=== PATIENT | male | born 1945 | race Caucasian/White ===

== ENCOUNTER 2021-11-02 10:23 | Day surgery (SDC) | payer MEDICARE, MEDICAID, SELFPAY ==
[2021-11-02] VITALS (8 sets, daily range): BP systolic 140–206; BP diastolic 79–119; PULSE 77–97; RESP 12–18; TEMP 36.1–36.9; O2SAT 93–100; BMI 28.7
--- NOTE | 2021-11-02 10:36 | ED_ITS ---
HPI - General Adult General: Chief complaint: Airway/Esophagus Foreign Body Stated complaint: Can't eat or drink Time Seen by Provider: 11/02/21 10:36 History of Present Illness: Mr. Telles is a 76-year-old gentleman with history of known hiatal hernia presents to the emergency department due to concern over recurrent nausea and vomiting. He was at his baseline health yesterday and ate dinner normally. Shortly thereafter he describes recurrent episodes of vomiting of any p.o. intake. He denies associated choking episode. He describes sensation as below the stomach a fullness or food getting stuck. He denies other significant abdominal pain. When he pushes on this area it feels bloated and he subsequently vomits. He has not been able to take his medication. Course of symptoms is intermittent. Intensity when present is moderate. No other specific changes in health, exacerbating, or alleviating factors identified. Onset (ago): hour(s) Location: abdomen Pain Consistency: intermittent Exacerbating factors: eating Review of Systems General: Reports: 10 or more systems reviewed and unremarkable except in HPI and below PFS ED PFSH: Medical History (Updated 11/15/21 @ 15:10 by Jairon De Souza MD) History of stroke Hyperlipidemia Hypertension Surgical History (Updated 11/02/21 @ 13:02 by Jairon De Souza MD) No significant past surgical history Social History (Updated 11/02/21 @ 13:02 by Jairon De Souza MD) Smoking and tobacco status: current every day smoker Physical Exam Const: COMMON NORMALS: alert GENERAL APPEARANCE: cooperative and well developed HENMT: COMMON NORMALS: normocephalic and atraumatic HEAD & SCALP: normocephalic and atraumatic Eye: COMMON NORMALS: conjunctivae normal CONJUNCTIVA: Yes conjunctivae normal SCLERA: sclerae normal Neck/C-Spine: COMMON NORMALS: supple GENERAL: Yes trachea midline Resp: COMMON NORMALS: normal respiratory effort EFFORT & INSPECTION: Yes able to speak in complete sentences Cardio: COMMON NORMALS: regular rate and regular rhythm RATE: regular rate RHYTHM: regular rhythm GI: COMMON NORMALS: Soft to palpation PALPATION: Yes Soft to palpation, Yes Tenderness to palpation present (GI) (Mild generalized), No Guarding due to palpation present (GI) and No Rigid due to palpation PERCUSSION: normal to percussion Extremity: GENERAL: Yes normal exam except as noted and No edema Neuro: COMMON NORMALS: moves all extremities SENSORIUM/ORIENTATION: Yes alert and No Orientation impaired Psych: COMMON NORMALS: mental status grossly normal and Normal thought process present THOUGHT PROCESS: Normal thought process present Course ED course: - Patient was seen and evaluated by me at bedside - Patient placed on cardiac monitors, IV access obtained - Initial evaluation notable for exam as above, no acute airway compromise - Labs and xrays personally interpreted by me. EKG showing sinus rhythm with right bundle branch block. First-degree AV block. No STEMI. - Labs notable for leukocytosis, normal hemoglobin. No significant metabolic abnormality. Delta troponin negative. - Imaging notable for no lobar consolidation or pneumothorax on the chest x-ray. Given somewhat atypical story of symptoms beginning after completion of eating dinner I feel that additional imaging is required. Likely distal esophageal foreign body with hiatal hernia. - Attempted glucagon with soda without resolution. Patient still unable to tolerate p.o. intake. - Upon serial reexamination after treatment the patient was similar - Based on patient history, evaluation, and testing as interpreted the most likely cause of the patient's condition is suspected food bolus - The results of ED evaluation were discussed with the patient including plan for endoscopy for direct visualization and cure if possible - Case was discussed with Dr. Mcghee who is on-call for GI. He came to evaluate the patient and plans to take for endoscopy. - Patient was taken to GI lab without further deterioration or significant events. Note: Click bubbles or prepopulated shore in note writing are used for assistance with data collection and billing and are inherently more limited than narrative and other text portions of this note. Please use narrative for additional clinical history and defer to narrative/free test for any case of contradictory information. If information appears in only free text or click bubble it should be considered present or absent as reported. Please contact note television script writer for clarifications of clinical information or contradictory information. MDM is a brief summary, contradictory or erroneous seeming information should be clarified and full note should be reviewed. Vital Signs: Vital signs: Vital Signs Temperature 98.2 F 11/02/21 14:29 Pulse Rate 90 11/02/21 14:34 Respiratory Rate 18 11/02/21 14:34 Blood Pressure 173/94 11/02/21 14:34 Pulse Oximetry 95 11/02/21 14:34 MDM - General Adult Medical Decision Making 76-year-old gentleman presenting with inability to tolerate oral intake. Story is somewhat atypical as he noticed symptoms after completion of the eating dinner with right emesis. No specific choking or gagging event preceding sudden change. Attempted treatment in the ED without improvement. Labs and imaging performed. Suspect food bolus. GI consulted and took patient for endoscopy. Medical Records I reviewed the patient's medical records. Lab Data I reviewed the patient's lab results. : 11/02/21 11:05 11/02/21 11:05 Radiology Impressions Chest X-Ray 11/02/21 10:53 IMPRESSION: 1. No acute cardiopulmonary finding. Chest/Abdomen/Pelvis CT 11/02/21 11:11 IMPRESSION: 1. Small esophageal hiatal hernia with suggestion of intraluminal lesion involving the distal thoracic esophagus with wall thickening and luminal narrowing. Considerations include intraluminal polypoid lesion versus obstructed hiatal hernia or associated stricture. Recommend further evaluation with endoscopy and/or upper GI. Neoplasm not excluded. 2. Intra-abdominal stomach appears unremarkable. 3. Enlarged prostate measuring 5.7 cm. Recommend correlation PSA. 4. No other acute findings. Notified Jairon De Souza MD at 11/02/2021 12:27 PM. Laboratory Results WBC 15.8 10^3/uL (4.0-10.0) H 11/02/21 11:05 RBC 5.10 10^6/uL (4.1-5.3) 11/02/21 11:05 Hgb 15.3 g/dL (11.7-16.6) 11/02/21 11:05 Hct 46.1 % (42.0-52.0) 11/02/21 11:05 MCV 90.4 fl (80-94) 11/02/21 11:05 MCH 30.0 pg (28.0-34.0) 11/02/21 11:05 MCHC 33.2 g/dL (30.0-36.0) 11/02/21 11:05 RDW 13.2 % (12.1-15.1) 11/02/21 11:05 Plt Count 319 10^3/cmm (130-400) 11/02/21 11:05 MPV 11.4 fL (7.4-10.4) H 11/02/21 11:05 Neut % (Auto) 73.3 % 11/02/21 11:05 Lymph % (Auto) 17.0 % 11/02/21 11:05 [place] % (Auto) 6.6 % 11/02/21 11:05 Eos % (Auto) 2.4 % 11/02/21 11:05 Baso % (Auto) 0.3 % 11/02/21 11:05 Neut # (Auto) 11.56 10^3/uL (1.8-7.7) H 11/02/21 11:05 Lymph # (Auto) 2.7 10^3/uL (0.8-4.8) 11/02/21 11:05 [place] # (Auto) 1.0 10^3/uL (0.2-0.9) H 11/02/21 11:05 Eos # (Auto) 0.4 10^3/uL (0.0-0.8) 11/02/21 11:05 Baso # (Auto) 0.1 10^3/uL (0.0-0.1) 11/02/21 11:05 Nucleated RBC % (auto) 0 % 11/02/21 11:05 Nucleated RBCs # 0.0 /100WBC 11/02/21 11:05 Sodium 138 mmol/L (136-145) 11/02/21 11:05 Potassium 4.0 mmol/L (3.5-5.1) 11/02/21 11:05 Chloride 101 mmol/L (98-107) 11/02/21 11:05 Carbon Dioxide 25 mmol/L (22-29) 11/02/21 11:05 Anion Gap 16.0 (5-19) 11/02/21 11:05 BUN 19 mg/dL (8-23) 11/02/21 11:05 Creatinine 0.9 mg/dL (0.7-1.2) 11/02/21 11:05 GFR Calculation Not Reportable 11/02/21 11:05 Glucose 116 mg/dL (65-115) H 11/02/21 11:05 Calculated Osmolality 289 mOsm/kg (285-295) 11/02/21 11:05 Calcium 9.2 mg/dL (8.5-10.5) 11/02/21 11:05 Total Bilirubin 0.6 mg/dL (0.15-1.2) 11/02/21 11:05 AST 18 U/L (0-40) 11/02/21 11:05 ALT 23 U/L (0-41) 11/02/21 11:05 Alkaline Phosphatase 89 IU/L (40-130) 11/02/21 11:05 Troponin T Baseline 22 ng/L (0-15) H 11/02/21 11:05 Troponin T 120 Minute 20.58 ng/L (0-15) H 11/02/21 13:26 Delta Troponin T -1.42 ABS# (0-10) L 11/02/21 13:26 Total Protein 7.9 g/dL (6.6-8.7) 11/02/21 11:05 Albumin 4.5 g/dL (3.5-5.2) 11/02/21 11:05 Globulin 3.4 g/dL (1.3-4.6) 11/02/21 11:05 Lipase 30 U/L (13-60) 11/02/21 11:05 Urine Color Yellow (Yellow) 11/02/21 13:25 Urine Appearance Clear (CLEAR) 11/02/21 13:25 Urine pH 7 (5-7) 11/02/21 13:25 Ur Specific [place] 1.010 (1.005-1.030) 11/02/21 13:25 Urine Protein 3+ (Negative) H 11/02/21 13:25 Urine Glucose (UA) Norm (Normal) 11/02/21 13:25 Urine Ketones Negative (Negative) 11/02/21 13:25 Urine Blood Neg (Negative) 11/02/21 13:25 Urine Nitrate Negative (Negative) 11/02/21 13:25 Urine Bilirubin Neg (Negative) 11/02/21 13:25 Urine Urobilinogen Norm mg/dL (Negative) 11/02/21 13:25 Ur Leukocyte Esterase Negative (Negative) 11/02/21 13:25 Urine RBC 0-4 /hpf (0-2) H 11/02/21 13:25 Urine WBC None /hpf (0-5) 11/02/21 13:25 Ur Squamous Epith Cells 0-4 /hpf (0-5) H 11/02/21 13:25 Amorphous Sediment Not Reportable 11/02/21 13:25 Urine Bacteria None /hpf (NONE) 11/02/21 13:25 Hyaline Casts 0-4 /lpf H 11/02/21 13:25 H. pylori IgG Antibody Negative 11/02/21 14:13 Discharge Plan Discharge Patient Disposition: Placed in Observation Clinical Impression: Acute esophageal obstruction Condition: Stable Discharge Orders: Discharge Order (Routine); Ordered 11/02/21 Ordered By: Fady Mcghee Coding Level of Care Code ED Plodding Machine Operator for Chg Fwd Exam Comprehensive
--- NOTE | 2021-11-02 10:53 | XR_ITS ---
WS: [id number] Exam: XR chest 1V portable [id number] Date/Time of Exam: 11/02/2021 10:56 AM Reason For Exam: tachycardia, hypertension Comparison 01/06/2011. The lungs are clear and fully expanded. Normal cardiomediastinal silhouette. No pleural effusions. [place] structures are intact. XR/XR chest 1V portable [id number] IMPRESSION: 1. No acute cardiopulmonary finding.
--- NOTE | 2021-11-02 10:54 | ECG_ITS ---
[facility] Test Date: 2021-11-02 Pat Name: Pati Telles Department: Room: Gender: Male Legal Process Specialist: : 1945 Requested By: Jairon De Souza Order Number: [id number] Shanthi MD: Ethan Dozier M.D. Measurements Intervals [place] Rate: 84 P: 99 TN: 240 QRS: 184 QRSD: 142 T: 50 QT: 385 QTc: 457 Interpretive Statements SINUS RHYTHM WITH SINUS ARRHYTHMIA WITH FIRST DEGREE AV BLOCK INDETERMINATE AXIS RIGHT BUNDLE BRANCH BLOCK [120+ ms QRS DURATION, UPRIGHT V1, 40+ ms S IN I/aVL/V4/V5/V6] No previous ECG available for comparison Electronically Signed On 11-02-2021 22:30:15 CDT by Ethan Dozier M.D. [email or web address] [email or web address] [id number]
--- NOTE | 2021-11-02 11:11 | CT_ITS ---
WS: [id number] CT CHEST, ABDOMEN, AND PELVIS TECHNIQUE: Noncontrast CT of the chest, abdomen, and pelvis with coronal and sagittal reformatted elijah ges. CLINICAL INFORMATION: n/v, hx hiatal hernia, ?obstruction/food bolus COMPARISON: None. DLP: 2051.[address] scans at [facility] use at least one of these dose optimization techniques: automated e xposure control; mA and/or kV adjustment per patient size (includes targeted exams where dose is matc hed to clinical indication); or iterative reconstruction. CT CHEST: Mild chronic emphysematous changes. No acute pulmonary infiltrates. No focal pneumonia or pleural flu id. Normal caliber thoracic aorta. Aortic calcification. Coronary calcification. No mediastinal or hi lar lymphadenopathy. No axillary lymphadenopathy. Small nodules in the thyroid. Mild thoracic kyphosis. Mild thoracic curve. Small esophageal hiatal hernia with thickening at the di stal esophagus and GE junction. Suggestion of intraluminal lesion measuring 1.5 cm with luminal narro wing may represent intraluminal polypoid lesion or obstructed hernia. This can be further evaluated w ith endoscopy. Stomach otherwise appears normal. CT ABDOMEN AND PELVIS: Noncontrast liver is normal. Normal gallbladder. Normal spleen. Fatty atrophy of the pancreas. Adrena l glands are normal. Mild bilateral renal cortical atrophy. No hydronephrosis. Normal caliber abdomin al aorta. Mild aortic calcification. Enlarged prostate measuring 5.7 CM. Recommend correlation PSA. N ormal sigmoid colon. No evidence of high-grade small or large bowel obstruction. Normal appendix in t he RIGHT lower quadrant. No periaortic pelvic or inguinal lymphadenopathy. Fat-containing umbilical hernia. CT/[place] [id number] IMPRESSION: 1. Small esophageal hiatal hernia with suggestion of intraluminal lesion invol ving the distal thoracic esophagus with wall thickening and luminal narrowing. Considerations include intraluminal polypoid lesion versus obstructed hiatal he rnia or associated stricture. Recommend further evaluation with endoscopy and/o r upper GI. Neoplasm not excluded. 2. Intra-abdominal stomach appears unremarkable. 3. Enlarged prostate measuring 5.7 cm. Recommend correlation PSA. 4. No other acute findings. Notified Jairon De Souza MD at 11/02/2021 12:27 PM.
[2021-11-02 11:14] LABS: Basophils # 0.1 10^3/uL (0.0-0.1); Basophils % 0.3 %; Eosinophils # 0.4 10^3/uL (0.0-0.8); Eosinophils % 2.4 %; Hematocrit 46.1 % (42.0-52.0); Hemoglobin 15.3 g/dL (11.7-16.6); Lymphocytes # 2.7 10^3/uL (0.8-4.8); Mean Corpuscular HGB Conc 33.2 g/dL (30.0-36.0); Mean Corpuscular Volume 90.4 fl (80-94); Mean Platelet Volume 11.4 fL (7.4-10.4); Monocytes % 6.6 %; Neutrophils # 11.56 10^3/uL (1.8-7.7); Neutrophils % 73.3 %; Nucleated Red Blood Cells % 0 %; Platelet Count 319 10^3/cmm (130-400); Red Cell Distribution Width 13.2 % (12.1-15.1); White Blood Count 15.8 10^3/uL (4.0-10.0)
[2021-11-02] MEDS: ondansetron 2 mg/ML SDV 2 mL 4 MG IVP (11:26)
[2021-11-02 11:37] LABS: Alanine Aminotransferase 23 U/L (0-41); Albumin Level 4.5 g/dL (3.5-5.2); Alkaline Phosphatase 89 IU/L (40-130); Aspartate Amino Transferase 18 U/L (0-40); Blood Urea Nitrogen 19 mg/dL (8-23); Calcium 9.2 mg/dL (8.5-10.5); Carbon Dioxide 25 mmol/L (22-29); Chloride 101 mmol/L (98-107); Globulin 3.4 g/dL (1.3-4.6); Glucose 116 mg/dL (65-115); Lipase 30 U/L (13-60); Osmolality Calculated 289 mOsm/kg (285-295); Sodium 138 mmol/L (136-145); Total Bilirubin 0.6 mg/dL (0.15-1.2); Total Protein 7.9 g/dL (6.6-8.7)
[2021-11-02 11:38] LABS: Troponin(5th) Baseline 22 ng/L (0-15)
--- NOTE | 2021-11-02 12:54 | ECG_ITS ---
[facility] Test Date: 2021-11-02 Pat Name: Pati Telles Department: Room: Gender: Male Correspondence Renew Clerk: : 1945 Requested By: Jairon De Souza Order Number: [id number] Shanthi MD: Ethan Dozier M.D. Measurements Intervals [place] Rate: 85 P: 69 MA: 231 QRS: 153 QRSD: 140 T: 52 QT: 385 QTc: 460 Interpretive Statements SINUS RHYTHM WITH SINUS ARRHYTHMIA WITH FIRST DEGREE AV BLOCK INDETERMINATE AXIS RIGHT BUNDLE BRANCH BLOCK [120+ ms QRS DURATION, UPRIGHT V1, 40+ ms S IN I/aVL/V4/V5/V6] Compared to ECG 11/02/2021 11:01:43 No significant changes Electronically Signed On 11-02-2021 22:32:07 CDT by Ethan Dozier M.D. [id number]
--- NOTE | 2021-11-02 13:32 | P.HP_ITS ---
Same Day Surgery H&P Indication for Procedure/HPI DATE OF PROCEDURE: November 02, 2021 CHIEF COMPLAINT/INDICATIONFOR SURGICAL PROCEDURE: Meat impaction PREOP DIAGNOSIS: Meat impaction PLANNED PROCEDURE: Operation Date: 11/02/21 13:30 Proposed Procedures p EGD WITH FOREIGN BODY REMOVAL(Not Applicable) - Fady Mcghee MD Pertinent History/Comorbid Conditions* Medical History (Updated 11/02/21 @ 13:02 by Jarion De Souza MD) History of stroke Hyperlipidemia Hypertension Surgical History (Updated 11/02/21 @ 13:02 by Jairon De Souza MD) No significant past surgical history Social History Smoking and tobacco status: current every day smoker Pertinent Exam Findings alert, oriented x 3, clear to auscultation bilaterally, regular rate & rhythm, operative site marked and procedure specific exam findings Recommendations Surgery/Procedure today Coding Level of Care Code Acute Milk Route Deliverer for Shemar Candelaria
[2021-11-02] MEDS: sodium chloride 0.9% 1,000 ML 30 ML IV (13:40)
[2021-11-02 13:58] LABS: Add Urine Culture? No; Add Urine Microscopic? YES; Bilirubin Urine Neg (Negative); Blood Urine Neg (Negative); Glucose Urine UA Norm (Normal); Ketones Urine Negative (Negative); Leukocyte Esterase Urine Negative (Negative); Nitrate Urine Negative (Negative); Protein Urine 3+ (Negative); RBC Urine 0-4 /hpf (0-2); Squamous Epithelial Cell Urine 0-4 /hpf (0-5); Urine Appearance Clear (CLEAR); Urine Color Yellow (Yellow); Urobilinogen Urine Norm (Negative); pH Urine 7 (5-7)
[2021-11-02 13:59] LABS: Hyaline Casts Urine 0-4 /lpf
[2021-11-02 14:07] LABS: Troponin 5 2HR 20.58 ng/L (0-15)
[2021-11-02 14:13] LABS: Troponin 5 2HR Delta -1.42 ABS# (0-10)
--- NOTE | 2021-11-02 14:26 | ANES.PREANE2 ---
Pre-Anesthetic Assessment Height/Weight: Height 1.83 m Weight 96.162 kg Temp Pulse Resp BP Pulse Ox 97.0 F L 77 16 172/79 94 11/02/21 14:15 11/02/21 14:23 11/02/21 14:23 11/02/21 14:23 11/02/21 14:23 Preop Diagnosis: Meat impaction Operation Date: 11/02/21 13:30 Proposed Procedures p EGD WITH FOREIGN BODY REMOVAL(Not Applicable) - Fady Mcghee MD Familial anesthetic complications: None Was Beta Ken taken within 24 hours: N/A Was Clonidine taken within 24 hours: N/A Social No alcohol and No tobacco Exam alert, oriented x 3 and regular rate & rhythm Airway Submandibular: within normal limits Cervical ROM: within normal limits Mallampati: Class II Dentition: false Pulmonary Chronic Obstructive Pulmonary Disease CV/HEM Hypertension GI Gastroesophageal Reflux Disease Food bolus Metabolic Hyperlipidemia Neuropsych Cerebrovascular Accident Anesthetic Plan ASA status: 3E Anesthesia: General (RSI) Medications/Allergies Home Medications Medication Instructions Recorded Confirmed Last Taken Type budesonide-formoterol HFA 160 2 puff INHALATION BID 11/02/21 11/02/21 Unknown History mcg-4.5 mcg/actuation aerosol inhaler (Symbicort) clonidine HCl 0.1 mg tablet 0.1 mg PO TID PRN 11/02/21 11/02/21 Unknown History diclofenac potassium 50 mg tablet 50 mg PO BID 11/02/21 11/02/21 Unknown History finasteride 5 mg tablet 5 mg PO DAILY 11/02/21 11/02/21 Unknown History gabapentin 300 mg capsule 300 mg PO TID 11/02/21 11/02/21 Unknown History losartan 50 mg tablet 50 mg PO DAILY 11/02/21 11/02/21 Unknown History metoprolol tartrate 100 mg tablet 100 mg PO BID 11/02/21 11/02/21 Unknown History simvastatin 40 mg tablet 40 mg PO DAILY 11/02/21 11/02/21 Unknown History tamsulosin 0.4 mg capsule 0.4 mg PO DAILY 11/02/21 11/02/21 Unknown History tramadol 50 mg tablet 50 mg PO QID PRN 11/02/21 11/02/21 Unknown History Allergies Allergy/AdvReac Type Severity Reaction Status Date / Time No Known Allergies Allergy Verified 11/02/21 14:07 [facility] Anesthesia Medical History (Updated 11/02/21 @ 13:02 by Jairon De Souza MD) History of stroke Hyperlipidemia Hypertension Surgical History (Updated 11/02/21 @ 13:02 by Jairon De Souza MD) No significant past surgical history Social History (Updated 11/02/21 @ 13:02 by Jairon De Souza MD) Smoking and tobacco status: current every day smoker Data Anesthesia : 11/02/21 11:05 11/02/21 11:05 Short CBC 11/02/21 Range/Units 11:05 WBC 15.8 H (4.0-10.0) 10^3/uL Hgb 15.3 (11.7-16.6) g/dL Hct 46.1 (42.0-52.0) % MCV 90.4 (80-94) fl Plt Count 319 (130-400) 10^3/cmm Neut % (Auto) 73.3 % Neut # (Auto) 11.56 H (1.8-7.7) 10^3/uL BMP 11/02/21 11:05 Sodium 138 Potassium 4.0 Chloride 101 Carbon Dioxide 25 BUN 19 Creatinine 0.9 Glucose 116 H Calcium 9.2 Cardiac Enzymes 11/02/21 11/02/21 Range/Units 11:05 13:26 Troponin T Baseline 22 H (0-15) ng/L Troponin T 120 Minute 20.58 H (0-15) ng/L Delta Troponin T -1.42 L (0-10) ABS# Liver Function 11/02/21 Range/Units 11:05 Total Bilirubin 0.6 (0.15-1.2) mg/dL AST 18 (0-40) U/L ALT 23 (0-41) U/L Alkaline Phosphatase 89 (40-130) IU/L Albumin 4.5 (3.5-5.2) g/dL Urine 11/02/21 Range/Units 13:25 Urine Color Yellow (Yellow) Urine Appearance Clear (CLEAR) Urine pH 7 (5-7) Ur Specific [place] 1.010 (1.005-1.030) Urine Protein 3+ H (Negative) Urine Glucose (UA) Norm (Normal) Urine Ketones Negative (Negative) Urine Nitrate Negative (Negative) Urine Bilirubin Neg (Negative) Ur Leukocyte Esterase Negative (Negative) Urine RBC 0-4 H (0-2) /hpf Urine WBC None (0-5) /hpf Cardiac Studies: No Data to Display
--- NOTE | 2021-11-02 14:28 | ANE.PACU2 ---
Inpatient post-anesthesia follow up: Airway intact: Yes Vital signs: Temperature 97.0 F Pulse Rate 77 Respiratory Rate 16 Blood Pressure 172/79 Pulse Oximetry 94 Oxygen Delivery Me thod Room Air Oxygen Flow Rate 10 Fraction of Inspir ed Oxygen Hydration adequate: Yes Nausea and vomiting: No Pain level: 2 Mental status: Baseline
--- NOTE | 2021-11-02 14:38 | PC.NURSE ---
1429 received patient from Sruthi SEGURA. Patient alert, no distress noted, respirations even and nonlabored. 1432 patients at bedside. patient talkative, denies pain.
--- NOTE | 2021-11-02 14:43 | PC.NURSE ---
Dr Mcghee at bedside visiting with patient and answering questions.
[2021-11-03 14:17] LABS: H. Pylori / CLO Test Negative
== END 2021-11-02 15:09 | disposition home or self-care (01) ==
LOC: ER 13:02 → GILAB 13:26
PROVIDERS: Emergency Provider Emergency Medicine; PCP Family Medicine; Visit Provider Internal Medicine
PROC: 0DJ08ZZ Inspection of Upper Intestinal Tract, Via Natural or Artificial Opening Endoscopic (ICD-10-PCS; CPT 43235; principal; 2021-11-02 13:30)
DX: T18.128A Food in esophagus causing other injury, initial encounter (principal); E78.5 Hyperlipidemia, unspecified; I10 Essential (primary) hypertension; Z86.73 Personal history of transient ischemic attack (TIA), and cerebral infarction without residual deficits; K29.71 Gastritis, unspecified, with bleeding; K25.7 Chronic gastric ulcer without hemorrhage or perforation; J44.9 Chronic obstructive pulmonary disease, unspecified; F17.210 Nicotine dependence, cigarettes, uncomplicated
CPT/HCPCS: 36415; 43239; 43247; 71045; 71250; 74176; 80053; 81001; 83690; 84484; 85025; 87077; 93005; J0330; J1610; J2405; J2704; J7030

== ENCOUNTER → 2022-08-21 14:00 | Outpatient (BNVA) | payer MEDICARE, MEDICAID, SELFPAY | PROVIDERS: PCP Family Medicine; Visit Provider Thoracic Surgery (Cardiothoracic Vascular Surgery) | DX: I73.9 Peripheral vascular disease, unspecified (principal) | CPT/HCPCS: 99203 ==

== ENCOUNTER → 2022-09-04 11:01 | Outpatient (BNVA) | payer MEDICARE, MEDICAID, SELFPAY | PROVIDERS: PCP Family Medicine; Referring Provider Nurse Practitioner Family; Visit Provider Orthopaedic Surgery | DX: M43.16 Spondylolisthesis, lumbar region (principal) | CPT/HCPCS: 72110; 99204 ==

== ENCOUNTER 2022-09-28 13:28 | Outpatient (CLI) | payer MEDICARE, MEDICAID, SELFPAY ==
--- NOTE | 2022-09-28 | USR_ITS ---
PROCEDURE INFORMATION: Exam: US Duplex Lower Extremity Arteries Exam date and time: 09/28/2022 1:57 PM Age: 76 years old Clinical indication: Other: Pulselessness; Additional info: Bilat leg pain TECHNIQUE: Imaging protocol: Real-time ultrasound scan of the arteries of the bilateral lower extremities with 2-D adan scale, color Doppler flow and spectral waveform analysis. Images documented and saved. COMPARISON: [place] [id number] 11/02/2021 11:33 AM FINDINGS: Peak systolic velocities on the RIGHT are as follows: Iliac artery 76 cm/s biphasic Common femoral artery 115 cm/s there monophasic Proximal superficial femoral artery 101 cm/s biphasic Mid superficial femoral artery 134 cm/s biphasic Distal superficial femoral artery 234 cm/s biphasic Popliteal artery 62 cm/s biphasic Posterior tibial artery 50 cm/s biphasic Dorsalis pedis artery 28 cm/s biphasic Peak systolic velocities on the LEFT are as follows: Iliac artery 47 cm/s monophasic Common femoral artery 53 cm/s monophasic Proximal superficial femoral artery 38 cm/s monophasic Distal superficial femoral artery 115 cm/s monophasic Popliteal artery 22 cm/s monophasic Posterior tibial artery 19 cm/s monophasic Dorsalis pedis artery 15 cm/s monophasic No arterial occlusion. US/[place] [id number] IMPRESSION: No arterial occlusion. There is peripheral arterial disease.
== END 2022-09-28 13:29 | disposition home or self-care (01) ==
PROVIDERS: PCP Family Medicine; Visit Provider Thoracic Surgery (Cardiothoracic Vascular Surgery)
DX: M79.604 Pain in right leg (principal); I73.9 Peripheral vascular disease, unspecified
CPT/HCPCS: 93925

== ENCOUNTER → 2023-06-04 10:59 | Outpatient (BNVA) | payer MEDICARE, MEDICAID, SELFPAY | PROVIDERS: PCP Family Medicine; Referring Provider Family Medicine; Visit Provider Surgery | DX: Z12.11 Encounter for screening for malignant neoplasm of colon (principal) | CPT/HCPCS: 99024; 99203; 99204 ==

== ENCOUNTER 2023-06-16 12:53 | Inpatient (IN) | payer MEDICARE, MEDICAID, SELFPAY ==
[2023-06-16] VITALS (12 sets, daily range): BP systolic 118–191; BP diastolic 90–129; PULSE 105–142; RESP 15–28; TEMP 36.9–37.4; O2SAT 90–96; BMI 28.5
--- NOTE | 2023-06-16 13:21 | XRR_ITS ---
PROCEDURE INFORMATION: Exam: XR Chest Exam date and time: 06/16/2023 1:37 PM Age: 77 years old Clinical indication: Shortness of breath; Patient HX: SOB; Cough; Tremors; HX copd TECHNIQUE: Imaging protocol: Radiologic exam of the chest. Views: 1 view. COMPARISON: CT chest [place] [id number] 11/02/2021 11:33 AM FINDINGS: Lungs: Subtle opacity seen at the right lower lung base. Mild bilateral curvilinear opacities which can be seen with emphysematous lung changes. Pleural spaces: Unremarkable. No pleural effusion. No pneumothorax. Heart/Mediastinum: Unremarkable. No cardiomegaly. Bones/joints: Unremarkable. XR/XR chest 1V portable [id number] IMPRESSION: Subtle left lower lung base opacity. Differential diagnosis includes infectious versus neoplastic processes. Further evaluation with cross-sectional imaging may be obtained.
--- NOTE | 2023-06-16 13:21 | ECG_ITS ---
[facility] Test Date: 2023-06-16 Pat Name: Pati Telles Department: Room: Gender: Male Hog Tender: : 1945 Requested By: Gildardo Ariza Order Number: [id number] Shanthi MD: Ethan Dozier M.D. Measurements Intervals [place] Rate: 141 P: 0 MD: 0 QRS: 144 QRSD: 137 T: 43 QT: 302 QTc: 463 Interpretive Statements ATRIAL FIBRILLATION WITH RAPID VENTRICULAR RESPONSE RIGHT AXIS DEVIATION [QRS AXIS > 100] RIGHT BUNDLE BRANCH BLOCK [120+ ms QRS DURATION, UPRIGHT V1, 40+ ms S IN I/aVL/V4/V5/V6] Compared to ECG 11/02/2021 12:31:30 Right-axis deviation now present Sinus rhythm no longer present Sinus arrhythmia no longer present First degree AV block no longer present Indeterminate axis no longer present Electronically Signed On 06-17-2023 8:37:20 JEWEL STRIPPER by Ethan Dozier M.D. [id number]
--- NOTE | 2023-06-16 13:38 | W.ED.SOB ---
HPI - SOB/Dyspnea General: Chief Complaint: Shortness of Breath/Dyspnea Stated Complaint: sob, shakes, cough Time Seen by Provider: 06/16/23 13:30 History of Present Illness: HPI Narrative: 77-year-old male patient comes in today with shortness of breath and cough for the last 2 weeks. Patient has a history of COPD. Patient has not yet been treated for his cough and congestion. Patient denies any chest pain. Patient appears unwell but not toxic. Skin is warm and dry. Vital signs are normal except for some elevated blood pressure in irregular rapid pulse. Patient has a history of coronary artery disease, stroke syndrome, prostate disease and chronic pain syndrome. Patient was found in atrial fibrillation but denies any history of atrial fibs. Review of Systems General: Reports: 10 or more systems reviewed and unremarkable except in HPI and below Resp: Reports: productive cough PFSH ED PFSH: Medical History (Updated 06/16/23 @ 14:30 by DIDI Chaudhry) History of stroke Hyperlipidemia Hypertension Surgical History (Updated 06/04/23 @ 11:47 by DIANE Gann) No significant past surgical history Family History Father CAD (coronary artery disease) Diabetes Mother CAD (coronary artery disease) Sister Cancer Denies family history of Hypertension Social History Smoking and tobacco/nicotine status: former use of tobacco/nicotine Quit status (tobacco/nicotine): has quit using Year quit tobacco: 2022 Former quit date comment: smoked up to 2 pack per day x 61 years Alcohol intake: former Year of sobriety/quit date alcohol: 2013 Substance/Drug Use: never Household members: spouse Housing: House Marital status: Number of children: 4 Pets and animals: No Physical Exam Const: COMMON NORMALS: alert HENMT: COMMON NORMALS: normocephalic HEAD & SCALP: normocephalic Chest: COMMONS NORMALS: normal inspection of the chest Resp: COMMON NORMALS: normal respiratory effort AUSCULTATION: rhonchi and diminished lung sounds Cardio: RATE: tachycardic RHYTHM: abnormal rhythm GI: COMMON NORMALS: Soft to palpation PALPATION: Yes Soft to palpation Back/Pelvis: COMMON NORMALS: thoracic and lumbar spine normal to inspection Extremity: COMMON NORMALS: no pedal edema Neuro: SENSORIUM/ORIENTATION: Yes alert Skin: NARRATIVE SKIN EXAM: Senile purpura, fair skin turgor. Course ED course: 1340, EKG showed a A-fib with RVR in the 130s to 150s. Reviewed this with Dr. Ariza who recommended a bolus of Cardizem and fluids. Patient does take metoprolol 200 mg daily although when questioned patient has no history of atrial fibs. Dr. Ariza recommended 10 of Cardizem followed by IV Cardizem drip. Vital Signs: Vital signs: Vital Signs Temperature 98.4 F 06/16/23 13:04 Pulse Rate 116 H 06/16/23 13:04 Respiratory Rate 16 06/16/23 13:04 Blood Pressure 175/109 06/16/23 13:04 Pulse Oximetry 94 06/16/23 13:04 Oxygen Delivery Me thod Room Air 06/16/23 13:04 MDM - SOB/Dyspnea Medical Decision Making Patient comes in today with persistent cough x 2 weeks. On exam is found patient was in atrial fibs with RVR in the 150s. Patient has decreased breath sounds with rhonchorous. Abdomen is soft with normal bowel sounds. No edema is noted in the extremities. Differential diagnosis includes but not limited to pneumonia, sepsis, atrial fibs new onset, chest x-ray noted patchy infiltrates in the right lower lung. CBC notes a white count of 14,000. Lactic was 2.8. CMP noted creatinine 1.0. BNP was elevated at 4300 baseline is unknown. Flu and COVID were negative. Patient was treated with Cardizem bolus and Cardizem drip for his atrial fibs. Patient be treated for SIRS versus sepsis with IV fluids and antibiotics. Reviewed this with Dr. Ariza who agreed to plan. Dr. Arellano was consulted for hospitalist admission. Lab Data 06/16/23 13:46 06/16/23 13:46 Labs/Radiology: Radiology Impressions Chest X-Ray 06/16/23 13:21 IMPRESSION: Subtle left lower lung base opacity. Differential diagnosis includes infectious versus neoplastic processes. Further evaluation with cross-sectional imaging may be obtained. Laboratory Results WBC 14.34 10^3/uL (3.29-11.43) H 06/16/23 13:46 RBC 4.80 10^6/uL (3.85-5.65) 06/16/23 13:46 Hgb 14.60 g/dL (11.27-16.99) 06/16/23 13:46 Hct 45.0 % (37-53) 06/16/23 13:46 MCV 93.8 fl (82-101) 06/16/23 13:46 MCH 30.4 pg (27-33) 06/16/23 13:46 MCHC 32.4 g/dL (30-55) 06/16/23 13:46 RDW 13.4 % (12.1-15.1) 06/16/23 13:46 Plt Count 426 10^3/cmm (157-399) H 06/16/23 13:46 MPV 10.3 fL (7.4-10.4) 06/16/23 13:46 Neut % (Auto) 78.9 % 06/16/23 13:46 Lymph % (Auto) 12.7 % 06/16/23 13:46 [place] % (Auto) 7.2 % 06/16/23 13:46 Eos % (Auto) 0.3 % 06/16/23 13:46 Baso % (Auto) 0.3 % 06/16/23 13:46 Neut # (Auto) 11.31 10^3/uL (1.8-7.7) H 06/16/23 13:46 Lymph # (Auto) 1.8 10^3/uL (0.8-4.8) 06/16/23 13:46 [place] # (Auto) 1.0 10^3/uL (0.2-0.9) H 06/16/23 13:46 Eos # (Auto) 0.1 10^3/uL (0.0-0.8) 06/16/23 13:46 Baso # (Auto) 0.0 10^3/uL (0.0-0.1) 06/16/23 13:46 Nucleated RBC % (auto) 0 % 06/16/23 13:46 Nucleated RBCs # 0.0 /100WBC 06/16/23 13:46 Sodium 142 mmol/L (136-145) 06/16/23 13:46 Potassium 4.3 mmol/L (3.5-5.1) 06/16/23 13:46 Chloride 103 mmol/L (98-107) 06/16/23 13:46 Carbon Dioxide 26 mmol/L (22-29) 06/16/23 13:46 Anion Gap 17.3 (5-19) 06/16/23 13:46 BUN 14 mg/dL (8-23) 06/16/23 13:46 Creatinine 1.0 mg/dL (0.7-1.2) 06/16/23 13:46 GFR Calculation Not Reportable 06/16/23 13:46 Glucose 126 mg/dL (65-115) H 06/16/23 13:46 Calculated Osmolality 296 mOsm/kg (285-295) H 06/16/23 13:46 Lactic Acid 2.8 mmol/L (0.5-2.2) H 06/16/23 13:46 Calcium 9.3 mg/dL (8.5-10.5) 06/16/23 13:46 Total Bilirubin 0.5 mg/dL (0.15-1.2) 06/16/23 13:46 AST 15 U/L (0-40) 06/16/23 13:46 ALT 18 U/L (0-41) 06/16/23 13:46 Alkaline Phosphatase 98 U/L (40-130) 06/16/23 13:46 NT-Pro-B Natriuret Pep 4303 pg/mL (0-450) H 06/16/23 13:46 Total Protein 7.9 g/dL (6.6-8.7) 06/16/23 13:46 Albumin 4.0 g/dL (3.5-5.2) 06/16/23 13:46 Globulin 3.9 g/dL (1.3-4.6) 06/16/23 13:46 Influenza Type A Ag negative (Negative) 06/16/23 13:47 Influenza Type B Ag negative (Negative) 06/16/23 13:47 SARS-CoV-2 Ag (Rapid) negative (Negative) 06/16/23 13:47 All radiology interpretation(s) finalized by discharge Discharge Plan Discharge Patient Disposition: Admitted As Inpatient Clinical Impression: Sepsis Qualifiers: Sepsis type: sepsis due to unspecified organism Sepsis acute organ dysfunction status: with acute organ dysfunction Severe sepsis acute organ dysfunction type: acute respiratory failure Acute respiratory failure type: unspecified Severe sepsis shock status: without septic shock Qualified Code(s): A41.9 - Sepsis, unspecified organism Pneumonia Qualifiers: Pneumonia type: due to unspecified organism Laterality: bilateral Lung location: lower lobe of lung Qualified Code(s): J18.9 - Pneumonia, unspecified organism Atrial fibrillation Qualifiers: Atrial fibrillation type: unspecified Qualified Code(s): I48.91 - Unspecified atrial fibrillation Condition: Stable Coding Level of Care Code ED Lap Winding Machine Operator for Shemar Candelaria
[2023-06-16] MEDS: sodium chloride 0.9% 1,000 ML 999 ML IV (13:44)
[2023-06-16] MEDS: dilTIAZem 5 mg/mL SDV 5 mL 10 MG IVP (13:50)
[2023-06-16 13:55] LABS: Basophils % 0.3 %; Eosinophils # 0.1 10^3/uL (0.0-0.8); Eosinophils % 0.3 %; Lymphocytes # 1.8 10^3/uL (0.8-4.8); Lymphocytes % 12.7 %; Mean Corpuscular HGB Conc 32.4 g/dL (30-55); Mean Corpuscular Hemoglobin 30.4 pg (27-33); Mean Corpuscular Volume 93.8 fl (82-101); Mean Platelet Volume 10.3 fL (7.4-10.4); Monocytes % 7.2 %; Neutrophils # 11.31 10^3/uL (1.8-7.7); Neutrophils % 78.9 %; Nucleated Red Blood Cells % 0 %; Platelet Count 426 10^3/cmm (157-399); Red Cell Distribution Width 13.4 % (12.1-15.1); White Blood Count 14.34 10^3/uL (3.29-11.43)
[2023-06-16] MEDS: dilTIAZem 100 MG in sodium chloride 0.9% (add-van) 100 ML IV (14:10)
[2023-06-16] MEDS: piperacillin-tazobactam 4.5 GM in sodium chloride 0.9% (plus) 50 ML IV (14:12)
[2023-06-16 14:14] LABS: Lactic Sepsis W/Reflex 2.8 mmol/L (0.5-2.2)
[2023-06-16 14:24] LABS: Alanine Aminotransferase 18 U/L (0-41); Alkaline Phosphatase 98 U/L (40-130); Anion Gap 17.3 (5-19); Aspartate Amino Transferase 15 U/L (0-40); Blood Urea Nitrogen 14 mg/dL (8-23); Calcium 9.3 mg/dL (8.5-10.5); Carbon Dioxide 26 mmol/L (22-29); Chloride 103 mmol/L (98-107); Globulin 3.9 g/dL (1.3-4.6); Glucose 126 mg/dL (65-115); NT Pro B Type Natriuretic Pept 4303 pg/mL (0-450); Osmolality Calculated 296 mOsm/kg (285-295); Potassium 4.3 mmol/L (3.5-5.1); Sodium 142 mmol/L (136-145); Total Bilirubin 0.5 mg/dL (0.15-1.2); Total Protein 7.9 g/dL (6.6-8.7)
--- NOTE | 2023-06-16 14:24 | P.HP_ITS ---
Providers/Chief Complaint 2 Primary Care Provider: Caterina Barrett DO Chief Complaint: sob, shakes, cough History of Present Illness Pati Telles is a 77 year old male does not use oxygen at home, active smoker, presented to hospital with chief complaint of shortness of breath, nonproductive cough and palpitations. Patient has not with any chest pain at all, does not drink alcohol, he has been feeling sick for last couple of days today his symptom got worse breath prompted his visit to the ER. In the ER he has been diagnosed new onset A-fib, sepsis related pneumonia, I have tested CTA chest rule out thromboembolic phenomenon considering high D-dimer. Chest x-ray showing lingular pneumonia. Heart rate still in 150s despite Cardizem drip at 12, will add amiodarone after a bolus, he has been given therapeutic dose of Lovenox in the ER He has high BNP no previous history of congestive heart failure. Review of Systems 2 Const: Reports: chills, fatigue and malaise Eyes: Denies: change in vision ENMT: Denies: throat pain or hoarseness Card: Reports: palpitations, irregular heart rhythm and swelling of feet/ankles Resp: Reports: dyspnea GI: Denies: abdominal pain : Denies: flank pain Musc: Denies: neck pain Medications/Allergies Home Medications Medication Instructions Recorded Confirmed Last Taken Type budesonide-formoterol HFA 160 2 puff inhalation BID 11/02/21 06/16/23 06/15/23 History mcg-4.5 mcg/actuation aerosol inhaler (Symbicort) clonidine HCl 0.1 mg tablet 0.1 mg PO TID PRN Blood Pressure 11/02/21 06/16/23 Unknown History finasteride 5 mg tablet 5 mg PO DAILY 11/02/21 06/16/23 06/15/23 History gabapentin 300 mg capsule 300 mg PO TID 11/02/21 06/16/23 06/15/23 History metoprolol tartrate 100 mg tablet 100 mg PO BID 11/02/21 06/16/23 06/16/23 History simvastatin 40 mg tablet 40 mg PO DAILY 11/02/21 06/16/23 06/15/23 History tamsulosin 0.4 mg capsule 0.4 mg PO DAILY 11/02/21 06/16/23 06/15/23 History tramadol 50 mg tablet 50 mg PO QID PRN Pain 11/02/21 06/16/23 06/16/23 History albuterol sulfate 2.5 mg/3 mL 2.5 mg inhalation Q6H PRN 06/16/23 06/16/23 06/16/23 History (0.083 %) solution for nebulization Shortness Of Breath Or Wheezing Allergies Allergy/AdvReac Type Severity Reaction Status Date / Time lisinopril Allergy ADR-Faintin Verified 06/16/23 13:04 g PFSH Acute 2 PFSH: Medical History History of stroke Hyperlipidemia Hypertension Surgical History (Updated 06/16/23 @ 15:50 by David Arellano MD) H/O right knee surgery History of ankle surgery History of esophagogastroduodenoscopy (EGD) No significant past surgical history Family History Father CAD (coronary artery disease) Diabetes Mother CAD (coronary artery disease) Sister Cancer Denies family history of Hypertension Social History Smoking and tobacco/nicotine status: former use of tobacco/nicotine Quit status (tobacco/nicotine): has quit using Year quit tobacco: 2022 Former quit date comment: smoked up to 2 pack per day x 61 years Alcohol intake: former Year of sobriety/quit date alcohol: 2013 Substance/Drug Use: never Household members: spouse Housing: House Marital status: Number of children: 4 Pets and animals: No Vitals/I&O/Wt Last Vital Signs Temp 98.4 F 06/16/23 13:04 Pulse 116 H 06/16/23 13:04 Resp 16 06/16/23 13:04 BP 175/109 06/16/23 13:04 Pulse Ox 94 06/16/23 13:04 O2 Del Method Room Air 06/16/23 13:04 Weight last 48 hrs Weight 95.254 kg Physical Exam 2 Narrative: Patient is awake and alert A-fib RVR heart rate fluctuating between 130s to 150s Currently on Cardizem Awake and alert Currently on room air Abdomen soft Lower extremity no edema at the bedside Data 06/16/23 13:46 02//24 13:46 A&P Assessment and plan (1) Hypertension: (2) Atrial fibrillation: Qualifiers: Atrial fibrillation type: unspecified Qualified Code(s): I48.91 - Unspecified atrial fibrillation (3) Peripheral vascular disease of lower extremity: (4) Esophagitis: (5) Gastritis: (6) Sepsis: Qualifiers: Acute respiratory failure type: unspecified Sepsis acute organ dysfunction status: with acute organ dysfunction Sepsis type: sepsis due to unspecified organism Severe sepsis acute organ dysfunction type: acute respiratory failure Severe sepsis shock status: without septic shock Qualified Code(s): A41.9 - Sepsis, unspecified organism; R65.20 - Severe sepsis without septic shock; J96.00 - Acute respiratory failure, unspecified whether with hypoxia or hypercapnia (7) Pneumonia: Qualifiers: Laterality: bilateral Lung location: lower lobe of lung Pneumonia type: due to unspecified organism Qualified Code(s): J18.9 - Pneumonia, unspecified organism Plan New onset A-fib Rule out thromboembolic phenomenon Start therapeutic Lovenox Start amiodarone drip along with Cardizem [id number] score5 Will request echo Clinically patient does not look fluid overloaded Rule out PE, will also request venous Doppler Sepsis related to pneumonia patient has received septic bolus, start ceftriaxone and doxycycline Full code Will do cardiac diet Hold clonidine Active smoker Patient never had low-dose CT for cancer screening Attestations 2 Medical Necessity Statement*: More than 2 midnights anticipated Diagnoses Hypertension I10 Atrial fibrillation I48.91 Atrial fibrillation type: unspecified Peripheral vascular disease of lower extremity I73.9 Esophagitis K20.90 Gastritis K29.70 Sepsis A41.9; R65.20; J96.00 Acute respiratory failure type: unspecified Sepsis acute organ dysfunction status: with acute organ dysfunction Sepsis type: sepsis due to unspecified organism Severe sepsis acute organ dysfunction type: acute respiratory failure Severe sepsis shock status: without septic shock Pneumonia J18.9 Laterality: bilateral Lung location: lower lobe of lung Pneumonia type: due to unspecified organism
[2023-06-16 14:25] LABS: Influenza A by IFA negative (Negative); Influenza B by IFA negative (Negative); SARS Covid-2 Antigen negative (Negative)
[2023-06-16] MEDS: enoxaparin 100 mg/mL Syringe SUBCUT ×2 (14:32→22:11)
[2023-06-16 14:52] LABS: D Dimer 1.45 ug/mLFEU (0-0.59)
[2023-06-16 14:57] LABS: Troponin(5th) Baseline 35 ng/L (0-15)
--- NOTE | 2023-06-16 15:09 | CTR_ITS ---
PROCEDURE INFORMATION: Exam: CTA Chest With Contrast Exam date and time: 06/16/2023 3:39 PM Age: 77 years old Clinical indication: Shortness of breath; Additional info: Afib TECHNIQUE: Imaging protocol: Computed tomographic angiography of the chest with contrast. Exam focused on the arteries. 3D rendering (Not supervised by radiologist): MIP and/or 3D reconstructed images were created by the technologist. Radiation optimization: All CT scans at this facility use at least one of these dose optimization techniques: automated exposure control; mA and/or kV adjustment per patient size (includes targeted exams where dose is matched to clinical indication); or iterative reconstruction. Contrast material: OMNI 350; Contrast volume: 72 ml; Contrast route: INTRAVENOUS (IV); COMPARISON: [place] [id number] 11/02/2021 11:33 AM RADIATION DOSE METRICS: Total DLP (mGy-cm): 557.6 FINDINGS: Pulmonary arteries: Adequate visualization of the pulmonary arteries to the subsegmental level. No pulmonary embolism. Aorta: Ascending aorta is normal in caliber. Moderate calcified and noncalcified aortic plaques. Thyroid: 1.2 centimeters right thyroid nodule. Lungs: Bilateral lung lobes are clear. No consolidations, or suspicious nodules. Pleural spaces: Small right-sided pleural effusion. Heart: Calcifications of the mitral annulus and aortic valve. Coronary arteries: Marked coronary marked Lymph nodes: Left perihilar, and subcarinal calcified lymph nodes, likely sequela of prior granulomatous exposure. Subcarinal enlarged lymph node measuring up to 1 centimeter. Prominent right paratracheal lymph node measuring up to 0.9 centimeters Bones/joints: Mild compression deformity of T12. Multilevel Schmorl's nodes. No acute fracture. Soft tissues: Unremarkable. CT/CT angio chest PE protcl [id number] IMPRESSION: No pulmonary embolism. Mediastinal lymphadenopathy. COMMENTS: Consistent with the [employer]'s Incidental Findings Committee white paper (J Am Wild Radiol 2015): In patients aged 35 years and older with an incidental thyroid nodule equal to or greater than 1.[address], MRI or extrathyroidal US, further evaluation with dedicated thyroid US is recommended for patients with normal life expectancy and without comorbidities. For smaller nodules without suspicious features, no further evaluation or follow up is recommended.
[2023-06-16 15:39] LABS: Reflex Lactate Order REFLEX LACTIC ORDERD
[2023-06-16] MEDS: iohexol 350 mg/mL 500 mL Btl (per mL) IV (15:40)
[2023-06-16] MEDS: amiodarone 150 MG/100 ML PREMIX 400 MG IV (15:52)
--- NOTE | 2023-06-16 15:59 | ECG_ITS ---
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 Measurements Intervals [place] Rate: 126 P: 0 SC: 0 QRS: 133 QRSD: 139 T: 39 QT: 324 QTc: 471 Interpretive Statements ATRIAL FIBRILLATION WITH RAPID VENTRICULAR RESPONSE INDETERMINATE AXIS RIGHT BUNDLE BRANCH BLOCK [120+ ms QRS DURATION, UPRIGHT V1, 40+ ms S IN I/aVL/V4/V5/V6] Compared to ECG 06/16/2023 13:35:45 Indeterminate axis now present Right-axis deviation no longer present Electronically Signed On 06-17-2023 8:39:26 BARREL PLATER by Ethan Dozier M.D. [email or web address] [id number]
[2023-06-16 16:46] LABS: Lactic Acid level (Lactate) 1.5 mmol/L (0.5-2.2)
[2023-06-16 16:48] LABS: Estmated Average Glucose 120; Hemoglobin A1C 5.8 % (4.0-6.0)
[2023-06-16 16:49] LABS: Thyroid Stimulating Hormone 0.87 uIU/mL (0.27-4.20)
--- NOTE | 2023-06-16 16:58 | CTR_ITS ---
PROCEDURE INFORMATION: Exam: CT Abdomen And Pelvis Without Contrast Exam date and time: 06/17/2023 3:39 AM Age: 77 years old Clinical indication: Bloating; Abdominal pain; Generalized; Patient HX: Pain with abd distention. Patient very SOB and lethargic. Unable to follow breathing instructions. Repeated with both scans submitted. ; Additional info: Ascites TECHNIQUE: Imaging protocol: Computed tomography of the abdomen and pelvis without contrast. Radiation optimization: All CT scans at this facility use at least one of these dose optimization techniques: automated exposure control; mA and/or kV adjustment per patient size (includes targeted exams where dose is matched to clinical indication); or iterative reconstruction. COMPARISON: [place] [id number] 11/02/2021 11:33 AM RADIATION DOSE METRICS: Total DLP (mGy-cm): 1342.02 FINDINGS: Pleural spaces: Small right pleural effusion with adjacent atelectasis noted. No pneumothorax. Heart: Normal heart size. Coronary atherosclerotic calcifications seen. No pericardial effusion. Liver: Normal. No mass. Gallbladder and bile ducts: Normal. No calcified stones. No ductal dilation. Pancreas: Normal. No ductal dilation. Spleen: Normal. No splenomegaly. Adrenal glands: Normal. No mass. Kidneys and ureters: 0.6 cm nonobstructing stone noted in the left kidney. Bilateral renal vascular calcifications seen. No hydronephrosis. There is nonspecific mild stranding of the perirenal fat bilaterally. Stomach and bowel: There are few diverticuli in the ascending colon, in association with wall thickening and mild stranding of the adjacent fat, suggestive of acute diverticulitis. No evidence of free air or fluid collection to suggest perforation. Appendix: No evidence of appendicitis. Intraperitoneal space: See Stomach and bowel finding. Vasculature: No aortic aneurysm. No aortic dissection. Mild diffuse atherosclerotic disease is present. Lymph nodes: Unremarkable. No enlarged lymph nodes. Urinary bladder: The urinary bladder is decompressed with a Waller catheter in place. Reproductive: The prostate is enlarged. Bones/joints: Degenerative changes of the spine seen. Chronic mild loss of height of T12 noted. Small bone island noted in the right iliac bone. Soft tissues: Unremarkable. CT/CT abdomen pelvis wo con [id number] IMPRESSION: 1. Imaging findings suggestive of ascending colon diverticulitis. 2. Small right pleural effusion with adjacent atelectasis.
[2023-06-16] MEDS: metoprolol tartrate 50 mg Tablet 100 MG PO (17:28)
[2023-06-16] MEDS: FUROsemide 10 mg/mL SDV 4mL 40 MG IVP (17:28)
[2023-06-16] MEDS: doxycycline 100 mg Tablet PO (17:28)
--- NOTE | 2023-06-16 17:43 | PC.NURSE ---
IVF from ER has not been given per order from Dr Arellano to discontinue it.
[2023-06-16 18:29] LABS: Amphetamines Screen Urine Negative (Negative); Barbiturates Screen Urine Negative (Negative); Benzodiazepines Screen Urine Negative (Negative); Cocaine Screen Urine Negative (Negative); Opiate Screen Urine Negative (Negative); PCP Screen Urine Negative (Negative); THC Screen Urine Negative (Negative)
[2023-06-16 20:51] LABS: Troponin 5 6HR 49.01 ng/L (0-15)
[2023-06-16 20:53] LABS: Troponin 5 6HR Delta 14.01 ng/L (0-12)
--- NOTE | 2023-06-16 21:21 | ECG_ITS ---
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 Measurements Intervals [place] Rate: 114 P: 0 NC: 0 QRS: 166 QRSD: 146 T: 51 QT: 353 QTc: 487 Interpretive Statements ATRIAL FIBRILLATION WITH RAPID VENTRICULAR RESPONSE RIGHT AXIS DEVIATION [QRS AXIS > 100] RIGHT BUNDLE BRANCH BLOCK [120+ ms QRS DURATION, UPRIGHT V1, 40+ ms S IN I/aVL/V4/V5/V6] POSSIBLE SEPTAL MYOCARDIAL INFARCTION , OF INDETERMINATE AGE [30 ms Q WAVE IN V1/V2] Compared to ECG 06/16/2023 15:59:12 Right-axis deviation now present Myocardial infarct finding now present Indeterminate axis no longer present Electronically Signed On 06-17-2023 8:36:22 TILT WALL SUPERVISOR by Ethan Dozier M.D. [id number]
[2023-06-16] MEDS: metoprolol tartrate 1 mg/1 mL SDV 5 mL 5 MG IVP (22:08)
[2023-06-16] MEDS: LORazepam 2 mg/mL INJ 1 mL 1 MG IVP (23:39)
[2023-06-17] VITALS (122 sets, daily range): BP systolic 101–203; BP diastolic 66–135; PULSE 72–136; RESP 20–40; TEMP 36.9–37.4; O2SAT 92–100
[2023-06-17] MEDS: dilTIAZem 100 MG in sodium chloride 0.9% (add-van) 100 ML IV (00:35)
--- NOTE | 2023-06-17 01:24 | XRR_ITS ---
PROCEDURE INFORMATION: Exam: XR Chest Exam date and time: 06/17/2023 1:29 AM Age: 77 years old Clinical indication: Shortness of breath; Patient HX: Worsening SOB. TECHNIQUE: Imaging protocol: Radiologic exam of the chest. Views: 1 view. COMPARISON: CT angio chest PE protcl [id number] 06/16/2023 3:39 PM FINDINGS: Lungs: There is a new patchy airspace opacity in the right lower lobe, consistent with pneumonia. Pleural spaces: Unremarkable. No pleural effusion. No pneumothorax. Heart/Mediastinum: Stable cardiomediastinal silhouette. Bones/joints: Unremarkable. XR/XR chest 1V portable [id number] IMPRESSION: Imaging findings of right lower lobe pneumonia.
[2023-06-17] MEDS: FUROsemide 10 mg/mL SDV 4mL 40 MG IVP (01:57)
[2023-06-17] MEDS: levalbuterol 1.25 mg/3 mL Neb INHALATION (02:10)
[2023-06-17] MEDS: LORazepam 2 mg/mL INJ 1 mL 1 MG IV (02:46)
[2023-06-17 03:50] LABS: Basophils % 0.2 %; Eosinophils % 0.1 %; Hematocrit 43.1 % (37-53); Lymphocytes # 2.1 10^3/uL (0.8-4.8); Lymphocytes % 10.6 %; Mean Corpuscular HGB Conc 32.3 g/dL (30-55); Mean Corpuscular Volume 93.1 fl (82-101); Mean Platelet Volume 10.9 fL (7.4-10.4); Monocytes # 1.7 10^3/uL (0.2-0.9); Monocytes % 8.2 %; Neutrophils # 16.07 10^3/uL (1.8-7.7); Neutrophils % 80.3 %; Nucleated Red Blood Cells % 0 %; Platelet Count 399 10^3/cmm (157-399); Red Blood Count 4.63 10^6/uL (3.85-5.65); Red Cell Distribution Width 13.5 % (12.1-15.1); White Blood Count 20.02 10^3/uL (3.29-11.43)
[2023-06-17 04:09] LABS: Anion Gap 16.8 (5-19); Blood Urea Nitrogen 12 mg/dL (8-23); C Reactive Protein 13.6 mg/L (0.0-4.9); Calcium 9.1 mg/dL (8.5-10.5); Carbon Dioxide 25 mmol/L (22-29); Chloride 102 mmol/L (98-107); Glucose 138 mg/dL (65-115); Magnesium 1.9 mg/dL (1.7-2.3); Osmolality Calculated 292 mOsm/kg (285-295); Potassium 3.8 mmol/L (3.5-5.1); Sodium 140 mmol/L (136-145)
[2023-06-17 05:04] LABS: ABG PCO2 38.9 mmHg (35-45); ABG PH Result 7.42 (7.35-7.45); Alveolar-Arterial Oxygen Gradi 9.4 mmHg (5-10); Arterial Blood Gas Hematocrit 43.9 % (42-52); Blood Gas Allen Test Pos; Blood Gas Sample Site Radial, right; Blood Gas Sample Type Arterial; Carboxyhemoglobin 0.7 %THgb (0.4-20.1); HCO3 ABG 25.4 mmol/L (22-26); HGB O2 Sat 95.1 % (95-100); Ionized Calcium Level - ABG 1.2 mmol/L (1.1-1.4); Methemoglobin 0.4 % (0.4-1.5); Oxygen Device NC; Oxygen Saturation ABG 96.2; PO2 ABG 78.1 mmHg (80.0-100.0); PO2 FiO2 Ratio Arterial Blood 0; Potassium Level - ABG 3.8 mmol/L (3.5-5.0); Total Hemoglobin 14.3 g/dL (14-18)
[2023-06-17] MEDS: piperacillin-tazobactam 3.375 GM in sodium chloride 0.9% (plus) 50 ML IV ×3 (05:47→21:23)
--- NOTE | 2023-06-17 06:00 | USCV_ITS ---
Pati Telles Age: 77 Gender: M : 1945 Exam Date: 06/17/2023 20:38 Ordering Phys: David Arellano MD Technologist: GLENNY Exam Location: [facility] [place] Indication: afib. history of COPD. No history of cardiac intervention per patient. BP: 175 / 88 HR: 91 Rhythm: Mostly AFIB with some strings of sinus rhythm Technical Quality: Adequate MEASUREMENTS (Male / Female) Normal Values 2D ECHO LV Diastolic Diameter PLAX 5.2 cm 4.2 - 5.9 / 3.9 - 5.3 cm LV Systolic Diameter PLAX 3.3 cm IVS Diastolic Thickness 1.4 cm 0.6 - 1.0 / 0.6 - 0.9 cm IVS Systolic Thickness 2.1 cm LVPW Diastolic Thickness 1.3 cm 0.6 - 1.0 / 0.6 - 0.9 cm LVPW Systolic Thickness 1.5 cm LVOT Diameter 2.1 cm LV Ejection Fraction 2D Teich 66.2 % LV Ejection Fraction MOD 2C 69.5 % LV Ejection Fraction 2C AL 69.0 % LA Diameter 5.9 cm LA Width 3.8 cm LA Height 6.5 cm RA Width 3.2 cm RA Height 4.6 cm Aorta at Sinotubular Diameter 3.3 cm M-MODE Aortic Annulus Diameter 3.3 cm LA Ao Ratio MM 1.8 MV E Point Septal Separation 0.7 cm DOPPLER AV Peak Velocity 119.0 cm/s LVOT Peak Velocity 106.0 cm/s AV Area Cont Eq vti 3.1 cm squared AV Area Cont Eq pk 3.2 cm squared MV Peak Velocity 121.0 cm/s MV Area PHT 2.1 cm squared Mitral E to A Ratio 1.1 MV E' Velocity 54.0 cm/s Mitral E to MV E' Ratio 9.5 Mitral E to LV E' Lateral Ratio 7.4 Mitral E to LV E' Septal Ratio 13.4 TR Peak Velocity 234.0 cm/s TR Peak Gradient 21.9 mmHg Right Atrial Pressure 10.0 mmHg Pulmonary Artery Systolic Pressu 31.9 mmHg PV Peak Velocity 217.0 cm/s RV Acceleration Time 0.1 s RV Ejection Time 0.4 s RV AcT/ET 0.3 FINDINGS Left Ventricle Left ventricle is normal in size. LV systolic function is normal with EF of 60 to 65%. No regional wall motion abnormalities are seen. Right Ventricle Normal in size and function Right Atrium Normal in size Left Atrium Dilated Mitral Valve Severe mitral annular calcification. Trace mitral regurgitation. Aortic Valve Aortic valve is thickened. No significant stenosis or regurgitation. Tricuspid Valve Mild tricuspid regurgitation. Pulmonary artery systolic pressure is normal. Pulmonic Valve Not well-visualized Pericardium Normal Aorta Normal in size IVC Not well visualized CONCLUSIONS LV systolic function is normal with EF of 60 to 65%. Left atrial dilation. Trace mitral regurgitation. Mild tricuspid regurgitation. No comparison studies are available. Ethan Dozier MD (Electronically Signed) Final Date: 18 June 2023 09:26 S
--- NOTE | 2023-06-17 06:00 | USCV_ITS ---
Pati Telles Age: 77 Gender: M : 1945 Exam Date: 06/17/2023 08:00 Ordering Phys: David Arellano MD Technologist: Amrit Salomon Exam Location: [facility] [place] Indication: leg pain PROCEDURES: The venous duplex Doppler examination of both lower extremities was performed in the standard fashion. The following venous structures were evaluated: common femoral vein, profunda vein, proximal portion of the greater saphenous vein, superficial femoral vein, and the popliteal vein. In addition, the posterior tibial and peroneal trunk were evaluated. FINDINGS: Normal 2-D Doppler and augmentation and compressibility throughout the lower extremity venous structures. Additional imaging through the proximal calf veins also reveals no thrombus. Limited evaluation of the greater saphenous vein is patent with no thrombus. CONCLUSIONS No DVT bilateral lower extremities. Dr. Tamar Preciado DO (Electronically Signed) Final Date: 17 June 2023 14:34 S
--- NOTE | 2023-06-17 07:28 | PC.NURSE ---
late entry, patient has been very sob, restless, shaky, and tachycardic, Dr Damon updated multiple times throughout the night of patient's condition, cardizem gtt ordered in addition to amidarone gtt, xopenex treatment given for increasing wheezing, 40 mg IV lasix given, colorado catheter placed, 1000 ml output overnight, cxr and abd ct obtained, abg ordered, patient moved to [facility] to be closer to nurses station, continue to monitor
[2023-06-17] MEDS: tamsulosin 0.4 mg Capsule PO (07:54)
[2023-06-17] MEDS: sennosides-docusate Tablet 1 TAB PO (07:55)
[2023-06-17] MEDS: losartan 50 mg Tablet PO (07:55)
[2023-06-17] MEDS: doxycycline 100 mg Tablet PO (07:55)
[2023-06-17] MEDS: finasteride 5 mg Tablet PO (07:55)
[2023-06-17] MEDS: metoprolol tartrate 50 mg Tablet 100 MG PO (07:55)
--- NOTE | 2023-06-17 08:43 | CTR_ITS ---
PROCEDURE INFORMATION: Exam: CT Head Without Contrast Exam date and time: 06/17/2023 8:58 AM Age: 77 years old Clinical indication: Altered mental status/memory loss; Additional info: AMS TECHNIQUE: Imaging protocol: Computed tomography of the head without contrast. Radiation optimization: All CT scans at this facility use at least one of these dose optimization techniques: automated exposure control; mA and/or kV adjustment per patient size (includes targeted exams where dose is matched to clinical indication); or iterative reconstruction. COMPARISON: No relevant prior studies available. RADIATION DOSE METRICS: Total DLP (mGy-cm): 1080.64 FINDINGS: Brain: Chronic lacunar infarction left mid paraventricular ann radiata white matter/upper putamen. Moderate hypoattenuating foci are noted in the posterior superior periatrial and anterior lateral ventricular periventricular white matter bilaterally. No intracranial hemorrhage. No mass or acute cortical infarction identified. Ventricles: Prominence of the ventricular system and subarachnoid spaces is consistent with the patient's age of 77 years. Paranasal sinuses: Intraluminal cysts/polyps are present in the upper right maxillary sinus. Mastoid air cells: Visualized mastoid air cells are well aerated. Orbital cavities: Bilateral prior cataract surgery with lens replacements. Bones/joints: No acute abnormality. No acute fracture. Soft tissues: Unremarkable. Vasculature: Atherosclerotic calcifications are present involving the carotid artery siphons bilaterally. CT/CT head wo con* [id number] IMPRESSION: 1. 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 2. Age appropriate supratentorial and infratentorial atrophy. 3. Moderate chronic white matter microvascular ischemic disease. 4. No acute intracranial abnormality identified.
--- NOTE | 2023-06-17 08:44 | P.CONIM_ITS ---
Providers/Reason For Consult 2 Consulting Physician/Specialty*: Ethan Dozier MD/ Cardiology Reason for Consult*: Atrial fibrillation with RVR Requesting Physician: Dr Arellano Attending Physician: David Arellano MD Primary Care Provider: Caterina Barrett DO History of Present Illness History of Present Illness Pati Telles is a 77 year old male with no significant prior cardiac history has presented to hospital with shortness of breath, cough and palpitations. He was found to have an A-fib with RVR. Has underlying pneumonia, diverticulosis and possible sepsis. Patient is confused. Currently on Cardizem and amiodarone. Review of Systems 2 Const: Reports: chills, fatigue and malaise Eyes: Denies: change in vision ENMT: Denies: throat pain or hoarseness Card: Reports: palpitations, irregular heart rhythm and swelling of feet/ankles Resp: Reports: dyspnea GI: Denies: abdominal pain : Denies: flank pain Musc: Denies: neck pain Medications/Allergies Home Medications Medication Instructions Recorded Confirmed Last Taken Type budesonide-formoterol HFA 160 2 puff inhalation BID 11/02/21 06/16/23 06/15/23 History mcg-4.5 mcg/actuation aerosol inhaler (Symbicort) clonidine HCl 0.1 mg tablet 0.1 mg PO TID PRN Blood Pressure 11/02/21 06/16/23 Unknown History finasteride 5 mg tablet 5 mg PO DAILY 11/02/21 06/16/23 06/15/23 History gabapentin 300 mg capsule 300 mg PO TID 11/02/21 06/16/23 06/15/23 History metoprolol tartrate 100 mg tablet 100 mg PO BID 11/02/21 06/16/23 06/16/23 History simvastatin 40 mg tablet 40 mg PO DAILY 11/02/21 06/16/23 06/15/23 History tamsulosin 0.4 mg capsule 0.4 mg PO DAILY 11/02/21 06/16/23 06/15/23 History tramadol 50 mg tablet 50 mg PO QID PRN Pain 11/02/21 06/16/23 06/16/23 History albuterol sulfate 2.5 mg/3 mL 2.5 mg inhalation Q6H PRN 06/16/23 06/16/23 06/16/23 History (0.083 %) solution for nebulization Shortness Of Breath Or Wheezing Allergies Allergy/AdvReac Type Severity Reaction Status Date / Time Alpha-Gal Allergy Severe ALGY-Rash Verified 06/16/23 18:08 (Xssustfde-Ujiov-2,3-Gala lisinopril Allergy ADR-Faintin Verified 06/16/23 13:04 g Current Medications Generic Name Dose Route Start Last Admin Trade Name Freq PRN Reason Stop Dose Admin Doxycycline Monohydrate 100 mg 06/16/23 18:00 06/17/23 07:55 Doxycycline 100 Mg Tablet PO 100 mg BID GAURAV Administration Protocol Enoxaparin Sodium 100 mg 06/16/23 23:00 06/16/23 22:11 Enoxaparin 100 Mg/Ml Syringe 1 mg/kg (100 mg) 100 mg SUBCUT Administration Q12H [facility] Finasteride 5 mg 06/17/23 09:00 06/17/23 07:55 Finasteride 5 Mg Tablet PO 5 mg DAILY GAURAV Administration Amiodarone HCl/Dextrose 360 mg in 200 mls @ 0 mls/hr 06/16/23 15:22 06/16/23 22:10 Nexterone IV 0.5 mg/min .Q0M GAURAV 16.67 mls/hr Titration Protocol Per Protocol Diltiazem HCl 100 mg/ Sodium 100 mls @ 0 mls/hr 06/17/23 00:30 06/17/23 02:11 Chloride IV 12.5 mg/hr .Q0M GAURAV 12.5 mls/hr Titration Protocol Per Protocol Piperacillin Sod/Tazobactam 50 mls @ 12.5 mls/hr 06/17/23 05:15 06/17/23 05:47 Sod 3.375 gm/ Sodium Chloride IV 12.5 mls/hr Q8H GAURAV Administration Losartan Potassium 50 mg 06/17/23 09:00 06/17/23 07:55 Losartan 50 Mg Tablet PO 50 mg DAILY GAURAV Administration Metoprolol Tartrate 100 mg 06/16/23 18:00 06/17/23 07:55 Metoprolol Tartrate 50 Mg Tablet PO 100 mg BID GAURAV Administration Senna/Docusate Sodium 1 tab 06/17/23 09:00 06/17/23 07:55 Sennosides-Docusate Tablet PO 1 tab DAILY GAURAV Administration Tamsulosin HCl 0.4 mg 06/17/23 09:00 06/17/23 07:54 Tamsulosin 0.4 Mg Capsule PO 0.4 mg DAILY GAURAV Administration PFSH Acute 2 PFSH: Medical History History of stroke Hyperlipidemia Hypertension Surgical History H/O right knee surgery History of ankle surgery History of esophagogastroduodenoscopy (EGD) No significant past surgical history Family History Father CAD (coronary artery disease) Diabetes Mother CAD (coronary artery disease) Sister Cancer Denies family history of Hypertension Social History Smoking and tobacco/nicotine status: former use of tobacco/nicotine Quit status (tobacco/nicotine): has quit using Year quit tobacco: 2022 Former quit date comment: smoked up to 2 pack per day x 61 years Alcohol intake: former Year of sobriety/quit date alcohol: 2013 Substance/Drug Use: never Household members: spouse Housing: House Marital status: Number of children: 4 Pets and animals: No Vitals/I&O/Wt Last Vital Signs Temp 99.4 F 06/17/23 08:00 Pulse 126 H 06/17/23 08:27 Resp 30 H 06/17/23 08:27 BP 140/93 06/17/23 08:00 Pulse Ox 95 06/17/23 08:27 O2 Del Method Nasal Cannula 06/17/23 08:27 O2 Flow Rate 2 06/17/23 08:27 06/16/23 06/17/23 06/17/23 22:59 06:59 14:59 Intake Total 1441.162 / 1445.537 13.208 / 1458.745 Output Total 880 / 880 1000 / 1880 0 / 0 Balance 561.162 / 565.537 -986.792 / -421.255 0 / 0 Weight last 48 hrs Weight 201 lb Weight 210 lb Weight 210 lb Physical Exam 2 Narrative: GENERAL: Patient is alert, awake and oriented x3. [] NECK: No jugular vein distension. [] HEENT: No cyanosis. No icterus. No pallor. [] HEART: Regular S1 and S2. No murmur, rub or gallop. [] LUNGS: Clear to auscultate bilaterally. [] CENTRAL NERVOUS SYSTEM: Grossly nonfocal. [] EXTREMITIES: Lower extremities with 1+ edema bilaterally. Urinary Catheter Management: Waller: Cath Placed During This Visit: yes Urinary Catheter Date of Insertion: 06/17/23 Urinary Catheter Time of Insertion: 03:00 Data 06/18/23 05:08 06/18/23 05:08 Micro: Microbiology 06/16/23 14:19 Blood Culture - Preliminary Blood SPECIMEN COLLECTED 06/16/23 14:10 Blood Culture - Preliminary Blood SPECIMEN COLLECTED A&P Assessment and plan (1) Atrial fibrillation: Qualifiers: Atrial fibrillation type: unspecified Qualified Code(s): I48.91 - Unspecified atrial fibrillation (2) Hyperlipidemia: (3) Hypertension: (4) Peripheral vascular disease of lower extremity: (5) Sepsis: Qualifiers: Acute respiratory failure type: unspecified Sepsis acute organ dysfunction status: with acute organ dysfunction Sepsis type: sepsis due to unspecified organism Severe sepsis acute organ dysfunction type: acute respiratory failure Severe sepsis shock status: without septic shock Qualified Code(s): A41.9 - Sepsis, unspecified organism; R65.20 - Severe sepsis without septic shock; J96.00 - Acute respiratory failure, unspecified whether with hypoxia or hypercapnia (6) Pneumonia: Qualifiers: Laterality: bilateral Lung location: lower lobe of lung Pneumonia type: due to unspecified organism Qualified Code(s): J18.9 - Pneumonia, unspecified organism (7) Diverticulitis: Plan Patient has atrial fibrillation with RVR. Triggered by underlying sepsis, pneumonia and diverticulitis. Continue amiodarone. Continue Cardizem. Will hold off on cardioversion at this time as he is hemodynamically stable. Also has noted possible hematuria. If cardioverted, cannot stop anticoagulation for 1 month. Ordered echocardiogram. Telemonitoring. Thank you for involving us with care of this patient. Will continue to follow. Please call with questions. Consult Attestations 2 Medical Necessity Statement: Care expected to cross 2 midnights. Coding Level of Care Code Acute Code for [facility] Diagnoses Atrial fibrillation I48.91 Atrial fibrillation type: unspecified Hyperlipidemia E78.5 Hypertension I10 Peripheral vascular disease of lower extremity I73.9 Sepsis A41.9; R65.20; J96.00 Acute respiratory failure type: unspecified Sepsis acute organ dysfunction status: with acute organ dysfunction Sepsis type: sepsis due to unspecified organism Severe sepsis acute organ dysfunction type: acute respiratory failure Severe sepsis shock status: without septic shock Pneumonia J18.9 Laterality: bilateral Lung location: lower lobe of lung Pneumonia type: due to unspecified organism Diverticulitis K57.92
--- NOTE | 2023-06-17 08:57 | PC.NURSE ---
Patient is being transferred to ICU. Report called to COLTON Austin. Patient will go to CT and then be transported to ICU 10.
--- NOTE | 2023-06-17 11:45 | P.PN_ITS ---
Subjective 2 Subjective: Leukocytosis worsened Patient has ascending colon diverticulitis Asked Dr. Dozier to see if we can cardiovert for his symptomatic A-fib Moved to ICU patient was more lethargic and fatigued this morning ABG did did not show hypercapnia D-dimer is 1.4 No PE Venous Doppler studies pending Echo is pending Currently on amiodarone and Cardizem He does have hematuria most likely he has tried to pull his Waller catheter causing traumatic hematuria Vitals/I&O/Wt Last Vital Signs Temp 99.4 F 06/17/23 08:00 Pulse 74 06/17/23 10:09 Resp 30 H 06/17/23 08:27 BP 140/93 06/17/23 08:00 Pulse Ox 96 06/17/23 10:09 O2 Del Method Nasal Cannula 06/17/23 08:27 O2 Flow Rate 2 06/17/23 08:27 FiO2 30 06/17/23 10:17 06/16/23 06/17/23 06/17/23 22:59 06:59 14:59 Intake Total 1441.162 / 1445.537 13.208 / 1458.745 50 / 50 Output Total 880 / 880 1000 / 1880 0 / 0 Balance 561.162 / 565.537 -986.792 / -421.255 50 / 50 Weight last 48 hrs Weight 91.172 kg Weight 95.254 kg Weight 95.254 kg Physical Exam 2 Narrative: Patient is fatigued and lethargic Will be redirectable Hemodynamically stable Currently on 2 L A-fib RVR heart rate in the 120s On Cardizem and amiodarone Nonfocal neuroexam Abdomen distended nontender Urinary Catheter Management: Waller: Cath Placed During This Visit: yes Urinary Catheter Date of Insertion: 06/17/23 Urinary Catheter Time of Insertion: 03:00 Data 06/17/23 03:22 06/17/23 03:22 Micro: Microbiology 06/16/23 14:19 Blood Culture - Preliminary Blood SPECIMEN COLLECTED 06/16/23 14:10 Blood Culture - Preliminary Blood SPECIMEN COLLECTED A&P Assessment and plan (1) Hypertension: (2) Atrial fibrillation: Qualifiers: Atrial fibrillation type: unspecified Qualified Code(s): I48.91 - Unspecified atrial fibrillation (3) Sepsis: Qualifiers: Acute respiratory failure type: unspecified Sepsis acute organ dysfunction status: with acute organ dysfunction Sepsis type: sepsis due to unspecified organism Severe sepsis acute organ dysfunction type: acute respiratory failure Severe sepsis shock status: without septic shock Qualified Code(s): A41.9 - Sepsis, unspecified organism; R65.20 - Severe sepsis without septic shock; J96.00 - Acute respiratory failure, unspecified whether with hypoxia or hypercapnia (4) Diverticulitis: (5) Pneumonia: Qualifiers: Laterality: bilateral Lung location: lower lobe of lung Pneumonia type: due to unspecified organism Qualified Code(s): J18.9 - Pneumonia, unspecified organism Plan Sepsis related to diverticulitis Pneumonia and ascending colon Diverticulitis Currently on antibiotics No signs of PE Venous Doppler and echo pending Transfer to ICU Patient is on 2 L Abdominal distention without active tenderness COVID antigen negative Afebrile this morning Continue current amiodarone and Cardizem regimen Patient has received Lovenox I have not seen any signs of skin rash, hypertension, anaphylaxis Full code Clear liquid diet Monitor in ICU Spoke with Dr. Dozier He may need transesophageal echo and cardioversion Attestations 2 Medical Necessity Statement*: Continue medical management Diagnoses Hypertension I10 Atrial fibrillation I48.91 Atrial fibrillation type: unspecified Sepsis A41.9; R65.20; J96.00 Acute respiratory failure type: unspecified Sepsis acute organ dysfunction status: with acute organ dysfunction Sepsis type: sepsis due to unspecified organism Severe sepsis acute organ dysfunction type: acute respiratory failure Severe sepsis shock status: without septic shock Diverticulitis K57.92 Pneumonia J18.9 Laterality: bilateral Lung location: lower lobe of lung Pneumonia type: due to unspecified organism
[2023-06-17] MEDS: vancomycin 1,500 MG/300 ML PIGGYBACK 200 MG IV (12:56)
[2023-06-17] MEDS: enoxaparin 100 mg/mL Syringe SUBCUT (12:56)
--- NOTE | 2023-06-17 13:09 | PC.NURSE ---
manual irrigation of colorado with 60 ml saline.
--- NOTE | 2023-06-17 14:11 | ECG_ITS ---
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 Measurements Intervals [place] Rate: 84 P: -85 FL: 195 QRS: 104 QRSD: 150 T: 31 QT: 443 QTc: 526 Interpretive Statements ECTOPIC ATRIAL RHYTHM INDETERMINATE AXIS RIGHT BUNDLE BRANCH BLOCK [120+ ms QRS DURATION, UPRIGHT V1, 40+ ms S IN I/aVL/V4/V5/V6] Compared to ECG 06/16/2023 21:25:34 Ectopic atrial rhythm now present Indeterminate axis now present Atrial fibrillation no longer present Right-axis deviation no longer present Myocardial infarct finding no longer present Electronically Signed On 06-17-2023 14:53:13 [employer] by Ethan Dozier M.D. [email or web address]
[2023-06-17] MEDS: TRAMadol 50 mg Tablet PO ×2 (14:43→20:43)
[2023-06-17] MEDS: amiodarone 200 mg Tablet 400 MG PO (17:09)
[2023-06-17] MEDS: dilTIAZem 60 mg Tablet PO ×2 (17:09→23:28)
[2023-06-17] MEDS: hyDRALAzine 20 mg/mL INJ 1 mL 5 MG IVP (18:27)
--- NOTE | 2023-06-17 23:20 | PC.NURSE ---
Physician Communication Patient's urine remaining dark red while 100 mg lovenox SUBQ due at 2300. Additionally, patient using accessory muscles to breathe with coarse crackles auscultated in patient's lungs. Furthermore, patient's blood pressure remaining elevated ranging from 171-203 systolic, 72-[address] Damon notified of findings and the following orders were received: to hold the 2300 dose of lovenox, perform a chest xray, and administer 0.1 mg clonidine PO once one. See MAR for details.
--- NOTE | 2023-06-17 23:23 | XRR_ITS ---
PROCEDURE INFORMATION: Exam: XR Chest Exam date and time: 06/17/2023 11:45 PM Age: 77 years old Clinical indication: Dyspnea; Additional info: SOB TECHNIQUE: Imaging protocol: Radiologic exam of the chest. Views: Portable semi upright AP chest x-ray, 1 view. COMPARISON: CR (CHEST, ) 06/17/2023 1:29 AM FINDINGS: Tubes, catheters and devices: Monitor leads project over the chest. Lungs: Improved lower lung zone and right basilar pulmonary edema versus pneumonia. Pleural spaces: No significant costophrenic angle blunting. No pneumothorax. Heart/Mediastinum: Heart size within normal limits given the portable AP technique. Bones/joints: No acute osseous abnormality. XR/XR chest 1V portable [id number] IMPRESSION: Improved lower lung zone and right basilar pulmonary edema versus pneumonia.
[2023-06-17] MEDS: cloNIDine 0.1 mg Tablet PO (23:28)
[2023-06-18] VITALS (106 sets, daily range): BP systolic 111–209; BP diastolic 69–144; PULSE 80–125; RESP 16–37; TEMP 36.4–37.4; O2SAT 93–99; BMI 27.1
[2023-06-18] MEDS: lanolin oint 7 gm 1 APPLIC TOPICAL (02:21)
--- NOTE | 2023-06-18 04:20 | PC.NURSE ---
Blood Pressure Patient's blood pressure remaining elevated, currently 179/105. Dr. Damon contacted and order received for 0.1 mg clonidine PO once one. See MAR for details.
[2023-06-18] MEDS: piperacillin-tazobactam 3.375 GM in sodium chloride 0.9% (plus) 50 ML IV ×3 (04:50→20:07)
[2023-06-18] MEDS: cloNIDine 0.1 mg Tablet PO (04:51)
[2023-06-18 05:18] LABS: Basophils # 0.1 10^3/uL (0.0-0.1); Basophils % 0.2 %; Eosinophils % 0.1 %; Hematocrit 39.4 % (37-53); Lymphocytes # 2.1 10^3/uL (0.8-4.8); Lymphocytes % 9.7 %; Mean Corpuscular HGB Conc 31.7 g/dL (30-55); Mean Corpuscular Hemoglobin 29.6 pg (27-33); Mean Corpuscular Volume 93.1 fl (82-101); Mean Platelet Volume 10.2 fL (7.4-10.4); Monocytes % 9.1 %; Neutrophils # 17.21 10^3/uL (1.8-7.7); Neutrophils % 80.3 %; Nucleated Red Blood Cells % 0 %; Platelet Count 379 10^3/cmm (157-399); Red Blood Count 4.23 10^6/uL (3.85-5.65); Red Cell Distribution Width 13.9 % (12.1-15.1); White Blood Count 21.45 10^3/uL (3.29-11.43)
[2023-06-18 05:47] LABS: Anion Gap 18.4 (5-19); Blood Urea Nitrogen 18 mg/dL (8-23); Calcium 9.1 mg/dL (8.5-10.5); Carbon Dioxide 25 mmol/L (22-29); Chloride 102 mmol/L (98-107); Glucose 152 mg/dL (65-115); Osmolality Calculated 299 mOsm/kg (285-295); Potassium 3.4 mmol/L (3.5-5.1); Sodium 142 mmol/L (136-145)
[2023-06-18] MEDS: dilTIAZem 60 mg Tablet PO ×3 (06:18→17:57)
[2023-06-18] MEDS: vancomycin 1,500 MG/300 ML PIGGYBACK 200 MG IV (06:18)
[2023-06-18] MEDS: amiodarone 200 mg Tablet 400 MG PO ×2 (08:52→17:57)
[2023-06-18] MEDS: losartan 50 mg Tablet PO (08:53)
[2023-06-18] MEDS: finasteride 5 mg Tablet PO (08:53)
[2023-06-18] MEDS: sennosides-docusate Tablet 1 TAB PO (08:54)
[2023-06-18] MEDS: tamsulosin 0.4 mg Capsule PO (08:55)
[2023-06-18] MEDS: ipratropium-albuterol 3 mL Neb INHALATION ×2 (09:02→13:16)
--- NOTE | 2023-06-18 10:52 | P.PN_ITS ---
Subjective 2 Subjective: Patient's heart rate is controlled. No chest pain. Vitals/I&O/Wt Last Vital Signs Temp 98.0 F 06/18/23 07:44 Pulse 93 06/18/23 09:17 Resp 20 H 06/18/23 09:15 BP 184/103 06/18/23 08:53 Pulse Ox 97 06/18/23 09:15 O2 Del Method BiPAP 06/18/23 09:15 O2 Flow Rate 2 06/17/23 08:27 FiO2 30 06/18/23 09:15 06/17/23 06/18/23 06/18/23 22:59 06:59 14:59 Intake Total 184.194 / 820.430 50 / 870.430 300 / 300 Output Total 415 / 815 325 / 1140 0 / 0 Balance -230.806 / 5.430 -275 / -269.570 300 / 300 Weight last 48 hrs Weight 200 lb 1.6 oz Weight 201 lb Weight 210 lb Weight 210 lb Physical Exam 2 Narrative: GENERAL: Patient is alert NECK: No jugular vein distension. [] HEENT: No cyanosis. No icterus. No pallor. [] HEART: Irregularly irregular LUNGS: Clear to auscultate bilaterally. [] CENTRAL NERVOUS SYSTEM: Grossly nonfocal. [] EXTREMITIES: Lower extremities with 1+ edema bilaterally. Urinary Catheter Management: Waller: Cath Placed During This Visit: yes Reason for Continuing Indwelling Catheter: Accurate Measurement of Urinary Output in Critically Ill Patients Urinary Catheter Date of Insertion: 06/17/23 Urinary Catheter Time of Insertion: 03:00 Data 06/19/23 03:42 06/19/23 03:42 Micro: Microbiology 06/16/23 14:19 Blood Culture - Preliminary Blood NEGATIVE TO DATE 06/16/23 14:10 Blood Culture - Preliminary Blood NEGATIVE TO DATE A&P Assessment and plan (1) Atrial fibrillation: Qualifiers: Atrial fibrillation type: unspecified Qualified Code(s): I48.91 - Unspecified atrial fibrillation (2) Hyperlipidemia: (3) Hypertension: (4) Peripheral vascular disease of lower extremity: (5) Sepsis: Qualifiers: Acute respiratory failure type: unspecified Sepsis acute organ dysfunction status: with acute organ dysfunction Sepsis type: sepsis due to unspecified organism Severe sepsis acute organ dysfunction type: acute respiratory failure Severe sepsis shock status: without septic shock Qualified Code(s): A41.9 - Sepsis, unspecified organism; R65.20 - Severe sepsis without septic shock; J96.00 - Acute respiratory failure, unspecified whether with hypoxia or hypercapnia (6) Pneumonia: Qualifiers: Laterality: bilateral Lung location: lower lobe of lung Pneumonia type: due to unspecified organism Qualified Code(s): J18.9 - Pneumonia, unspecified organism (7) Diverticulitis: Plan Heart rate controlled. Continue p.o. amiodarone and Cardizem. Can switch to extended release Cardizem tomorrow. Continue anticoagulation Echo shows normal LV systolic function Telemonitoring. Thank you for involving us with care of this patient. Will continue to follow. Please call with questions. Attestations 2 Medical Necessity Statement*: Care expected to cross 2 midnights. Coding Level of Care Code Acute Code for [facility] Diagnoses Atrial fibrillation I48.91 Atrial fibrillation type: unspecified Hyperlipidemia E78.5 Hypertension I10 Peripheral vascular disease of lower extremity I73.9 Sepsis A41.9; R65.20; J96.00 Acute respiratory failure type: unspecified Sepsis acute organ dysfunction status: with acute organ dysfunction Sepsis type: sepsis due to unspecified organism Severe sepsis acute organ dysfunction type: acute respiratory failure Severe sepsis shock status: without septic shock Pneumonia J18.9 Laterality: bilateral Lung location: lower lobe of lung Pneumonia type: due to unspecified organism Diverticulitis K57.92
--- NOTE | 2023-06-18 12:11 | P.PN_ITS ---
Subjective 2 Subjective: This morning white count has worsened Patient is sitting at the bedside eating breakfast Not complain active Garry pain Patient was asking what is wrong with him I did tell him that he has active diverticulitis with COPD exacerbation along heart failure His A-fib has improved currently heart rate is in 80s Currently on p.o. amiodarone along Cardizem Cardizem drip and amiodarone drip discontinued No plan for cardioversion patient's confusion has improved however very hard of hearing does have poor insight to his health Currently on broad-spectrum antibiotics No fever Patient was given his home dose of clonidine because of rebound hypertension Vitals/I&O/Wt Last Vital Signs Temp 98.0 F 06/18/23 07:44 Pulse 93 06/18/23 09:17 Resp 20 H 06/18/23 09:15 BP 184/103 06/18/23 08:53 Pulse Ox 97 06/18/23 09:15 O2 Del Method BiPAP 06/18/23 09:15 O2 Flow Rate 2 06/17/23 08:27 FiO2 30 06/18/23 09:15 06/17/23 06/18/23 06/18/23 22:59 06:59 14:59 Intake Total 184.194 / 820.430 50 / 870.430 300 / 300 Output Total 415 / 815 325 / 1140 0 / 0 Balance -230.806 / 5.430 -275 / -269.570 300 / 300 Weight last 48 hrs Weight 90.764 kg Weight 91.172 kg Weight 95.254 kg Weight 95.254 kg Physical Exam 2 Narrative: Sitting at the bedside Edema of extremities improving Signs of fluid load improving Eating breakfast Bilateral breath sounds with mild rhonchi Currently on 3 L nasal cannula Hypertensive Urinary Catheter Management: Waller: Cath Placed During This Visit: yes Reason for Continuing Indwelling Catheter: Accurate Measurement of Urinary Output in Critically Ill Patients Urinary Catheter Date of Insertion: 06/17/23 Urinary Catheter Time of Insertion: 03:00 Data 06/18/23 05:08 06/18/23 05:08 Micro: Microbiology 06/16/23 14:19 Blood Culture - Preliminary Blood NEGATIVE TO DATE 06/16/23 14:10 Blood Culture - Preliminary Blood NEGATIVE TO DATE A&P Assessment and plan (1) Hypertension: (2) Atrial fibrillation: Qualifiers: Atrial fibrillation type: unspecified Qualified Code(s): I48.91 - Unspecified atrial fibrillation (3) Peripheral vascular disease of lower extremity: (4) Diverticulitis: (5) Sepsis: Qualifiers: Acute respiratory failure type: unspecified Sepsis acute organ dysfunction status: with acute organ dysfunction Sepsis type: sepsis due to unspecified organism Severe sepsis acute organ dysfunction type: acute respiratory failure Severe sepsis shock status: without septic shock Qualified Code(s): A41.9 - Sepsis, unspecified organism; R65.20 - Severe sepsis without septic shock; J96.00 - Acute respiratory failure, unspecified whether with hypoxia or hypercapnia (6) Pneumonia: Qualifiers: Laterality: bilateral Lung location: lower lobe of lung Pneumonia type: due to unspecified organism Qualified Code(s): J18.9 - Pneumonia, unspecified organism Plan 77-year male who came in for shortness of breath, he was diagnosed with new onset A-fib he was transitioned to ICU because we noticed some confusion with worsening of leukocytosis with A-fib RVR He was put on amiodarone and Cardizem drip which we have turned off and currently he is on p.o. medications at this point in ICU His mentation is improved however leukocytosis still above 20,000 he is on broad-spectrum antibiotics New onset A-fib RVR Currently on p.o. regimen Amiodarone and Cardizem No plan for cardioversion Sepsis related to diverticulitis and pneumonia Currently on broad-spectrum antibiotics Metabolic encephalopathy related to sepsis: Improving Tachyarrhythmia related heart failure exacerbation: Continue diuresis Resistant hypertension I will request renal Doppler to rule out renal artery stenosis Patient takes clonidine at home he is experiencing rebound hypertension Clear liquid diet I will not advance diet until his white count improves he has ascending colon diverticulitis no sign of perforation I will repeat lactic acid by tomorrow He is not complain abdominal pain my suspicion on visit to ischemia is low at this point [id number] 5: Currently on therapeutic Lovenox Full code We may be able to transfer him by tomorrow if he is stable If ICU bed is needed he can be transferred to [facility] Attestations 2 Medical Necessity Statement*: Continue ICU management Diagnoses Hypertension I10 Atrial fibrillation I48.91 Atrial fibrillation type: unspecified Peripheral vascular disease of lower extremity I73.9 Diverticulitis K57.92 Sepsis A41.9; R65.20; J96.00 Acute respiratory failure type: unspecified Sepsis acute organ dysfunction status: with acute organ dysfunction Sepsis type: sepsis due to unspecified organism Severe sepsis acute organ dysfunction type: acute respiratory failure Severe sepsis shock status: without septic shock Pneumonia J18.9 Laterality: bilateral Lung location: lower lobe of lung Pneumonia type: due to unspecified organism
--- NOTE | 2023-06-18 12:15 | USCV_ITS ---
Pati Telles Age: 77 Gender: M : 1945 Exam Date: 06/18/2023 21:20 Ordering Phys: David Arellano MD Technologist: GLENNY [place]am [place] [facility] [place]: order says Rule out renal artery stenosis. Patient is a long-term smoker, continues smoking. No DM. History of PAD. Aortic Velocity @ SMA (cm/s) 46.2 RIGHT KIDNEY LEFT KIDNEY Velocity (cm/s) Velocity (cm/s) Sys/Perez Sys/Perez Resistive Index Resistive Index 162.2 / 44.0 0.73 Proximal Renal Artery 76.9 / 16.7 0.78 134.3 / 25.8 0.81 Mid Renal Artery 153.8 / 15.9 0.90 101.0 / 14.0 0.86 Distal Renal Artery 97.5 / 27.3 0.72 34.7 / 6.6 0.81 Upper Pole 121.5 / 20.7 0.83 50.8 / 9.5 0.81 Mid Pole 115.7 / 20.7 0.82 74.0 / 13.6 0.82 Lower Pole 79.3 / 17.4 0.78 3.50 Renal Aortic Ratio 3.33 Accleration Index (cm/sec2) 1079.0 Upper Pole 5409.0 0 0 673.00 Mid Pole 3954.0 0 1252.0 Lower Pole 953.00 0 108.7 Kidney Length (mm) 128.6 FINDINGS tech difficult study CONCLUSIONS Slightly elevated Right Renal/Aortic peak systolic velocity ratio 3.5 at the lower end of the range but within normal limits for age. No significant Right renal artery stenosis. Left Renal/Aortic peak sv ratio 3.3 with systolic velocities within normal limits. No left renal artery stenosis. No hydronephrosis in either kidney Julio Cesar José MD (Electronically Signed) Final Date: 19 June 2023 15:55 S
[2023-06-18] MEDS: TRAMadol 50 mg Tablet PO ×2 (12:22→19:45)
[2023-06-18] MEDS: FUROsemide 10 mg/mL SDV 4mL 40 MG IVP (14:23)
[2023-06-18] MEDS: potassium chloride ER 20 mEq Tablet 40 MEQ PO (14:23)
--- NOTE | 2023-06-18 15:14 | PC.NURSE ---
1450 Called report to Angelo in [facility]. Transfered patient with all belongings including glasses and one dunture plate. no c/o's. at bedside and walked over to room 112 as I transfered him. Sat him in bedside chair and [facility] nurse at bedside.
[2023-06-18 20:19] LABS: Glucose Point of Care 135 mg/dL (70-110)
[2023-06-19] VITALS (33 sets, daily range): BP systolic 119–159; BP diastolic 75–92; PULSE 93–142; RESP 17–27; TEMP 36.6–37.2; O2SAT 88–97; BMI 27.1
[2023-06-19] MEDS: ipratropium-albuterol 3 mL Neb INHALATION (00:14)
[2023-06-19] MEDS: vancomycin 1,500 MG/300 ML PIGGYBACK 200 MG IV ×2 (00:49→18:13)
[2023-06-19] MEDS: dilTIAZem 60 mg Tablet PO ×3 (00:49→12:54)
[2023-06-19 04:01] LABS: Basophils # 0.1 10^3/uL (0.0-0.1); Basophils % 0.3 %; Eosinophils % 0.2 %; Hematocrit 39.8 % (37-53); Lymphocytes # 2.1 10^3/uL (0.8-4.8); Lymphocytes % 10.1 %; Mean Corpuscular HGB Conc 31.9 g/dL (30-55); Mean Corpuscular Volume 93.9 fl (82-101); Mean Platelet Volume 10.6 fL (7.4-10.4); Monocytes # 2.2 10^3/uL (0.2-0.9); Monocytes % 10.5 %; Neutrophils # 16.29 10^3/uL (1.8-7.7); Neutrophils % 78.3 %; Nucleated Red Blood Cells % 0 %; Platelet Count 358 10^3/cmm (157-399); Red Blood Count 4.24 10^6/uL (3.85-5.65); Red Cell Distribution Width 13.8 % (12.1-15.1); White Blood Count 20.81 10^3/uL (3.29-11.43)
[2023-06-19 04:15] LABS: Blood Urea Nitrogen 24 mg/dL (8-23); Calcium 8.8 mg/dL (8.5-10.5); Carbon Dioxide 24 mmol/L (22-29); Chloride 103 mmol/L (98-107); Glucose 127 mg/dL (65-115); Osmolality Calculated 300 mOsm/kg (285-295); Sodium 142 mmol/L (136-145)
[2023-06-19] MEDS: piperacillin-tazobactam 3.375 GM in sodium chloride 0.9% (plus) 50 ML IV ×3 (05:05→20:23)
[2023-06-19 05:48] LABS: Glucose Point of Care 130 mg/dL (70-110)
[2023-06-19] MEDS: finasteride 5 mg Tablet PO (08:16)
[2023-06-19] MEDS: losartan 50 mg Tablet PO (08:16)
[2023-06-19] MEDS: tamsulosin 0.4 mg Capsule PO (08:16)
[2023-06-19] MEDS: amiodarone 200 mg Tablet 400 MG PO ×2 (08:17→18:12)
[2023-06-19] MEDS: sennosides-docusate Tablet 1 TAB PO (08:17)
[2023-06-19] MEDS: TRAMadol 50 mg Tablet PO ×3 (08:22→21:03)
--- NOTE | 2023-06-19 09:00 | PM.PN ---
Subjective Subjective: Patient denies chest pain. Heart rate is uncontrolled. Vitals/I&O/Wt Last Vital Signs Temp 99.0 F 06/19/23 05:45 Pulse 126 H 06/19/23 08:35 Resp 20 H 06/19/23 08:35 BP 148/90 06/19/23 08:16 Pulse Ox 93 06/19/23 08:35 O2 Del Method Nasal Cannula 06/19/23 08:35 O2 Flow Rate 2.5 06/19/23 08:35 FiO2 30 06/19/23 00:14 06/18/23 06/19/23 06/19/23 22:59 06:59 14:59 Intake Total 50 / 640 350 / 990 Output Total 100 / 100 200 / 300 Balance -50 / 540 150 / 690 Weight last 48 hrs Weight 200 lb 1.6 oz Weight 200 lb 1.6 oz Physical Exam Narrative: GENERAL: Patient is alert NECK: No jugular vein distension. [] HEENT: No cyanosis. No icterus. No pallor. [] HEART: Irregularly irregular, tachycardia LUNGS: Clear to auscultate bilaterally. [] CENTRAL NERVOUS SYSTEM: Grossly nonfocal. [] EXTREMITIES: Lower extremities with 1+ edema bilaterally. Urinary Catheter Management: Waller: Cath Placed During This Visit: yes Reason for Continuing Indwelling Catheter: Accurate Measurement of Urinary Output in Critically Ill Patients Urinary Catheter Date of Insertion: 06/17/23 Urinary Catheter Time of Insertion: 03:00 Data 06/20/23 03:55 06/20/23 03:55 A&P Assessment and plan (1) Atrial fibrillation: Qualifiers: Atrial fibrillation type: unspecified Qualified Code(s): I48.91 - Unspecified atrial fibrillation (2) Hyperlipidemia: (3) Hypertension: (4) Peripheral vascular disease of lower extremity: (5) Sepsis: Qualifiers: Acute respiratory failure type: unspecified Sepsis acute organ dysfunction status: with acute organ dysfunction Sepsis type: sepsis due to unspecified organism Severe sepsis acute organ dysfunction type: acute respiratory failure Severe sepsis shock status: without septic shock Qualified Code(s): A41.9 - Sepsis, unspecified organism; R65.20 - Severe sepsis without septic shock; J96.00 - Acute respiratory failure, unspecified whether with hypoxia or hypercapnia (6) Pneumonia: Qualifiers: Laterality: bilateral Lung location: lower lobe of lung Pneumonia type: due to unspecified organism Qualified Code(s): J18.9 - Pneumonia, unspecified organism (7) Diverticulitis: Plan Patient's heart rate is uncontrolled. We will uptitrate P.o. Cardizem to 90 mg every 6 hours. Will also start metoprolol 25 mg twice daily. Continue amiodarone. Continue tele monitoring Thank you for involving us with care of this patient. Will continue to follow. Please call with questions. Attestations Medical Necessity Statement*: Care expected to cross 2 midnights. Coding Level of Care Code Acute Code for [facility] Diagnoses Atrial fibrillation I48.91 Atrial fibrillation type: unspecified Hyperlipidemia E78.5 Hypertension I10 Peripheral vascular disease of lower extremity I73.9 Sepsis A41.9; R65.20; J96.00 Acute respiratory failure type: unspecified Sepsis acute organ dysfunction status: with acute organ dysfunction Sepsis type: sepsis due to unspecified organism Severe sepsis acute organ dysfunction type: acute respiratory failure Severe sepsis shock status: without septic shock Pneumonia J18.9 Laterality: bilateral Lung location: lower lobe of lung Pneumonia type: due to unspecified organism Diverticulitis K57.92
[2023-06-19] MEDS: FUROsemide 10 mg/mL SDV 4mL 40 MG IVP (12:53)
[2023-06-19] MEDS: enoxaparin 100 mg/mL Syringe SUBCUT (12:53)
--- NOTE | 2023-06-19 14:06 | P.PN_ITS ---
Subjective 2 Subjective: Seen at bedside this AM. states he is feeling improved this AM. pt continues to be unsure of why he is in hospital. again discussed his Dx of diverticulitis, COPD exac, HF, and afib. WBC cound has slightly improved. toleratinv IV Abx well sitting in bed watching TV. This morning white count has worsened Hr has regressed since transitioning from Cardizem & Amiodarone GGT to PO. HR today has been in 110's and sometimes in 120's. Asymptomatic No plan for cardioversion patient's confusion has improved however very hard of hearing does have poor insight to his health Currently on broad-spectrum antibiotics No fever Vitals/I&O/Wt Last Vital Signs Temp 99.0 F 06/19/23 05:45 Pulse 126 H 06/19/23 08:35 Resp 20 H 06/19/23 08:35 BP 148/90 06/19/23 08:16 Pulse Ox 93 06/19/23 08:35 O2 Del Method Nasal Cannula 06/19/23 08:35 O2 Flow Rate 2.5 06/19/23 08:35 FiO2 30 06/19/23 00:14 06/18/23 06/19/23 06/19/23 22:59 06:59 14:59 Intake Total 50 / 640 350 / 990 50 / 50 Output Total 100 / 100 200 / 300 550 / 550 Balance -50 / 540 150 / 690 -500 / -500 Weight last 48 hrs Weight 200 lb 1.6 oz Weight 200 lb 1.6 oz Physical Exam 2 Narrative: Sitting upright in bed, AOx3 Irr Irr, 2/6 DAVE at LSB, no rubs/gallops. 2+ edema up to knee lungs clear to auscultation except for persistent mild rhonchi. seen on 2.5L NC in room HR bouncing from low 100's to high 120's. slightly hypertensive Urinary Catheter Management: Waller: Cath Placed During This Visit: yes Reason for Continuing Indwelling Catheter: Accurate Measurement of Urinary Output in Critically Ill Patients Urinary Catheter Date of Insertion: 06/17/23 Urinary Catheter Time of Insertion: 03:00 Data 06/19/23 03:42 06/19/23 03:42 A&P Assessment and plan (1) Hypertension: (2) Atrial fibrillation: Qualifiers: Atrial fibrillation type: unspecified Qualified Code(s): I48.91 - Unspecified atrial fibrillation (3) Peripheral vascular disease of lower extremity: (4) Diverticulitis: (5) Sepsis: Qualifiers: Acute respiratory failure type: unspecified Sepsis acute organ dysfunction status: with acute organ dysfunction Sepsis type: sepsis due to unspecified organism Severe sepsis acute organ dysfunction type: acute respiratory failure Severe sepsis shock status: without septic shock Qualified Code(s): A41.9 - Sepsis, unspecified organism; R65.20 - Severe sepsis without septic shock; J96.00 - Acute respiratory failure, unspecified whether with hypoxia or hypercapnia (6) Pneumonia: Qualifiers: Laterality: bilateral Lung location: lower lobe of lung Pneumonia type: due to unspecified organism Qualified Code(s): J18.9 - Pneumonia, unspecified organism Plan 77-year male who came in for shortness of breath, he was diagnosed with new onset A-fib he was transitioned to ICU because we noticed some confusion with worsening of leukocytosis with A-fib RVR He was put on amiodarone and Cardizem drip which we have turned off and currently he is on p.o. medications. tolerating PO well; however, pt became tachycardic again Mentation and overaly symptomology has improved; however, continues to have persistent leukocytosis >20,000 x 3 days. continue borad spectrum Abx New onset A-fib RVR Currently on p.o. regimen of Amiodarone and Cardizem. will increase cardizem dosage to 90 and add lopressor No plan for cardioversion followed by Dr. Dozier Sepsis related to diverticulitis and pneumonia Currently on broad-spectrum antibiotics Metabolic encephalopathy related to sepsis: Improving Tachyarrhythmia related heart failure exacerbation: Continue diuresis Resistant hypertension -pending renal dopplar to r/o renal artery stenosis. Patient takes clonidine at home he is experiencing rebound hypertension hypokalemia -Give KCL 40mg x 2 dosages MAICOL -Cr 1.5, slight worsening. likely 2/2 Afib and decreased renal perfusion. -will monitor closely. once HR improved this should as well Diet: clear. hold advancing 2/2 leukocytosis or until diverticulitis improves. Clear liquid diet I will not advance diet until his white count improves he has ascending colon diverticulitis no sign of perforation I will repeat lactic acid by tomorrow He is not complain abdominal pain [id number] 5: Currently on therapeutic Lovenox Full code [facility] Attestations 2 Medical Necessity Statement*: requires 2 overnight stays due to sepsis and Afib RVR Coding Level of Care Code 06693 Diagnoses Hypertension I10 Atrial fibrillation I48.91 Atrial fibrillation type: unspecified Peripheral vascular disease of lower extremity I73.9 Diverticulitis K57.92 Sepsis A41.9; R65.20; J96.00 Acute respiratory failure type: unspecified Sepsis acute organ dysfunction status: with acute organ dysfunction Sepsis type: sepsis due to unspecified organism Severe sepsis acute organ dysfunction type: acute respiratory failure Severe sepsis shock status: without septic shock Pneumonia J18.9 Laterality: bilateral Lung location: lower lobe of lung Pneumonia type: due to unspecified organism
[2023-06-19] MEDS: potassium chloride ER 20 mEq Tablet 40 MEQ PO ×2 (15:37→20:24)
[2023-06-19] MEDS: dilTIAZem 60 mg Tablet 90 MG PO ×2 (15:37→20:24)
[2023-06-19 18:22] LABS: Vancomycin Trough 18.5 ug/mL (10-15)
[2023-06-19] MEDS: metoprolol tartrate 25 mg Tablet PO (20:24)
[2023-06-19 20:42] LABS: Glucose Point of Care 231 mg/dL (70-110)
[2023-06-20] VITALS (15 sets, daily range): BP systolic 120–157; BP diastolic 78–94; PULSE 83–124; RESP 17–35; TEMP 36.6–36.7; O2SAT 93–97
[2023-06-20] MEDS: dilTIAZem 60 mg Tablet 90 MG PO ×4 (02:39→20:46)
[2023-06-20] MEDS: ipratropium-albuterol 3 mL Neb INHALATION ×4 (03:33→20:14)
[2023-06-20 04:07] LABS: Basophils # 0.1 10^3/uL (0.0-0.1); Basophils % 0.3 %; Eosinophils # 0.1 10^3/uL (0.0-0.8); Eosinophils % 0.7 %; Hematocrit 41.3 % (37-53); Lymphocytes # 2.3 10^3/uL (0.8-4.8); Lymphocytes % 13.5 %; Mean Corpuscular HGB Conc 31.7 g/dL (30-55); Mean Corpuscular Hemoglobin 29.4 pg (27-33); Mean Corpuscular Volume 92.8 fl (82-101); Mean Platelet Volume 10.6 fL (7.4-10.4); Monocytes # 1.6 10^3/uL (0.2-0.9); Monocytes % 9.2 %; Neutrophils # 13.02 10^3/uL (1.8-7.7); Neutrophils % 75.9 %; Nucleated Red Blood Cells % 0 %; Platelet Count 392 10^3/cmm (157-399); Red Blood Count 4.45 10^6/uL (3.85-5.65); Red Cell Distribution Width 13.8 % (12.1-15.1); White Blood Count 17.14 10^3/uL (3.29-11.43)
[2023-06-20 04:32] LABS: Alanine Aminotransferase 18 U/L (0-41); Albumin Level 3.3 g/dL (3.5-5.2); Alkaline Phosphatase 71 U/L (40-130); Anion Gap 16.9 (5-19); Aspartate Amino Transferase 18 U/L (0-40); Blood Urea Nitrogen 21 mg/dL (8-23); Carbon Dioxide 24 mmol/L (22-29); Chloride 109 mmol/L (98-107); Globulin 3.7 g/dL (1.3-4.6); Glucose 134 mg/dL (65-115); Osmolality Calculated 307 mOsm/kg (285-295); Potassium 3.9 mmol/L (3.5-5.1); Sodium 146 mmol/L (136-145); Total Bilirubin 0.5 mg/dL (0.15-1.2)
[2023-06-20] MEDS: piperacillin-tazobactam 3.375 GM in sodium chloride 0.9% (plus) 50 ML IV ×3 (06:03→20:46)
[2023-06-20 06:28] LABS: Glucose Point of Care 128 mg/dL (70-110)
--- NOTE | 2023-06-20 07:45 | P.PN_ITS ---
Subjective 2 Subjective: Patient is stable. No chest pain Vitals/I&O/Wt Last Vital Signs Temp 97.8 F 06/20/23 04:00 Pulse 117 H 06/20/23 07:41 Resp 22 H 06/20/23 07:39 BP 152/94 06/20/23 04:00 Pulse Ox 93 06/20/23 07:39 O2 Del Method Nasal Cannula 06/20/23 07:39 O2 Flow Rate 2 06/20/23 07:39 FiO2 30 06/20/23 03:33 06/19/23 06/20/23 06/20/23 22:59 06:59 14:59 Intake Total 790 / 1080 50 / 1130 Output Total 700 / 1250 Balance 790 / 530 -650 / -120 Weight last 48 hrs Weight 207 lb 1.6 oz Weight 200 lb 1.6 oz Physical Exam 2 Narrative: GENERAL: Patient is alert NECK: No jugular vein distension. [] HEENT: No cyanosis. No icterus. No pallor. [] HEART: Irregularly irregular, tachycardia LUNGS: Clear to auscultate bilaterally. [] CENTRAL NERVOUS SYSTEM: Grossly nonfocal. [] EXTREMITIES: Lower extremities with 1+ edema bilaterally. Urinary Catheter Management: Waller: Cath Placed During This Visit: yes Reason for Continuing Indwelling Catheter: Accurate Measurement of Urinary Output in Critically Ill Patients Urinary Catheter Date of Insertion: 06/17/23 Urinary Catheter Time of Insertion: 03:00 Data 06/21/23 03:23 06/21/23 03:23 A&P Assessment and plan (1) Atrial fibrillation: Qualifiers: Atrial fibrillation type: unspecified Qualified Code(s): I48.91 - Unspecified atrial fibrillation (2) Hyperlipidemia: (3) Hypertension: (4) Peripheral vascular disease of lower extremity: (5) Sepsis: Qualifiers: Acute respiratory failure type: unspecified Sepsis acute organ dysfunction status: with acute organ dysfunction Sepsis type: sepsis due to unspecified organism Severe sepsis acute organ dysfunction type: acute respiratory failure Severe sepsis shock status: without septic shock Qualified Code(s): A41.9 - Sepsis, unspecified organism; R65.20 - Severe sepsis without septic shock; J96.00 - Acute respiratory failure, unspecified whether with hypoxia or hypercapnia (6) Pneumonia: Qualifiers: Laterality: bilateral Lung location: lower lobe of lung Pneumonia type: due to unspecified organism Qualified Code(s): J18.9 - Pneumonia, unspecified organism (7) Diverticulitis: Plan Patient's Cardizem uptitrated to 90 mg every 6 hours. Will also uptitrate metoprolol today. Thank you for involving us with care of this patient. Will continue to follow. Please call with questions. Attestations 2 Medical Necessity Statement*: Care expected to cross 2 midnights. Coding Level of Care Code Acute Code for [facility] Diagnoses Atrial fibrillation I48.91 Atrial fibrillation type: unspecified Hyperlipidemia E78.5 Hypertension I10 Peripheral vascular disease of lower extremity I73.9 Sepsis A41.9; R65.20; J96.00 Acute respiratory failure type: unspecified Sepsis acute organ dysfunction status: with acute organ dysfunction Sepsis type: sepsis due to unspecified organism Severe sepsis acute organ dysfunction type: acute respiratory failure Severe sepsis shock status: without septic shock Pneumonia J18.9 Laterality: bilateral Lung location: lower lobe of lung Pneumonia type: due to unspecified organism Diverticulitis K57.92
[2023-06-20] MEDS: amiodarone 200 mg Tablet 400 MG PO ×2 (08:21→18:14)
[2023-06-20] MEDS: losartan 50 mg Tablet PO (08:23)
[2023-06-20] MEDS: metoprolol tartrate 25 mg Tablet 50 MG PO (08:23)
[2023-06-20] MEDS: sennosides-docusate Tablet 1 TAB PO (08:23)
[2023-06-20] MEDS: finasteride 5 mg Tablet PO (08:24)
[2023-06-20] MEDS: tamsulosin 0.4 mg Capsule PO (08:24)
[2023-06-20] MEDS: TRAMadol 50 mg Tablet PO ×2 (08:29→21:00)
--- NOTE | 2023-06-20 11:10 | P.PN_ITS ---
Subjective 2 Subjective: Patient is doing much better No abdominal pain no chest pain Currently eating breakfast at the time of my evaluation Not confused today Vitals/I&O/Wt Last Vital Signs Temp 97.8 F 06/20/23 08:00 Pulse 124 H 06/20/23 08:00 Resp 22 H 06/20/23 08:00 BP 120/92 06/20/23 08:00 Pulse Ox 96 06/20/23 08:00 O2 Del Method Nasal Cannula 06/20/23 08:00 O2 Flow Rate 2 06/20/23 07:39 FiO2 30 06/20/23 03:33 06/19/23 06/20/23 06/20/23 22:59 06:59 14:59 Intake Total 790 / 1080 50 / 1130 730 / 730 Output Total 700 / 1250 Balance 790 / 530 -650 / -120 730 / 730 Weight last 48 hrs Weight 93.939 kg Weight 90.764 kg Physical Exam 2 Narrative: Awake and alert Abdomen soft GCS 15 Nonfocal neuroexam Currently on room air Eating breakfast Urinary Catheter Management: Waller: Cath Placed During This Visit: yes Reason for Continuing Indwelling Catheter: Accurate Measurement of Urinary Output in Critically Ill Patients Urinary Catheter Date of Insertion: 06/17/23 Urinary Catheter Time of Insertion: 03:00 Data 06/20/23 03:55 06/20/23 03:55 A&P Assessment and plan (1) Hypertension: (2) Atrial fibrillation: Qualifiers: Atrial fibrillation type: unspecified Qualified Code(s): I48.91 - Unspecified atrial fibrillation (3) Esophagitis: (4) Gastritis: (5) Diverticulitis: (6) Sepsis: Qualifiers: Acute respiratory failure type: unspecified Sepsis acute organ dysfunction status: with acute organ dysfunction Sepsis type: sepsis due to unspecified organism Severe sepsis acute organ dysfunction type: acute respiratory failure Severe sepsis shock status: without septic shock Qualified Code(s): A41.9 - Sepsis, unspecified organism; R65.20 - Severe sepsis without septic shock; J96.00 - Acute respiratory failure, unspecified whether with hypoxia or hypercapnia (7) Pneumonia: Qualifiers: Laterality: bilateral Lung location: lower lobe of lung Pneumonia type: due to unspecified organism Qualified Code(s): J18.9 - Pneumonia, unspecified organism Plan Improvement of leukocytosis I will discharge him by tomorrow if heart rate and leukocytosis trending down Continue amiodarone and Cardizem Might have to add digoxin if his heart rate stays on the higher side above 120 Diverticulitis and sepsis: Resolved Leukocytosis improving Will need 5-day treatment of antibiotics at the time of discharge Patient will also need outpatient general surgery follow-up for colonoscopy Full code Will discharge him on Eliquis BPH: Added tamsulosin Remove Waller catheter today Hematuria improved Attestations 2 Medical Necessity Statement*: Possible discharge tomorrow if improved leukocytosis and heart rate under control Diagnoses Hypertension I10 Atrial fibrillation I48.91 Atrial fibrillation type: unspecified Esophagitis K20.90 Gastritis K29.70 Diverticulitis K57.92 Sepsis A41.9; R65.20; J96.00 Acute respiratory failure type: unspecified Sepsis acute organ dysfunction status: with acute organ dysfunction Sepsis type: sepsis due to unspecified organism Severe sepsis acute organ dysfunction type: acute respiratory failure Severe sepsis shock status: without septic shock Pneumonia J18.9 Laterality: bilateral Lung location: lower lobe of lung Pneumonia type: due to unspecified organism
[2023-06-20] MEDS: enoxaparin 100 mg/mL Syringe SUBCUT ×2 (11:26→22:22)
[2023-06-20] MEDS: FUROsemide 10 mg/mL SDV 4mL 40 MG IVP (12:28)
[2023-06-20] MEDS: vancomycin 1,500 MG/300 ML PIGGYBACK 200 MG IV (18:15)
[2023-06-20] MEDS: metoprolol tartrate 50 mg Tablet 100 MG PO (20:45)
--- NOTE | 2023-06-20 21:07 | PC.NURSE ---
Patient requesting his tramadol. Informed Dr Damon that his medication had . Received order to resume as previously ordered.
[2023-06-21] VITALS (11 sets, daily range): BP systolic 109–173; BP diastolic 58–98; PULSE 79–96; RESP 18–22; TEMP 36.6–37.2; O2SAT 88–96
[2023-06-21] MEDS: dilTIAZem 60 mg Tablet 90 MG PO ×2 (02:48→09:35)
[2023-06-21] MEDS: ipratropium-albuterol 3 mL Neb INHALATION ×2 (03:14→08:51)
[2023-06-21 03:31] LABS: Basophils # 0.1 10^3/uL (0.0-0.1); Basophils % 0.4 %; Eosinophils # 0.3 10^3/uL (0.0-0.8); Eosinophils % 1.9 %; Lymphocytes % 12.8 %; Mean Corpuscular HGB Conc 32.3 g/dL (30-55); Mean Corpuscular Hemoglobin 29.9 pg (27-33); Mean Corpuscular Volume 92.6 fl (82-101); Mean Platelet Volume 10.3 fL (7.4-10.4); Monocytes # 1.3 10^3/uL (0.2-0.9); Monocytes % 8.3 %; Neutrophils # 11.81 10^3/uL (1.8-7.7); Neutrophils % 75.8 %; Nucleated Red Blood Cells % 0 %; Platelet Count 394 10^3/cmm (157-399); Red Blood Count 4.21 10^6/uL (3.85-5.65); Red Cell Distribution Width 13.7 % (12.1-15.1); White Blood Count 15.56 10^3/uL (3.29-11.43)
[2023-06-21 03:54] LABS: Alanine Aminotransferase 18 U/L (0-41); Albumin Level 3.2 g/dL (3.5-5.2); Alkaline Phosphatase 68 U/L (40-130); Anion Gap 15.8 (5-19); Aspartate Amino Transferase 17 U/L (0-40); Blood Urea Nitrogen 22 mg/dL (8-23); Calcium 8.7 mg/dL (8.5-10.5); Carbon Dioxide 25 mmol/L (22-29); Chloride 106 mmol/L (98-107); Globulin 3.4 g/dL (1.3-4.6); Glucose 116 mg/dL (65-115); Osmolality Calculated 300 mOsm/kg (285-295); Potassium 3.8 mmol/L (3.5-5.1); Sodium 143 mmol/L (136-145); Total Bilirubin 0.6 mg/dL (0.15-1.2); Total Protein 6.6 g/dL (6.6-8.7)
[2023-06-21] MEDS: piperacillin-tazobactam 3.375 GM in sodium chloride 0.9% (plus) 50 ML IV (04:38)
--- NOTE | 2023-06-21 08:09 | P.DS_ITS ---
Discharge Providers Date of Admission: 06/16/23 14:25 Date of Discharge: June 21, 2023 Attending Provider at Admission: David Arellano MD Attending Provider at Discharge: David Arellano MD Primary Care Provider: Caterina Barrett DO Diagnoses at Discharge Discharge Diagnosis (1) Hypertension: Status: Acute (2) Atrial fibrillation: Status: Acute Qualifiers: Atrial fibrillation type: unspecified Qualified Code(s): I48.91 - Unspecified atrial fibrillation (3) Esophagitis: Status: Acute (4) Gastritis: Status: Acute (5) Diverticulitis: Status: Acute (6) Sepsis: Status: Acute Qualifiers: Acute respiratory failure type: unspecified Sepsis acute organ dysfunction status: with acute organ dysfunction Sepsis type: sepsis due to unspecified organism Severe sepsis acute organ dysfunction type: acute respiratory failure Severe sepsis shock status: without septic shock Qualified Code(s): A41.9 - Sepsis, unspecified organism; R65.20 - Severe sepsis without septic shock; J96.00 - Acute respiratory failure, unspecified whether with hypoxia or hypercapnia (7) Pneumonia: Status: Acute Qualifiers: Laterality: bilateral Lung location: lower lobe of lung Pneumonia type: due to unspecified organism Qualified Code(s): J18.9 - Pneumonia, unspecified organism Reason for Visit Reason for Visit: sob, shakes, cough Hospital Course Hospital Course 77-year male who was admitted for management evaluation of shortness of breath he was diagnosed with new onset A-fib required Cardizem drip which failed to control his heart rate amnio drip was added cardiology was consulted for possible cardioversion and transesophageal echo however he was successfully transition to p.o. regimen with help of metoprolol, Cardizem and amiodarone. 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 Patient will be given Eliquis at the time of discharge for his Ray Vascor 5. His white count worsened up to 21,000 at the time of discharge it is 15,000 and trending down. Creatinine 1.3 peaked at 1.5, he has preserved ejection fraction however creatinine improved wi th use of diuretics CHF component of heart failure clinically. Physical Exam Narrative: Awake and alert Eating breakfast Hard of hearing GCS 15 Pleasant cooperative S1, S2 variable without RVR Currently on room air Urinary Catheter Management: Waller: Cath Placed During This Visit: yes, but has since been removed by the nurse Reason for Continuing Indwelling Catheter: Not indwelling catheter Urinary Catheter Date of Insertion: 06/17/23 Urinary Catheter Time of Insertion: 03:00 Date Urinary Catheter Removed: 06/20/23 Time Urinary Catheter Discontinued: 13:00 Discharge Data Studies Completed and Pending Completed Studies During Hospitalization Category Date Time Status CT abdomen pelvis wo con [id number] Routine Cat Scan 06/16/23 16:[address] head wo con* [id number] Stat Cat Scan 06/17/23 08:43 Completed CTA PE [CT angio chest PE protcl [id number]] Stat Cat Scan 06/16/23 15:09 Completed CXRP [XR chest 1V portable [id number]] Stat Exams 06/16/23 13:21 Completed CXRP [XR chest 1V portable [id number]] Stat Exams 06/17/23 01:24 Completed XR chest 1V portable [id number] Urgent Exams 06/17/23 23:23 Completed CV renal doppler 35362 Routine Ultrasound 06/18/23 12:15 [place] [id number] Routine Ultrasound 06/17/23 06:00 Completed CV. echo complete* [id number] Routine Ultrasound 06/17/23 06:00 Completed Pending at discharge Category Date Time Status Blood Culture Stat Lab 06/16/23 14:19 Results Radiology Impressions Chest CTA 06/16/23 15:09 IMPRESSION: No pulmonary embolism. Mediastinal lymphadenopathy. COMMENTS: Consistent with the [employer]'s Incidental Findings Committee white paper (J [employer] Wild [employer]iol 2015): In patients aged 35 years and older with an incidental thyroid nodule equal to or greater than 1.[address], MRI or extrathyroidal US, further evaluation with dedicated thyroid US is recommended for patients with normal life expectancy and without comorbidities. For smaller nodules without suspicious features, no further evaluation or follow up is recommended. Abdomen/Pelvis CT 06/16/23 16:58 IMPRESSION: 1. Imaging findings suggestive of ascending colon diverticulitis. 2. Small right pleural effusion with adjacent atelectasis. Head CT 06/17/23 08:43 IMPRESSION: 1. 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 2. Age appropriate supratentorial and infratentorial atrophy. 3. Moderate chronic white matter microvascular ischemic disease. 4. No acute intracranial abnormality identified. Chest X-Ray 06/17/23 23:23 IMPRESSION: Improved lower lung zone and right basilar pulmonary edema versus pneumonia. Laboratory Results WBC 15.56 10^3/uL (3.29-11.43) H 06/21/23 03:23 RBC 4.21 10^6/uL (3.85-5.65) 06/21/23 03:23 Hgb 12.60 g/dL (11.27-16.99) 06/21/23 03:23 Hct 39.0 % (37-53) 06/21/23 03:23 MCV 92.6 fl (82-101) 06/21/23 03:23 MCH 29.9 pg (27-33) 06/21/23 03:23 MCHC 32.3 g/dL (30-55) 06/21/23 03:23 RDW 13.7 % (12.1-15.1) 06/21/23 03:23 Plt Count 394 10^3/cmm (157-399) 06/21/23 03:23 MPV 10.3 fL (7.4-10.4) 06/21/23 03:23 Neut % (Auto) 75.8 % 06/21/23 03:23 Lymph % (Auto) 12.8 % 06/21/23 03:23 [place] % (Auto) 8.3 % 06/21/23 03:23 Eos % (Auto) 1.9 % 06/21/23 03:23 Baso % (Auto) 0.4 % 06/21/23 03:23 Neut # (Auto) 11.81 10^3/uL (1.8-7.7) H 06/21/23 03:23 Lymph # (Auto) 2.0 10^3/uL (0.8-4.8) 06/21/23 03:23 [place] # (Auto) 1.3 10^3/uL (0.2-0.9) H 06/21/23 03:23 Eos # (Auto) 0.3 10^3/uL (0.0-0.8) 06/21/23 03:23 Baso # (Auto) 0.1 10^3/uL (0.0-0.1) 06/21/23 03:23 Nucleated RBC % (auto) 0 % 06/21/23 03:23 Nucleated RBCs # 0.0 /100WBC 06/21/23 03:23 D-Dimer 1.45 ug/mLFEU (0-0.59) H 06/16/23 13:46 Specimen Type Arterial 06/17/23 05:00 Sample Site Radial, right 06/17/23 05:00 ABG pH 7.42 (7.35-7.45) 06/17/23 05:00 ABG pCO2 38.9 mmHg (35-45) 06/17/23 05:00 ABG pO2 78.1 mmHg (80.0-100.0) L 06/17/23 05:00 ABG PO2/FiO2 Ratio 0 06/17/23 05:00 ABG HCO3 25.4 mmol/L (22-26) 06/17/23 05:00 ABG O2 Saturation 96.2 06/17/23 05:00 ABG Base Excess 1.0 mmol/L (-2.0-2.0) 06/17/23 05:00 Sam Test Pos 06/17/23 05:00 A-a O2 Gradient 9.4 mmHg (5-10) 06/17/23 05:00 Hematocrit 43.9 % (42-52) 06/17/23 05:00 Hgb O2 Saturation 95.1 % (95-100) 06/17/23 05:00 Carboxyhemoglobin 0.7 %THgb (0.4-20.1) 06/17/23 05:00 Methemoglobin 0.4 % (0.4-1.5) 06/17/23 05:00 Total Hemoglobin 14.3 g/dL (14-18) 06/17/23 05:00 Sodium 144.0 mmol/L (131-143) H 06/17/23 05:00 Potassium 3.8 mmol/L (3.5-5.0) 06/17/23 05:00 Glucose 136.0 mg/dL (70-115) H 06/17/23 05:00 Ionized Calcium 1.2 mmol/L (1.1-1.4) 06/17/23 05:00 O2 Delivery Device Nc 06/17/23 05:00 O2 Liters/Min 2.0 % 02/05/24 05:00 FiO2 28.0 % 06/17/23 05:00 Event Services Manager ID [email or web address] 06/17/23 05:00 Sodium 143 mmol/L (136-145) 06/21/23 03:23 Potassium 3.8 mmol/L (3.5-5.1) 06/21/23 03:23 Chloride 106 mmol/L (98-107) 06/21/23 03:23 Carbon Dioxide 25 mmol/L (22-29) 06/21/23 03:23 Anion Gap 15.8 (5-19) 06/21/23 03:23 BUN 22 mg/dL (8-23) 06/21/23 03:23 Creatinine 1.3 mg/dL (0.7-1.2) H 06/21/23 03:23 GFR Calculation Not Reportable 06/21/23 03:23 Glucose 116 mg/dL (65-115) H 06/21/23 03:23 POC Glucose 128 mg/dL (70-110) H 06/20/23 06:24 Estimat Average Glucose 120 06/16/23 13:46 Hemoglobin A1c 5.8 % (4.0-6.0) 06/16/23 13:46 Calculated Osmolality 300 mOsm/kg (285-295) H 06/21/23 03:23 Lactic Acid 2.8 mmol/L (0.5-2.2) H 06/16/23 13:46 Lactic Acid (Sepsis) 1.5 mmol/L (0.5-2.2) 06/16/23 16:22 Lactate 1.0 mmol/L (0.5-2.2) 06/20/23 03:55 Calcium 8.7 mg/dL (8.5-10.5) 06/21/23 03:23 Magnesium 1.9 mg/dL (1.7-2.3) 06/17/23 03:22 Total Bilirubin 0.6 mg/dL (0.15-1.2) 06/21/23 03:23 AST 17 U/L (0-40) 06/21/23 03:23 ALT 18 U/L (0-41) 06/21/23 03:23 Alkaline Phosphatase 68 U/L (40-130) 06/21/23 03:23 Troponin T Baseline 35 ng/L (0-15) H 06/16/23 14:25 Troponin T 120 Minute 33.90 ng/L (0-15) H 06/16/23 15:53 Delta Troponin T -1.10 ABS# (0-10) L 06/16/23 15:53 Troponin T Hi Sens 6Hr 49.01 ng/L (0-15) H 06/16/23 20:20 Troponin T Hi Sens 6Hr Delta 14.01 ng/L (0-12) H* 06/16/23 20:20 C-Reactive Protein 13.6 mg/L (0.0-4.9) H 06/17/23 03:22 NT-Pro-B Natriuret Pep 4303 pg/mL (0-450) H 06/16/23 13:46 Total Protein 6.6 g/dL (6.6-8.7) 06/21/23 03:23 Albumin 3.2 g/dL (3.5-5.2) L 06/21/23 03:23 Globulin 3.4 g/dL (1.3-4.6) 06/21/23 03:23 TSH 0.87 uIU/mL (0.27-4.20) 06/16/23 15:53 Vancomycin Trough 18.5 ug/mL (10-15) H 06/19/23 17:45 Urine Opiates Screen Negative ng/mL (Negative) 06/16/23 17:55 Ur Barbiturates Screen Negative ng/mL (Negative) 06/16/23 17:55 Ur Phencyclidine Scrn Negative ng/mL (Negative) 06/16/23 17:55 Ur Amphetamines Screen Negative ng/mL (Negative) 06/16/23 17:55 U Benzodiazepines Scrn Negative ng/mL (Negative) 06/16/23 17:55 Urine Cocaine Screen Negative ng/mL (Negative) 06/16/23 17:55 U Marijuana (THC) Screen Negative ng/mL (Negative) 06/16/23 17:55 Influenza Type A Ag negative (Negative) 06/16/23 13:47 Influenza Type B Ag negative (Negative) 06/16/23 13:47 SARS-CoV-2 Ag (Rapid) negative (Negative) 06/16/23 13:47 Vitals Last Vital Signs Temp 98.1 F 06/21/23 07:37 Pulse 96 06/21/23 07:37 Resp 22 H 06/21/23 07:37 BP 169/83 06/21/23 07:37 Pulse Ox 92 06/21/23 07:37 O2 Del Method Nasal Cannula 06/21/23 07:37 O2 Flow Rate 2 06/21/23 03:14 FiO2 30 06/20/23 03:33 Discharge Plan Discharge Patient Disposition: Home Condition: Stable Prescriptions: New metoprolol tartrate 50 mg Tablet 100 mg PO BID@0900,2100 Qty: 90 3RF Eliquis 5 mg tablet 5 mg PO BID Qty: 60 6RF Rx Instructions: for afib diltiazem HCl [Cardizem LA] 360 mg tablet extended release 24 hr 360 mg PO DAILY Qty: 90 4RF metronidazole 500 mg tablet 500 mg PO Q8H 7 Days Qty: 21 0RF amiodarone [Pacerone] 200 mg Tablet 400 mg PO DAILY Qty: 120 3RF Rx Instructions: 400 mg daily for 7 days then 200 mg daily to be continued` amoxicillin-pot clavulanate 875-125 mg tablet 1 tab PO BID Qty: 14 0RF furosemide [Lasix] 20 mg tablet 20 mg PO DAILY PRN (Reason: Weight gain more than 3 pounds in 24 hours) Qty: 90 2RF potassium chloride 10 mEq tablet extended release 10 meq PO DAILY PRN (Reason: Only take when you take Lasix) Qty: 60 0RF Rx Instructions: Only take with Lasix Continued clonidine HCl 0.1 mg tablet 0.1 mg PO TID PRN (Reason: Blood Pressure) metoprolol tartrate 100 mg tablet 100 mg PO BID tramadol 50 mg tablet 50 mg PO QID PRN (Reason: Pain) simvastatin 40 mg tablet 40 mg PO DAILY tamsulosin 0.4 mg capsule 0.4 mg PO DAILY gabapentin 300 mg capsule 300 mg PO TID finasteride 5 mg tablet 5 mg PO DAILY budesonide-formoterol [Symbicort] 160-4.5 mcg/actuation HFA aerosol inhaler 2 puff INHALATION BID albuterol sulfate 2.5 mg /3 mL (0.083 %) solution for nebulization 2.5 mg inhalation Q6H PRN (Reason: Shortness Of Breath Or Wheezing) Discharge Orders: Discharge Order (Routine); Ordered 06/21/23 Ordered By: David Arellano Referrals: Ifeoma Lopez MD [Referring] - 2 weeks ([facility] from Dr. Lopez[facility] Office will be calling you to schedule your appointment. They have your information already. You can call the number listed if you have any questions or concerns. Thank you.) Caterina Barrett DO [Primary Care Provider] - 06/28/23 10:00 am Patient Instructions: Metoprolol (By mouth) (Lopressor, Toprol XL), Diltiazem (By mouth) (Cardizem, Cardizem CD, Cardizem LA, Cardizem SR), Metronidazole (By mouth) (Flagyl, Flagyl 375, Flagyl ER), Amoxicillin/Clavulanate Potassium (By mouth) (Augmentin, Augmentin..., Amiodarone (By mouth) (Cordarone, Pacerone), Apixaban (By mouth) (Eliquis), Opioid Safety Activity Restrictions/Additional Instructions: Please take Lasix and potassium tablet on as-needed basis if you notice heart failure features such as weight gain shortness of breath. Finish your antibiotic regimen For your atrial fibrillation you will get metoprolol, Cardizem and amiodarone to keep your heart rate below 110 You will also need a blood thinner Eliquis 5 mg twice a day to prevent stroke Discharge Attestations Time Spent in Discharge Care*: greater than 30 min Quality Metrics Clinical Quality Measures [ No reported AMI, CVA or VTE this stay] Coding Level of Care Code Acute Code for [facility] Diagnoses Hypertension I10 Atrial fibrillation I48.91 Atrial fibrillation type: unspecified Esophagitis K20.90 Gastritis K29.70 Diverticulitis K57.92 Sepsis A41.9; R65.20; J96.00 Acute respiratory failure type: unspecified Sepsis acute organ dysfunction status: with acute organ dysfunction Sepsis type: sepsis due to unspecified organism Severe sepsis acute organ dysfunction type: acute respiratory failure Severe sepsis shock status: without septic shock Pneumonia J18.9 Laterality: bilateral Lung location: lower lobe of lung Pneumonia type: due to unspecified organism
--- NOTE | 2023-06-21 08:28 | PM.PN ---
Subjective Subjective: Patient is stable.Heart rate controlled. Vitals/I&O/Wt Last Vital Signs Temp 98.1 F 06/21/23 07:37 Pulse 96 06/21/23 07:37 Resp 22 H 06/21/23 07:37 BP 169/83 06/21/23 07:37 Pulse Ox 92 06/21/23 07:37 O2 Del Method Nasal Cannula 06/21/23 07:37 O2 Flow Rate 2 06/21/23 03:14 FiO2 30 06/20/23 03:33 06/20/23 06/21/23 06/21/23 22:59 06:59 14:59 Intake Total 590 / 1940 530 / 2470 Output Total 200 / 200 200 / 400 Balance 390 / 1740 330 / 2070 Weight last 48 hrs Weight 202 lb 14.4 oz Weight 207 lb 1.6 oz Physical Exam Narrative: GENERAL: Patient is alert NECK: No jugular vein distension. [] HEENT: No cyanosis. No icterus. No pallor. [] HEART: Irregularly irregular, tachycardia LUNGS: Clear to auscultate bilaterally. [] CENTRAL NERVOUS SYSTEM: Grossly nonfocal. [] EXTREMITIES: Lower extremities with 1+ edema bilaterally. Urinary Catheter Management: Waller: Cath Placed During This Visit: yes, but has since been removed by the nurse Reason for Continuing Indwelling Catheter: Not indwelling catheter Urinary Catheter Date of Insertion: 06/17/23 Urinary Catheter Time of Insertion: 03:00 Date Urinary Catheter Removed: 06/20/23 Time Urinary Catheter Discontinued: 13:00 Data 06/21/23 03:23 06/21/23 03:23 A&P Assessment and plan (1) Atrial fibrillation: Qualifiers: Atrial fibrillation type: unspecified Qualified Code(s): I48.91 - Unspecified atrial fibrillation (2) Hyperlipidemia: (3) Hypertension: (4) Peripheral vascular disease of lower extremity: (5) Sepsis: Qualifiers: Acute respiratory failure type: unspecified Sepsis acute organ dysfunction status: with acute organ dysfunction Sepsis type: sepsis due to unspecified organism Severe sepsis acute organ dysfunction type: acute respiratory failure Severe sepsis shock status: without septic shock Qualified Code(s): A41.9 - Sepsis, unspecified organism; R65.20 - Severe sepsis without septic shock; J96.00 - Acute respiratory failure, unspecified whether with hypoxia or hypercapnia (6) Pneumonia: Qualifiers: Laterality: bilateral Lung location: lower lobe of lung Pneumonia type: due to unspecified organism Qualified Code(s): J18.9 - Pneumonia, unspecified organism (7) Diverticulitis: Plan Heart rates are controlled. Can be discharged on cardizem, metoprolol and amiodarone along with Eliquis. Thank you for involving us with care of this patient. Please call with questions. Attestations Medical Necessity Statement*: Care expected to cross 2 midnights. Coding Level of Care Code Acute Code for [facility] Fwd Diagnoses Atrial fibrillation I48.91 Atrial fibrillation type: unspecified Hyperlipidemia E78.5 Hypertension I10 Peripheral vascular disease of lower extremity I73.9 Sepsis A41.9; R65.20; J96.00 Acute respiratory failure type: unspecified Sepsis acute organ dysfunction status: with acute organ dysfunction Sepsis type: sepsis due to unspecified organism Severe sepsis acute organ dysfunction type: acute respiratory failure Severe sepsis shock status: without septic shock Pneumonia J18.9 Laterality: bilateral Lung location: lower lobe of lung Pneumonia type: due to unspecified organism Diverticulitis K57.92
[2023-06-21] MEDS: amiodarone 200 mg Tablet 400 MG PO (09:35)
[2023-06-21] MEDS: metoprolol tartrate 50 mg Tablet 100 MG PO (09:35)
[2023-06-21] MEDS: finasteride 5 mg Tablet PO (09:35)
[2023-06-21] MEDS: losartan 50 mg Tablet PO (09:36)
[2023-06-21] MEDS: tamsulosin 0.4 mg Capsule PO (09:36)
[2023-06-21] MEDS: sennosides-docusate Tablet 1 TAB PO (09:36)
[2023-06-21] MEDS: enoxaparin 100 mg/mL Syringe SUBCUT (10:55)
--- NOTE | 2023-06-21 13:32 | PC.NURSE ---
discharge instructions given and explained to pt and spouse.both verb understanding of instructions.discharged via w/c to exit at [facility] time
== END 2023-06-21 13:32 | disposition home or self-care (01) | DRG 871 ==
LOC: ER 14:06 → CSU 15:16 → ICU 06-17 08:56 → CSU 06-18 15:01
PROVIDERS: Emergency Medicine; Family Medicine; Internal Medicine; Admitting Provider Internal Medicine; Emergency Provider Nurse Practitioner Family; PCP Family Medicine; Visit Provider Internal Medicine
DX: A41.9 Sepsis, unspecified organism (principal); G93.41 Metabolic encephalopathy; J96.00 Acute respiratory failure, unspecified whether with hypoxia or hypercapnia; J18.9 Pneumonia, unspecified organism; N17.9 Acute kidney failure, unspecified; I48.20 Chronic atrial fibrillation, unspecified; K57.32 Diverticulitis of large intestine without perforation or abscess without bleeding; J44.0 Chronic obstructive pulmonary disease with (acute) lower respiratory infection; J44.1 Chronic obstructive pulmonary disease with (acute) exacerbation; R65.20 Severe sepsis without septic shock; R31.9 Hematuria, unspecified; N40.0 Benign prostatic hyperplasia without lower urinary tract symptoms; E87.6 Hypokalemia; Z87.891 Personal history of nicotine dependence; I25.10 Atherosclerotic heart disease of native coronary artery without angina pectoris; G89.4 Chronic pain syndrome; Z86.73 Personal history of transient ischemic attack (TIA), and cerebral infarction without residual deficits; E78.5 Hyperlipidemia, unspecified; I11.0 Hypertensive heart disease with heart failure; I50.9 Heart failure, unspecified; I1A.0 Resistant hypertension; I73.9 Peripheral vascular disease, unspecified; K20.90 Esophagitis, unspecified without bleeding; K29.70 Gastritis, unspecified, without bleeding; H91.90 Unspecified hearing loss, unspecified ear
CPT/HCPCS: 36415; 36416; 36600; 51702; 51798; 70450; 71045; 71275; 74176; 80048; 80051; 80053; 80202; 80306; 82330; 82805; 82962; 83036; 83605; 83735; 83880; 84443; 84484; 85025; 85378; 86140; 87040; 87426; 87804; 93005; 93306; 93970; 93975; 94640; 94660; 94760; 96365; 96372; 96375; 96376; 99285; A4222; J0283; J0360; J1650; J1940; J2060; J2543; J3370; J3490; J7030; J7614; Q9967

== ENCOUNTER 2023-06-29 12:29 | Emergency (ER) | payer MEDICARE, MEDICAID, SELFPAY ==
[2023-06-29] VITALS (8 sets, daily range): BP systolic 131–149; BP diastolic 78–89; PULSE 57–106; RESP 18–23; TEMP 36.8; O2SAT 94–97
--- NOTE | 2023-06-29 12:35 | ECG_ITS ---
[facility] Test Date: 2023-06-29 Pat Name: Pati Telles Department: Room: Gender: Male Equipment Planner: : 1945 Requested By: Valery Lord Order Number: [id number] Shanthi MD: Claudy Wolff M.D. Measurements Intervals [place] Rate: 105 P: 0 IN: 0 QRS: 127 QRSD: 146 T: 17 QT: 358 QTc: 473 Interpretive Statements ATRIAL FIBRILLATION WITH RAPID VENTRICULAR RESPONSE RIGHT BUNDLE BRANCH BLOCK [120+ ms QRS DURATION, UPRIGHT V1, 40+ ms S IN I/aVL/V4/V5/V6] LEFT POSTERIOR FASCICULAR BLOCK [QRS AXIS > 109, INFERIOR Q] SEPTAL MYOCARDIAL INFARCTION , OF INDETERMINATE AGE [40+ ms Q WAVE IN V1/V2] Compared to ECG 06/17/2023 14:16:33 Left posterior fascicular block now present Myocardial infarct finding now present Ectopic atrial rhythm no longer present Indeterminate axis no longer present Electronically Signed On 06-30-2023 7:44:37 IT SENIOR ANALYST by Claudy Wolff M.D. [email or web address]
--- NOTE | 2023-06-29 12:35 | XRR_ITS ---
PROCEDURE INFORMATION: Exam: XR Chest Exam date and time: 06/29/2023 12:56 PM Age: 77 years old Clinical indication: Shortness of breath TECHNIQUE: Imaging protocol: Radiologic exam of the chest. Views: 1 view. COMPARISON: CR (CHEST, ) 06/17/2023 11:45 PM FINDINGS: Lungs: Bibasilar linear opacities, likely atelectatic lung changes. Pleural spaces: Unremarkable. No pleural effusion. No pneumothorax. Heart/Mediastinum: Unremarkable. No cardiomegaly. Bones/joints: Chronic degenerative changes of the shoulder joints. XR/XR chest 1V [id number] IMPRESSION: No acute findings.
--- NOTE | 2023-06-29 12:37 | ED_ITS ---
HPI - Chest Pain 2 General: Chief Complaint: Chest Pain Stated Complaint: CHEST PAIN Time Seen by Provider: 06/29/23 12:31 History of Present Illness: 77-year-old male with a history of COPD, A-fib on Eliquis and hypertension who presents to the emergency room by ambulance with shortness of breath and chest pain. He described like sharp pressure in the center of his chest. He has no known cardiac history. Nitroglycerin and Nitropaste did not help. He says he is a little bit more short of breath than his baseline. He is a bit tachypneic and has some scattered wheeze. Review of Systems 2 Narrative: Constitutional symptoms: Negative except as documented in HPI. Skin symptoms: Negative except as documented in HPI. Eye symptoms: Negative except as documented in HPI. ENMT symptoms: Negative except as documented in HPI. Respiratory symptoms: Negative except as documented in HPI. Cardiovascular symptoms: Negative except as documented in HPI. Gastrointestinal symptoms: Negative except as documented in HPI. Genitourinary symptoms: Negative except as documented in HPI. Musculoskeletal symptoms: Negative except as documented in HPI. Neurologic symptoms: Negative except as documented in HPI. Psychiatric symptoms: Negative except as documented in HPI. Endocrine symptoms: Negative except as documented in HPI. PFSH ED 2 PFSH: Medical History History of stroke Hyperlipidemia Hypertension Surgical History H/O right knee surgery History of ankle surgery History of esophagogastroduodenoscopy (EGD) No significant past surgical history Family History Father CAD (coronary artery disease) Diabetes Mother CAD (coronary artery disease) Sister Cancer Denies family history of Hypertension Social History Smoking and tobacco/nicotine status: former use of tobacco/nicotine Quit status (tobacco/nicotine): has quit using Year quit tobacco: 2022 Former quit date comment: smoked up to 2 pack per day x 61 years Alcohol intake: former Year of sobriety/quit date alcohol: 2013 Substance/Drug Use: never Household members: spouse Housing: House Marital status: Number of children: 4 Pets and animals: No Physical Exam 2 Narrative: EXAM NARRATIVE: General: Alert, no acute distress. Skin: Warm, dry. Some bruising on abdomen from DVT prophylaxis shots from his admission last week. Head: Normocephalic, atraumatic. Neck: Supple, trachea midline. Eye: Extraocular movements are intact. Ears, nose, mouth and throat: mucosa moist. Cardiovascular: Tachycardic, irregular, Normal peripheral perfusion. Respiratory: Coarse, scattered expiratory wheeze, prolonged expiratory phase, mild tachypnea, mild increased work of breathing, breath sounds are equal, Symmetrical chest wall expansion. Gastrointestinal: Soft, Nontender, Non distended, Normal bowel sounds. Musculoskeletal: Normal ROM, no deformity. Neurological: Alert and oriented, No focal neurological deficit observed. Psychiatric: Cooperative, appropriate mood & affect. Course 2 Vital Signs: Vital signs: Vital Signs Temperature 98.3 F 06/29/23 12:37 Pulse Rate 99 06/29/23 13:53 Respiratory Rate 20 H 06/29/23 13:51 Blood Pressure 149/89 06/29/23 13:34 Pulse Oximetry 97 06/29/23 13:51 Oxygen Delivery Me thod Nasal Cannula 06/29/23 13:51 Oxygen Flow Rate 3 06/29/23 13:51 MDM - Chest Pain Medical Decision Making Medical decision making: Differential diagnosis including but not limited to and based on the above HPI, review of systems and physical exam: Patient with chest pain and shortness of breath. Will be concern for acute coronary syndrome, pneumonia, COPD exacerbation, A-fib with RVR, congestive heart failure Orders to evaluate differential diagnosis: EKG, chest x-ray, basic lab work and an ABG. Also flu and COVID swabs. Lab Review: Laboratory results were reviewed and interpreted by myself the emergency room physician. EKG: Time 1235 rate 105. Atrial fibrillation with rapid ventricular response, No ST-T changes, no ectopy, This was reviewed and interpreted by myself the ER physician. CT of the chest without contrast. Possible aspiration pneumonia. Large pleural effusion. See the rest of the read below. I reviewed and interpreted these films personally. I also reviewed the radiology's report Reexamination: Patient still has some wheeze. No increased work of breathing. Some improvement after breathing treatments. No altered mental status. He has no abdominal pain. Lab Data 06/29/23 12:50 06/29/23 12:50 Radiology Impressions Chest X-Ray 06/29/23 12:35 IMPRESSION: No acute findings. Chest CT 06/29/23 13:06 IMPRESSION: 1. Distal bronchial wall thickening and occlusion of the left posterior lower lobe subsegmental bronchi, with associated left lower medial atelectasis. Aspiration pneumonia can not be ruled out. 2. Xvwvnthr-hx-ewdiz left-sided pleural effusion with compressive atelectasis. 3. Enlarged right paratracheal lymph node. 4. 1.2 centimeters right thyroid nodule. 5. Small pericardial effusion. 6. Nonspecific perinephric fat stranding. COMMENTS: Consistent with the [employer]'s Incidental Findings Committee white paper ([employer] Wild Radiol 2015): In patients aged 35 years and older with an incidental thyroid nodule equal to or greater than 1.[address], MRI or extrathyroidal US, further evaluation with dedicated thyroid US is recommended for patients with normal life expectancy and without comorbidities. For smaller nodules without suspicious features, no further evaluation or follow up is recommended. Laboratory Results WBC 30.89 10^3/uL (3.29-11.43) H* 06/29/23 12:50 RBC 4.79 10^6/uL (3.85-5.65) 06/29/23 12:50 Hgb 14.20 g/dL (11.27-16.99) 06/29/23 12:50 Hct 45.1 % (37-53) 06/29/23 12:50 MCV 94.2 fl (82-101) 06/29/23 12:50 MCH 29.6 pg (27-33) 06/29/23 12:50 MCHC 31.5 g/dL (30-55) 06/29/23 12:50 RDW 13.7 % (12.1-15.1) 06/29/23 12:50 Plt Count 521 10^3/cmm (157-399) H 06/29/23 12:50 MPV 10.2 fL (7.4-10.4) 06/29/23 12:50 Neut % (Auto) 82.5 % 06/29/23 12:50 Lymph % (Auto) 5.7 % 06/29/23 12:50 Forest % (Auto) 8.4 % 06/29/23 12:50 Eos % (Auto) 0.6 % 06/29/23 12:50 Baso % (Auto) 0.4 % 06/29/23 12:50 Neut # (Auto) 25.51 10^3/uL (1.8-7.7) H 06/29/23 12:50 Lymph # (Auto) 1.8 10^3/uL (0.8-4.8) 06/29/23 12:50 Forest # (Auto) 2.6 10^3/uL (0.2-0.9) H 06/29/23 12:50 Eos # (Auto) 0.2 10^3/uL (0.0-0.8) 06/29/23 12:50 Baso # (Auto) 0.1 10^3/uL (0.0-0.1) 06/29/23 12:50 Nucleated RBC % (auto) 0 % 06/29/23 12:50 Nucleated RBCs # 0.0 /100WBC 06/29/23 12:50 Specimen Type Arterial 06/29/23 12:34 Sample Site Radial, right 06/29/23 12:34 ABG pH 7.42 (7.35-7.45) 06/29/23 12:34 ABG pCO2 44.7 mmHg (35-45) 06/29/23 12:34 ABG pO2 71.5 mmHg (80.0-100.0) L 06/29/23 12:34 ABG PO2/FiO2 Ratio 0 06/29/23 12:34 ABG HCO3 28.7 mmol/L (22-26) H 06/29/23 12:34 ABG O2 Saturation 95.2 06/29/23 12:34 ABG Base Excess 3.5 mmol/L (-2.0-2.0) H 06/29/23 12:34 Sam Test Pos 06/29/23 12:34 A-a O2 Gradient 17.3 mmHg (5-10) H 06/29/23 12:34 Hematocrit 43.0 % (42-52) 06/29/23 12:34 Hgb O2 Saturation 94.2 % (95-100) L 06/29/23 12:34 Carboxyhemoglobin 1.0 %THgb (0.4-20.1) 06/29/23 12:34 Methemoglobin 0.2 % (0.4-1.5) L 06/29/23 12:34 Total Hemoglobin 14.0 g/dL (14-18) 06/29/23 12:34 Sodium 140.0 mmol/L (131-143) 06/29/23 12:34 Potassium 4.5 mmol/L (3.5-5.0) 06/29/23 12:34 Glucose 123.0 mg/dL (70-115) H 06/29/23 12:34 Ionized Calcium 1.3 mmol/L (1.1-1.4) 06/29/23 12:34 O2 Delivery Device Nc 06/29/23 12:34 O2 Liters/Min 4.0 % 06/29/23 12:34 FiO2 36.0 % 06/29/23 12:34 Tetryl Dissolver Operator ID Cak 06/29/23 12:34 Sodium 138 mmol/L (136-145) 06/29/23 12:50 Potassium 5.0 mmol/L (3.5-5.1) 06/29/23 12:50 Chloride 98 mmol/L (98-107) 06/29/23 12:50 Carbon Dioxide 30 mmol/L (22-29) H 06/29/23 12:50 Anion Gap 15.0 (5-19) 06/29/23 12:50 BUN 27 mg/dL (8-23) H 06/29/23 12:50 Creatinine 1.5 mg/dL (0.7-1.2) H 06/29/23 12:50 GFR Calculation Not Reportable 06/29/23 12:50 Glucose 131 mg/dL (65-115) H 06/29/23 12:50 Calculated Osmolality 293 mOsm/kg (285-295) 06/29/23 12:50 Lactic Acid 1.4 mmol/L (0.5-2.2) 06/29/23 12:50 Calcium 9.3 mg/dL (8.5-10.5) 06/29/23 12:50 Total Bilirubin 0.3 mg/dL (0.15-1.2) 06/29/23 12:50 AST 20 U/L (0-40) 06/29/23 12:50 ALT 27 U/L (0-41) 06/29/23 12:50 Alkaline Phosphatase 80 U/L (40-130) 06/29/23 12:50 Troponin T Baseline 38 ng/L (0-15) H 06/29/23 12:50 C-Reactive Protein 35.7 mg/L (0.0-4.9) H 06/29/23 12:50 Total Protein 7.8 g/dL (6.6-8.7) 06/29/23 12:50 Albumin 3.6 g/dL (3.5-5.2) 06/29/23 12:50 Globulin 4.2 g/dL (1.3-4.6) 06/29/23 12:50 Influenza Type A Ag negative (Negative) 06/29/23 13:03 Influenza Type B Ag negative (Negative) 06/29/23 13:03 SARS-CoV-2 Ag (Rapid) negative (Negative) 06/29/23 13:03 XR interpretation done by ED provider, pending radiology final review Other Data - Breathing treatments given in the emergency room. -Recent hospitalization so placing on broad-spectrum antibiotics. IV vancomycin and IV cefepime. -I discussed the patient with the hospitalist on-call who is admitting the patient. - Discussed findings and plan with patient. Answered any questions. - All laboratory values were reviewed and interpreted personally by myself, the ER physician - All imaging was reviewed and interpreted personally by myself, the ER physician. - Evaluation and treatment of this problem were appropriate in the emergency setting Discharge Plan Discharge Patient Disposition: Admitted As Inpatient Clinical Impression: Pneumonia, Leukocytosis, Pleural effusion, COPD with acute exacerbation Prescriptions: No Action metoprolol succinate 200 mg tablet extended release 24 hr 200 mg PO QAM pantoprazole 40 mg tablet,delayed release (DR/EC) 40 mg PO DAILY Vision Formula (E-G-D-Zn-jass) 4,296 mcg-226 mg-90 mg Capsule 1 cap PO QAM Lumigan 0.01 % drops 1 drp ophthalmic (eye) BEDTIME clonidine HCl 0.1 mg tablet 0.1 mg PO TID PRN (Reason: Blood Pressure) tramadol 50 mg tablet 100 mg PO QID PRN (Reason: Pain) simvastatin 40 mg tablet 40 mg PO DAILY tamsulosin 0.4 mg capsule 0.8 mg PO QAM gabapentin 300 mg capsule 300 mg PO TID finasteride 5 mg tablet 5 mg PO DAILY budesonide-formoterol [Symbicort] 160-4.5 mcg/actuation HFA aerosol inhaler 2 puff INHALATION BID albuterol sulfate 2.5 mg /3 mL (0.083 %) solution for nebulization 2.5 mg inhalation Q6H PRN (Reason: Shortness Of Breath Or Wheezing) amiodarone [Pacerone] 200 mg Tablet 400 mg PO DAILY Qty: 120 3RF Rx Instructions: 400 mg daily for 7 days then 200 mg daily to be continued` diltiazem HCl [Cardizem LA] 360 mg tablet extended release 24 hr 360 mg PO DAILY Qty: 90 4RF Eliquis 5 mg tablet 5 mg PO BID Qty: 60 6RF furosemide [Lasix] 20 mg tablet 20 mg PO DAILY PRN (Reason: Weight gain more than 3 pounds in 24 hours) Qty: 90 2RF potassium chloride 10 mEq tablet extended release 10 meq PO DAILY PRN (Reason: Only take when you take Lasix) Qty: 60 0RF Rx Instructions: Only take with Lasix Referrals: Caterina Barrett DO [Primary Care Provider] - Coding Level of Care Code ED Plug Drill Operator for Shemar Candelaria
[2023-06-29 12:46] LABS: ABG PCO2 44.7 mmHg (35-45); ABG PH Result 7.42 (7.35-7.45); Alveolar-Arterial Oxygen Gradi 17.3 mmHg (5-10); Base Excess ABG 3.5 mmol/L (-2.0-2.0); Blood Gas Allen Test Pos; Blood Gas Operator Identificat CAK; Blood Gas Sample Site Radial, right; Blood Gas Sample Type Arterial; HCO3 ABG 28.7 mmol/L (22-26); HGB O2 Sat 94.2 % (95-100); Ionized Calcium Level - ABG 1.3 mmol/L (1.1-1.4); Methemoglobin 0.2 % (0.4-1.5); Oxygen Device NC; Oxygen Saturation ABG 95.2; PO2 ABG 71.5 mmHg (80.0-100.0); PO2 FiO2 Ratio Arterial Blood 0; Potassium Level - ABG 4.5 mmol/L (3.5-5.0)
[2023-06-29 12:57] LABS: Basophils # 0.1 10^3/uL (0.0-0.1); Basophils % 0.4 %; Eosinophils # 0.2 10^3/uL (0.0-0.8); Eosinophils % 0.6 %; Hematocrit 45.1 % (37-53); Lymphocytes # 1.8 10^3/uL (0.8-4.8); Lymphocytes % 5.7 %; Mean Corpuscular HGB Conc 31.5 g/dL (30-55); Mean Corpuscular Hemoglobin 29.6 pg (27-33); Mean Corpuscular Volume 94.2 fl (82-101); Mean Platelet Volume 10.2 fL (7.4-10.4); Monocytes # 2.6 10^3/uL (0.2-0.9); Monocytes % 8.4 %; Neutrophils # 25.51 10^3/uL (1.8-7.7); Neutrophils % 82.5 %; Nucleated Red Blood Cells % 0 %; Platelet Count 521 10^3/cmm (157-399); Red Blood Count 4.79 10^6/uL (3.85-5.65); Red Cell Distribution Width 13.7 % (12.1-15.1)
[2023-06-29 13:01] LABS: White Blood Count 30.89 10^3/uL (3.29-11.43)
--- NOTE | 2023-06-29 13:06 | CTR_ITS ---
PROCEDURE INFORMATION: Exam: CT Chest Without Contrast; Diagnostic Exam date and time: 06/29/2023 1:42 PM Age: 77 years old Clinical indication: Shortness of breath; Additional info: Shortness of breath, chest pain, leukocytosis TECHNIQUE: Imaging protocol: Diagnostic computed tomography of the chest without contrast. Radiation optimization: All CT scans at this facility use at least one of these dose optimization techniques: automated exposure control; mA and/or kV adjustment per patient size (includes targeted exams where dose is matched to clinical indication); or iterative reconstruction. COMPARISON: CT angio chest PE protcl [id number] 06/16/2023 3:39 PM RADIATION DOSE METRICS: Total DLP (mGy-cm): 654.69 FINDINGS: Thyroid: 1.2 centimeters right thyroid nodule. Lungs: Central airways are patent, there is distal bronchial wall thickening and occlusion of the left posterior lower lobe subsegmental bronchi. Pleural spaces: Jnkrwvbk-xc-olxfk left-sided pleural effusion. No pneumothorax. Heart: There is a small pericardial effusion. Coronary arteries: There is moderate atherosclerotic calcification of the coronary arteries. Lymph nodes: 1 centimeter right paratracheal lymph node. Subcarinal calcified lymph node. Vasculature: Ascending aorta is normal size, are vascular atherosclerotic plaques. Kidneys and ureters: Nonspecific bilateral perinephric fat stranding. Bones/joints: Chronic compression deformity at T12 Soft tissues: Unremarkable. CT/CT chest wo con [id number] IMPRESSION: 1. Distal bronchial wall thickening and occlusion of the left posterior lower lobe subsegmental bronchi, with associated left lower medial atelectasis. Aspiration pneumonia can not be ruled out. 2. Bmbmlfjl-yq-mcgud left-sided pleural effusion with compressive atelectasis. 3. Enlarged right paratracheal lymph node. 4. 1.2 centimeters right thyroid nodule. 5. Small pericardial effusion. 6. Nonspecific perinephric fat stranding. COMMENTS: Consistent with the [employer]'s Incidental Findings Committee white paper ([employer] Wild Radiol 2015): In patients aged 35 years and older with an incidental thyroid nodule equal to or greater than 1.[address], MRI or extrathyroidal US, further evaluation with dedicated thyroid US is recommended for patients with normal life expectancy and without comorbidities. For smaller nodules without suspicious features, no further evaluation or follow up is recommended.
[2023-06-29 13:14] LABS: Lactic Sepsis W/Reflex 1.4 mmol/L (0.5-2.2)
[2023-06-29 13:18] LABS: Troponin(5th) Baseline 38 ng/L (0-15)
[2023-06-29 13:20] LABS: Alanine Aminotransferase 27 U/L (0-41); Albumin Level 3.6 g/dL (3.5-5.2); Alkaline Phosphatase 80 U/L (40-130); Aspartate Amino Transferase 20 U/L (0-40); Blood Urea Nitrogen 27 mg/dL (8-23); C Reactive Protein 35.7 mg/L (0.0-4.9); Calcium 9.3 mg/dL (8.5-10.5); Carbon Dioxide 30 mmol/L (22-29); Chloride 98 mmol/L (98-107); Globulin 4.2 g/dL (1.3-4.6); Glucose 131 mg/dL (65-115); Osmolality Calculated 293 mOsm/kg (285-295); Sodium 138 mmol/L (136-145); Total Bilirubin 0.3 mg/dL (0.15-1.2); Total Protein 7.8 g/dL (6.6-8.7)
[2023-06-29 13:25] LABS: Influenza A by IFA negative (Negative); Influenza B by IFA negative (Negative); SARS Covid-2 Antigen negative (Negative)
[2023-06-29] MEDS: ipratropium-albuterol 3 mL Neb INHALATION (13:50)
[2023-06-29] MEDS: albuterol 2.5 mg/3 mL Neb INHALATION (13:50)
[2023-06-29] MEDS: cefepime 2,000 MG in sodium chloride 0.9% (plus) 50 ML 100 MG IV (14:28)
[2023-06-29 14:49] LABS: Erythrocyte Sedimentation Rate 20 mm/hr (0-10)
[2023-06-29 14:58] LABS: C Reactive Protein 39.2 mg/L (0.0-4.9); Creatine Phosphokinase 50 U/L (39-308)
[2023-06-29 15:04] LABS: Procalcitonin 0.14 ng/mL (0-0.5)
[2023-06-29 15:07] LABS: Hepatitis A Antibody IgM Non-Reactive (Nonreactive); Hepatitis B Core IgM Non-Reactive (Nonreactive); Hepatitis C Virus Antibody Non-Reactive (Nonreactive)
--- NOTE | 2023-06-29 15:09 | CTR_ITS ---
PROCEDURE INFORMATION: Exam: CT Abdomen And Pelvis Without Contrast Exam date and time: 06/29/2023 3:21 PM Age: 77 years old Clinical indication: Other: Abdominal distention. Leukocytosis TECHNIQUE: Imaging protocol: Computed tomography of the abdomen and pelvis without contrast. Radiation optimization: All CT scans at this facility use at least one of these dose optimization techniques: automated exposure control; mA and/or kV adjustment per patient size (includes targeted exams where dose is matched to clinical indication); or iterative reconstruction. COMPARISON: CT abdomen pelvis con [id number] 06/17/2023 3:39 AM RADIATION DOSE METRICS: Total DLP (mGy-cm): 1010.01 FINDINGS: Pleural spaces: Large left lower lobe pleural effusion with compressive atelectasis. Heart: Small pericardial effusion. Liver: Normal. No mass. Gallbladder and bile ducts: Normal. No calcified stones. No ductal dilation. Pancreas: There is diffuse, benign fatty infiltration of the pancreas. Spleen: Normal. No splenomegaly. Adrenal glands: Normal. No mass. Kidneys and ureters: Bilateral nonspecific perinephric fat stranding. There is mild left-sided hydronephrosis. There is an obstructing stone at the proximal left ureter measuring 0.6 centimeters. This stone was previously seen at the left lower pole of the kidney. Stomach and bowel: Unremarkable. No obstruction. No mucosal thickening. Scattered colonic diverticula without any evidence of acute diverticulitis. Impression new Appendix: No evidence of appendicitis. Intraperitoneal space: Unremarkable. No free air. No significant fluid collection. Vasculature: Unremarkable. No abdominal aortic aneurysm. Lymph nodes: Unremarkable. No enlarged lymph nodes. Urinary bladder: Unremarkable as visualized. Reproductive: Enlarged prostate. Bones/joints: Chronic compression fracture of T12. Soft tissues: Unremarkable. Other findings: . CT/CT abdomen pelvis con [id number] IMPRESSION: 1. Bilateral nonspecific perinephric fat stranding. There is mild left-sided hydronephrosis. There is an obstructing stone at the proximal left ureter measuring 0.6 centimeters. 2. Diverticulosis without any evidence of acute diverticulitis. 3. Small pericardial effusion. 4. Large left-sided pleural effusion with compression atelectasis. Pneumonia can not be ruled out. 5. Prostatomegaly correlate with PSA levels.
[2023-06-29 15:17] LABS: HIV 1 & 2 Antibody Non-Reactive (Non-Reactiv); HIV 1 & 2 Antigen Non-Reactive (Non-Reactiv)
--- NOTE | 2023-06-29 15:31 | PC.NURSE ---
vanc delayed due to other cefipime running slow and pt being in CT when it finished.
[2023-06-29] MEDS: vancomycin 2,000 MG/400 ML PIGGYBACK 200 MG IV (15:33)
--- NOTE | 2023-06-29 16:10 | P.TS_ITS ---
Transfer Summary Providers Date of Discharge/Transfer: 06/29/23 Primary Care Provider: Caterina Barrett DO Transfer Plans: Anticipated date of transfer: 06/29/23 . Reason for Visit Reason for Visit CHEST PAIN Hospital Course Hospital Course This is a 77-year-old male, with a past medical history of atrial fibrillation, on Eliquis, on amiodarone, hypertension, hyperlipidemia, obesity, history of abdominal hernia, recent hospitalization for A-fib, history of sepsis and pneumonia who presents to [facility] as since his hospital discharge he has been feeling unwell increasing short of breath increasingly weak, he does report bilateral extremity edema he does indeed have 2+ pitting edema bilateral extremities, he does complain of increased abdominal distention but he tells me his abdomen is always distended and he has an abdominal hernia in place it is reducible he also has umbilical hernia which is reducible, he does complain of some back pain and some flank pain bilaterally, but nothing really out of the ordinary no dysuria, hematuria, no nausea, no vomiting the reason he came to the emergency room was chest discomfort, he tells me he hurts all over his chest, does not radiate anywhere, does not radiate to his neck, he does not really have a cough he tells me he surprised that the CAT scan shows that he has a pneumonia, does not complain of any fevers, any chills, we discussed his initial troponin of 38, EKG shows atrial fibrillation, we discussed his CT chest findi ngs which shows distal bronchial wall thickening, and occlusion of the left posterior lower lobe and subsegmental bronchi, associate with left lower medial atelectasis, denies any coughing no choking, he does have a moderate to large pleural effusion with compressive atelectasis likely component of his shortness of breath, however on examination his abdomen is grossly distended, no guarding, rebound, rigidity, he does have some nonspecific tenderness in bilateral flanks, he has white count of 30,000, I have ordered a respiratory viral panel Pro-Torrey, CRP, recommend blood cultures, I had a detailed discussion with him that certainly I think a component of his symptomatology could be pneumonia specially given the CAT scan results, however his white count is 30,000 he does not really complain any fevers or chills or any cough, my immediate worry would be the abdomen as he has a history of diverticulitis and not too long ago, denies any lack of stooling no bloody or black stools, he is agreeable will order CAT scan of the belly and based upon these findings, we will decide if he can be admitted here at [facility], he is already received cefepime and vancomycin, but nonetheless he will eventually need a bronchoscopy, given his CAT scan findings, occlusion of the left posterior lower lobe and subsegmental bronchi will need speech therapy eval unfortunately do not have pulmonary available here at [facility], our functional tester comes back on: Saturday, he is on 4 L if he did need to have an immediate bronchoscopy unfortunately we would not have that available here at [facility], so that certainly could be an indication for him to be transferred for tertiary level center for evaluation given his significant leukocytosis but certainly we can see how he responds to antibiotics -CAT scan of the abdomen shows CT/CT abdomen pelvis wo con [id number] IMPRESSION: 1. Bilateral nonspecific perinephric fat stranding. There is mild left-sided hydronephrosis. There is an obstructing stone at the proximal left ureter measuring 0.6 centimeters. 2. Diverticulosis without any evidence of acute diverticulitis. 3. Small pericardial effusion. 4. Large left-sided pleural effusion with compression atelectasis. Pneumonia can not be ruled out. 5. Prostatomegaly correlate with PSA levels. -Given that he has bilateral perinephric stranding, and he has mild sided left- sided hydronephrosis, and obstructing stone at the proximal left ureter measuring at 6 mm, unfortunately do not have urology coverage here at [facility], given his elevated white blood cell count of 30,000, his elevated creatinine, would recommend for him to be transferred to tertiary level center where urology Is available, as I believe the patient has a stent placement, and he is monitoring, and given his pulmonary findings, he will likely also need immediate pulmonary evaluation, nonetheless I recommend patient to be transferred to tertiary level center where specialist are immediately available including urology, and pulmonary, I have conveyed this to ER provider will work on transferring patient to tertiary level center Physical Exam Const: COMMON NORMALS: no acute distress and patient oriented x3 Resp: COMMON NORMALS: normal respiratory effort, No retractions, No use of accessory muscles and clear to auscultation bilaterally AUSCULTATION: clear to auscultation bilaterally Cardio: COMMON NORMALS: regular rate, regular rhythm, S1 normal heart sound present and S2 normal heart sound present RATE: regular rate RHYTHM: regular rhythm HEART SOUNDS: S1 normal heart sound present and S2 normal heart sound present GI: OTHER: Abdomen is soft, distended, good bowel sounds in all 4 quadrants, no guarding, rebound, rigidity, does have bilateral CVA tenderness, abdominal wall hernia present, umbilical hernia present Extremity: COMMON NORMALS: no pedal edema Neuro: COMMON NORMALS: patient oriented x3 Psych: COMMON NORMALS: mental status grossly normal TS Data Studies Completed and Pending Pending at discharge Category Date Time Status HEP ACUTE [Hepatitis Acute Panel] Routine Lab 06/29/23 12:50 Results Respiratory Panel 2 Routine Lab 06/29/23 13:51 Received Troponin(5th) 2 Hour. Timed Lab 06/29/23 14:36 Ordered Urinalysis Stat Lab 06/29/23 15:28 Results Completed Studies During Hospitalization Category Date Time Status CT abdomen pelvis wo con [id number] Stat Cat Scan 06/29/23 15:[address] chest wo con [id number] Stat Cat Scan 06/29/23 13:06 Completed XR chest 1V [id number] Stat Exams 06/29/23 12:35 Completed Laboratory Last Values WBC 30.89 10^3/uL (3.29-11.43) H* 06/29/23 12:50 RBC 4.79 10^6/uL (3.85-5.65) 06/29/23 12:50 Hgb 14.20 g/dL (11.27-16.99) 06/29/23 12:50 Hct 45.1 % (37-53) 06/29/23 12:50 MCV 94.2 fl (82-101) 06/29/23 12:50 MCH 29.6 pg (27-33) 06/29/23 12:50 MCHC 31.5 g/dL (30-55) 06/29/23 12:50 RDW 13.7 % (12.1-15.1) 06/29/23 12:50 Plt Count 521 10^3/cmm (157-399) H 06/29/23 12:50 MPV 10.2 fL (7.4-10.4) 06/29/23 12:50 Neut % (Auto) 82.5 % 06/29/23 12:50 Lymph % (Auto) 5.7 % 06/29/23 12:50 [place] % (Auto) 8.4 % 06/29/23 12:50 Eos % (Auto) 0.6 % 06/29/23 12:50 Baso % (Auto) 0.4 % 06/29/23 12:50 Neut # (Auto) 25.51 10^3/uL (1.8-7.7) H 06/29/23 12:50 Lymph # (Auto) 1.8 10^3/uL (0.8-4.8) 06/29/23 12:50 [place] # (Auto) 2.6 10^3/uL (0.2-0.9) H 06/29/23 12:50 Eos # (Auto) 0.2 10^3/uL (0.0-0.8) 06/29/23 12:50 Baso # (Auto) 0.1 10^3/uL (0.0-0.1) 06/29/23 12:50 Nucleated RBC % (auto) 0 % 06/29/23 12:50 Nucleated RBCs # 0.0 /100WBC 06/29/23 12:50 ESR 20 mm/hr (0-10) H 06/29/23 12:50 Specimen Type Arterial 06/29/23 12:34 Sample Site Radial, right 06/29/23 12:34 ABG pH 7.42 (7.35-7.45) 06/29/23 12:34 ABG pCO2 44.7 mmHg (35-45) 06/29/23 12:34 ABG pO2 71.5 mmHg (80.0-100.0) L 06/29/23 12:34 ABG PO2/FiO2 Ratio 0 06/29/23 12:34 ABG HCO3 28.7 mmol/L (22-26) H 06/29/23 12:34 ABG O2 Saturation 95.2 06/29/23 12:34 ABG Base Excess 3.5 mmol/L (-2.0-2.0) H 06/29/23 12:34 Sam Test Pos 06/29/23 12:34 A-a O2 Gradient 17.3 mmHg (5-10) H 06/29/23 12:34 Hematocrit 43.0 % (42-52) 06/29/23 12:34 Hgb O2 Saturation 94.2 % (95-100) L 06/29/23 12:34 Carboxyhemoglobin 1.0 %THgb (0.4-20.1) 06/29/23 12:34 Methemoglobin 0.2 % (0.4-1.5) L 06/29/23 12:34 Total Hemoglobin 14.0 g/dL (14-18) 06/29/23 12:34 Sodium 140.0 mmol/L (131-143) 06/29/23 12:34 Potassium 4.5 mmol/L (3.5-5.0) 06/29/23 12:34 Glucose 123.0 mg/dL (70-115) H 06/29/23 12:34 Ionized Calcium 1.3 mmol/L (1.1-1.4) 06/29/23 12:34 O2 Delivery Device Nc 06/29/23 12:34 O2 Liters/Min 4.0 % 06/29/23 12:34 FiO2 36.0 % 06/29/23 12:34 Senior Infrastructure Architect ID Cak 06/29/23 12:34 Sodium 138 mmol/L (136-145) 06/29/23 12:50 Potassium 5.0 mmol/L (3.5-5.1) 06/29/23 12:50 Chloride 98 mmol/L (98-107) 06/29/23 12:50 Carbon Dioxide 30 mmol/L (22-29) H 06/29/23 12:50 Anion Gap 15.0 (5-19) 06/29/23 12:50 BUN 27 mg/dL (8-23) H 06/29/23 12:50 Creatinine 1.5 mg/dL (0.7-1.2) H 06/29/23 12:50 GFR Calculation Not Reportable 06/29/23 12:50 Glucose 131 mg/dL (65-115) H 06/29/23 12:50 Calculated Osmolality 293 mOsm/kg (285-295) 06/29/23 12:50 Lactic Acid 1.4 mmol/L (0.5-2.2) 06/29/23 12:50 Calcium 9.3 mg/dL (8.5-10.5) 06/29/23 12:50 Total Bilirubin 0.3 mg/dL (0.15-1.2) 06/29/23 12:50 AST 20 U/L (0-40) 06/29/23 12:50 ALT 27 U/L (0-41) 06/29/23 12:50 Alkaline Phosphatase 80 U/L (40-130) 06/29/23 12:50 Creatine Kinase 50 U/L (39-308) 06/29/23 12:50 Troponin T Baseline 38 ng/L (0-15) H 06/29/23 12:50 C-Reactive Protein 35.7 mg/L (0.0-4.9) H 06/29/23 12:50 C-Reactive Protein 39.2 mg/L (0.0-4.9) H 06/29/23 12:50 Total Protein 7.8 g/dL (6.6-8.7) 06/29/23 12:50 Albumin 3.6 g/dL (3.5-5.2) 06/29/23 12:50 Globulin 4.2 g/dL (1.3-4.6) 06/29/23 12:50 Procalcitonin 0.14 ng/mL (0-0.5) 06/29/23 12:50 Hepatitis A IgM Ab Non-reactive (Nonreactive) 06/29/23 12:50 Hep B Core IgM Ab Non-reactive (Nonreactive) 06/29/23 12:50 Hepatitis C Antibody Non-reactive (Nonreactive) 06/29/23 12:50 HIV 1&2 Ab & HIV 1 Ag Non-reactive (Non-Reactiv) 06/29/23 12:50 HIV 1&2 Antibody Non-reactive (Non-Reactiv) 06/29/23 12:50 Influenza Type A Ag negative (Negative) 06/29/23 13:03 Influenza Type B Ag negative (Negative) 06/29/23 13:03 SARS-CoV-2 Ag (Rapid) negative (Negative) 06/29/23 13:03 Radiology Impressions Chest X-Ray 06/29/23 12:35 IMPRESSION: No acute findings. Chest CT 06/29/23 13:06 IMPRESSION: 1. Distal bronchial wall thickening and occlusion of the left posterior lower lobe subsegmental bronchi, with associated left lower medial atelectasis. Aspiration pneumonia can not be ruled out. 2. Gywktxjd-[id number] left-sided pleural effusion with compressive atelectasis. 3. Enlarged right paratracheal lymph node. 4. 1.2 centimeters right thyroid nodule. 5. Small pericardial effusion. 6. Nonspecific perinephric fat stranding. COMMENTS: Consistent with the [employer]'s Incidental Findings Committee white paper (J Am Wild Radiol 2015): In patients aged 35 years and older with an incidental thyroid nodule equal to or greater than 1.[address], MRI or extrathyroidal US, further evaluation with dedicated thyroid US is recommended for patients with normal life expectancy and without comorbidities. For smaller nodules without suspicious features, no further evaluation or follow up is recommended. Abdomen/Pelvis CT 06/29/23 15:09 IMPRESSION: 1. Bilateral nonspecific perinephric fat stranding. There is mild left-sided hydronephrosis. There is an obstructing stone at the proximal left ureter measuring 0.6 centimeters. 2. Diverticulosis without any evidence of acute diverticulitis. 3. Small pericardial effusion. 4. Large left-sided pleural effusion with compression atelectasis. Pneumonia can not be ruled out. 5. Prostatomegaly correlate with PSA levels. Recent Clincial Data Last Vital Signs Temp 98.3 F 06/29/23 12:37 Pulse 99 06/29/23 13:53 Resp 20 H 06/29/23 13:51 BP 149/89 06/29/23 13:34 Pulse Ox 97 06/29/23 13:51 O2 Del Method Nasal Cannula 06/29/23 13:51 O2 Flow Rate 3 06/29/23 13:51 Vital Signs Temp Pulse Resp BP Pulse Ox O2 Del Method O2 Flow Rate 06/29/23 13:53 99 06/29/23 13:51 106 H 20 H 97 Nasal Cannula 3 06/29/23 13:34 60 18 149/89 95 Nasal Cannula 4 06/29/23 12:37 98.3 F 57 L 20 H 149/89 95 Nasal Cannula 4 Intake & Output/Weight 06/27/23 06/28/23 06/29/23 06/30/23 06:59 06:59 06:59 06:59 Intake Total 50 / 50 Balance 50 / 50 Weight 90.718 kg Vitals Last Vital Signs Temp 98.3 F 06/29/23 12:37 Pulse 99 06/29/23 13:53 Resp 20 H 06/29/23 13:51 BP 149/89 06/29/23 13:34 Pulse Ox 97 06/29/23 13:51 O2 Del Method Nasal Cannula 06/29/23 13:51 O2 Flow Rate 3 06/29/23 13:51 TS Medications Medications Discontinued Medications Albuterol Sulfate (Albuterol 2.5 Mg/3 Ml Neb) 2.5 mg INHALATION ONCE ONE Stop: 06/29/23 12:36 Last Admin: 06/29/23 13:50 Dose: 2.5 mg Albuterol/Ipratropium (Ipratropium-Albuterol 3 Ml Neb) 3 ml INHALATION ONCE ONE Stop: 06/29/23 12:36 Last Admin: 06/29/23 13:50 Dose: 3 ml Cefepime HCl 2,000 mg/ Sodium (Chloride) 50 mls @ 100 mls/hr IV ONCE ONE; Protocol Stop: 06/29/23 14:25 Last Infusion: 06/29/23 15:41 Dose: Infused Vancomycin/PEG/NADA/Lysine/Water (Vancocin) 2,000 mg in 400 mls @ 200 mls/hr IV ONCE ONE; Protocol Stop: 06/29/23 15:55 Last Admin: 06/29/23 15:33 Dose: 200 mls/hr Allergies Alpha-Gal (Grrficsvy-Yyern-7,3-Gala Allergy (Severe, Verified 06/16/23 18:08) ALGY-Rash welts lisinopril Allergy (Verified 06/16/23 13:04) ADR-Fainting Home Medications budesonide-formoterol HFA 160 mcg-4.5 mcg/actuation aerosol inhaler (Symbicort) 2 puff inhalation BID 11/02/21 [History Confirmed 06/29/23] clonidine HCl 0.1 mg tablet 0.1 mg PO TID PRN Blood Pressure 11/02/21 [History Confirmed 06/29/23] finasteride 5 mg tablet 5 mg PO DAILY 11/02/21 [History Confirmed 06/29/23] gabapentin 300 mg capsule 300 mg PO TID 11/02/21 [History Confirmed 06/29/23] simvastatin 40 mg tablet 40 mg PO DAILY 11/02/21 [History Confirmed 06/29/23] tamsulosin 0.4 mg capsule 0.8 mg PO QAM 11/02/21 [History Confirmed 06/29/23] tramadol 50 mg tablet 100 mg PO QID PRN Pain 11/02/21 [History Confirmed 06/29/23] albuterol sulfate 2.5 mg/3 mL (0.083 %) solution for nebulization 2.5 mg inhalation Q6H PRN Shortness Of Breath Or Wheezing 06/16/23 [History Confirmed 06/29/23] amiodarone 200 mg tablet (Pacerone) 400 mg (2 x 200 mg) PO DAILY #120 tabs 06/21/23 [Rx Confirmed 06/29/23] apixaban 5 mg tablet (Eliquis) 5 mg PO BID #60 tabs 06/21/23 [Rx Confirmed 06/29/23] diltiazem HCl 360 mg tablet,extended release 24 hr (Cardizem LA) 360 mg PO DAILY #90 tabs 06/21/23 [Rx Confirmed 06/29/23] furosemide 20 mg tablet (Lasix) 20 mg PO DAILY PRN Weight gain more than 3 pounds in 24 hours #90 tabs 06/21/23 [Rx Confirmed 06/29/23] potassium chloride 10 mEq tablet,extended release 10 meq PO DAILY PRN Only take when you take Lasix #60 tabs 06/21/23 [Rx Confirmed 06/29/23] bimatoprost 0.01 % eye drops (Lumigan) 1 drp ophthalmic (eye) BEDTIME 06/29/23 [History Confirmed 06/29/23] metoprolol succinate 200 mg tablet,extended release 24 hr 200 mg PO QAM 06/29/23 [History Confirmed 06/29/23] pantoprazole 40 mg tablet,delayed release 40 mg PO DAILY 06/29/23 [History Confirmed 06/29/23] vitamins A,C,D-dbxn-loirqm 4,296 mcg-226 mg-90 mg capsule 1 cap PO QAM 06/29/23 [History Confirmed 06/29/23] Discharge Plan Discharge Patient Disposition: Admitted As Inpatient Clinical Impression: Pneumonia, Leukocytosis, Pleural effusion, COPD with acute exacerbation Condition: Stable Transfer Attestations Time Spent in Transfer Care: greater than 30 min Quality Metrics Clinical Quality Measures [ No reported AMI, CVA or VTE this stay] Coding Level of Care Code Acute Code for Chg Bari
[2023-06-29 16:24] LABS: Hepatitis B Surface Antigen Non-Reactive (Nonreactive)
--- NOTE | 2023-06-29 16:41 | ED_ITS ---
HPI - Chest Pain 2 General: Chief Complaint: Chest Pain Stated Complaint: CHEST PAIN Time Seen by Provider: 06/29/23 12:31 [facility] ED 2 PFSH: Medical History History of stroke Hyperlipidemia Hypertension Surgical History H/O right knee surgery History of ankle surgery History of esophagogastroduodenoscopy (EGD) No significant past surgical history Family History Father CAD (coronary artery disease) Diabetes Mother CAD (coronary artery disease) Sister Cancer Denies family history of Hypertension Social History Smoking and tobacco/nicotine status: former use of tobacco/nicotine Quit status (tobacco/nicotine): has quit using Year quit tobacco: 2022 Former quit date comment: smoked up to 2 pack per day x 61 years Alcohol intake: former Year of sobriety/quit date alcohol: 2013 Substance/Drug Use: never Household members: spouse Housing: House Marital status: Number of children: 4 Pets and animals: No Course 2 Vital Signs: Vital signs: Vital Signs Temperature 98.3 F 06/29/23 20:40 Pulse Rate 74 06/29/23 20:40 Respiratory Rate 23 H 06/29/23 20:40 Blood Pressure 131/78 06/29/23 20:40 Pulse Oximetry 95 06/29/23 20:40 Oxygen Delivery Me thod Nasal Cannula 06/29/23 20:06 Oxygen Flow Rate 4 06/29/23 20:06 MDM - Chest Pain Lab Data 06/29/23 12:50 06/29/23 12:50 Radiology Impressions Chest X-Ray 06/29/23 12:35 IMPRESSION: No acute findings. Chest CT 06/29/23 13:06 IMPRESSION: 1. Distal bronchial wall thickening and occlusion of the left posterior lower lobe subsegmental bronchi, with associated left lower medial atelectasis. Aspiration pneumonia can not be ruled out. 2. Kofkydis-dn-uvtlz left-sided pleural effusion with compressive atelectasis. 3. Enlarged right paratracheal lymph node. 4. 1.2 centimeters right thyroid nodule. 5. Small pericardial effusion. 6. Nonspecific perinephric fat stranding. COMMENTS: Consistent with the [employer]'s Incidental Findings Committee white paper (J Am Wild Radiol 2015): In patients aged 35 years and older with an incidental thyroid nodule equal to or greater than 1.[address], MRI or extrathyroidal US, further evaluation with dedicated thyroid US is recommended for patients with normal life expectancy and without comorbidities. For smaller nodules without suspicious features, no further evaluation or follow up is recommended. Abdomen/Pelvis CT 06/29/23 15:09 IMPRESSION: 1. Bilateral nonspecific perinephric fat stranding. There is mild left-sided hydronephrosis. There is an obstructing stone at the proximal left ureter measuring 0.6 centimeters. 2. Diverticulosis without any evidence of acute diverticulitis. 3. Small pericardial effusion. 4. Large left-sided pleural effusion with compression atelectasis. Pneumonia can not be ruled out. 5. Prostatomegaly correlate with PSA levels. Laboratory Results WBC 30.89 10^3/uL (3.29-11.43) H* 06/29/23 12:50 RBC 4.79 10^6/uL (3.85-5.65) 06/29/23 12:50 Hgb 14.20 g/dL (11.27-16.99) 06/29/23 12:50 Hct 45.1 % (37-53) 06/29/23 12:50 MCV 94.2 fl (82-101) 06/29/23 12:50 MCH 29.6 pg (27-33) 06/29/23 12:50 MCHC 31.5 g/dL (30-55) 06/29/23 12:50 RDW 13.7 % (12.1-15.1) 06/29/23 12:50 Plt Count 521 10^3/cmm (157-399) H 06/29/23 12:50 MPV 10.2 fL (7.4-10.4) 06/29/23 12:50 Neut % (Auto) 82.5 % 06/29/23 12:50 Lymph % (Auto) 5.7 % 06/29/23 12:50 [place] % (Auto) 8.4 % 06/29/23 12:50 Eos % (Auto) 0.6 % 06/29/23 12:50 Baso % (Auto) 0.4 % 06/29/23 12:50 Neut # (Auto) 25.51 10^3/uL (1.8-7.7) H 06/29/23 12:50 Lymph # (Auto) 1.8 10^3/uL (0.8-4.8) 06/29/23 12:50 [place] # (Auto) 2.6 10^3/uL (0.2-0.9) H 06/29/23 12:50 Eos # (Auto) 0.2 10^3/uL (0.0-0.8) 06/29/23 12:50 Baso # (Auto) 0.1 10^3/uL (0.0-0.1) 06/29/23 12:50 Nucleated RBC % (auto) 0 % 06/29/23 12:50 Nucleated RBCs # 0.0 /100WBC 06/29/23 12:50 ESR 20 mm/hr (0-10) H 06/29/23 12:50 Specimen Type Arterial 06/29/23 12:34 Sample Site Radial, right 06/29/23 12:34 ABG pH 7.42 (7.35-7.45) 06/29/23 12:34 ABG pCO2 44.7 mmHg (35-45) 06/29/23 12:34 ABG pO2 71.5 mmHg (80.0-100.0) L 06/29/23 12:34 ABG PO2/FiO2 Ratio 0 06/29/23 12:34 ABG HCO3 28.7 mmol/L (22-26) H 06/29/23 12:34 ABG O2 Saturation 95.2 06/29/23 12:34 ABG Base Excess 3.5 mmol/L (-2.0-2.0) H 06/29/23 12:34 Sam Test Pos 06/29/23 12:34 A-a O2 Gradient 17.3 mmHg (5-10) H 06/29/23 12:34 Hematocrit 43.0 % (42-52) 06/29/23 12:34 Hgb O2 Saturation 94.2 % (95-100) L 06/29/23 12:34 Carboxyhemoglobin 1.0 %THgb (0.4-20.1) 06/29/23 12:34 Methemoglobin 0.2 % (0.4-1.5) L 06/29/23 12:34 Total Hemoglobin 14.0 g/dL (14-18) 06/29/23 12:34 Sodium 140.0 mmol/L (131-143) 06/29/23 12:34 Potassium 4.5 mmol/L (3.5-5.0) 06/29/23 12:34 Glucose 123.0 mg/dL (70-115) H 06/29/23 12:34 Ionized Calcium 1.3 mmol/L (1.1-1.4) 06/29/23 12:34 O2 Delivery Device Nc 06/29/23 12:34 O2 Liters/Min 4.0 % 06/29/23 12:34 FiO2 36.0 % 06/29/23 12:34 Photo Tech ID Cak 06/29/23 12:34 Sodium 138 mmol/L (136-145) 06/29/23 12:50 Potassium 5.0 mmol/L (3.5-5.1) 06/29/23 12:50 Chloride 98 mmol/L (98-107) 06/29/23 12:50 Carbon Dioxide 30 mmol/L (22-29) H 06/29/23 12:50 Anion Gap 15.0 (5-19) 06/29/23 12:50 BUN 27 mg/dL (8-23) H 06/29/23 12:50 Creatinine 1.5 mg/dL (0.7-1.2) H 06/29/23 12:50 GFR Calculation Not Reportable 06/29/23 12:50 Glucose 131 mg/dL (65-115) H 06/29/23 12:50 Calculated Osmolality 293 mOsm/kg (285-295) 06/29/23 12:50 Lactic Acid 1.4 mmol/L (0.5-2.2) 06/29/23 12:50 Calcium 9.3 mg/dL (8.5-10.5) 06/29/23 12:50 Total Bilirubin 0.3 mg/dL (0.15-1.2) 06/29/23 12:50 AST 20 U/L (0-40) 06/29/23 12:50 ALT 27 U/L (0-41) 06/29/23 12:50 Alkaline Phosphatase 80 U/L (40-130) 06/29/23 12:50 Creatine Kinase 50 U/L (39-308) 06/29/23 12:50 Troponin T Baseline 38 ng/L (0-15) H 06/29/23 12:50 Troponin T 120 Minute 34.72 ng/L (0-15) H 06/29/23 17:16 Delta Troponin T -3.28 ABS# (0-10) L 06/29/23 17:16 C-Reactive Protein 35.7 mg/L (0.0-4.9) H 06/29/23 12:50 C-Reactive Protein 39.2 mg/L (0.0-4.9) H 06/29/23 12:50 Total Protein 7.8 g/dL (6.6-8.7) 06/29/23 12:50 Albumin 3.6 g/dL (3.5-5.2) 06/29/23 12:50 Globulin 4.2 g/dL (1.3-4.6) 06/29/23 12:50 Procalcitonin 0.14 ng/mL (0-0.5) 06/29/23 12:50 Urine Color Yellow (Yellow) 06/29/23 15:28 Urine Appearance Clear (CLEAR) 06/29/23 15:28 Urine pH 5 (5-7) 06/29/23 15:28 Ur Specific [place] 1.015 (1.005-1.030) 06/29/23 15:28 Urine Protein 1+ (Negative) H 06/29/23 15:28 Urine Glucose (UA) Norm (Normal) 06/29/23 15:28 Urine Ketones Negative (Negative) 06/29/23 15:28 Urine Blood 3+ (Negative) H 06/29/23 15:28 Urine Nitrate Negative (Negative) 06/29/23 15:28 Urine Bilirubin Neg (Negative) 06/29/23 15:28 Urine Urobilinogen Norm mg/dL (Negative) 06/29/23 15:28 Ur Leukocyte Esterase Trace (Negative) H 06/29/23 15:28 Urine RBC Rare /hpf (0-2) 06/29/23 15:28 Urine WBC 0-4 /hpf (0-5) H 06/29/23 15:28 Ur Squamous Epith Cells None /hpf (0-5) 06/29/23 15:28 Amorphous Sediment Not Reportable 06/29/23 15:28 Urine Bacteria 1+ /hpf (NONE) H 06/29/23 15:28 Adenovirus (PCR) Not detected (NOT DETECT) 06/29/23 13:51 C. pneumoniae DNA (PCR) Not detected (NOT DETECT) 06/29/23 13:51 Coronavirus 229E (PCR) Not detected (NOT DETECT) 06/29/23 13:51 Hepatitis A IgM Ab Non-reactive (Nonreactive) 06/29/23 12:50 Hep Bs Antigen Non-reactive (Nonreactive) 06/29/23 12:50 Hep B Core IgM Ab Non-reactive (Nonreactive) 06/29/23 12:50 Hepatitis C Antibody Non-reactive (Nonreactive) 06/29/23 12:50 HIV 1&2 Ab & HIV 1 Ag Non-reactive (Non-Reactiv) 06/29/23 12:50 HIV 1&2 Antibody Non-reactive (Non-Reactiv) 06/29/23 12:50 Human Metapneumovir PCR Not detected (NOT DETECT) 06/29/23 13:51 Influenza A (H1) PCR Not detected (NOT DETECT) 06/29/23 13:51 Influ A (H1/09) PCR Not detected (NOT DETECT) 06/29/23 13:51 Influenza A (H3) PCR Not detected (NOT DETECT) 06/29/23 13:51 Influenza Type A Ag negative (Negative) 06/29/23 13:03 Influenza Type A (PCR) Not detected (NOT DETECT) 06/29/23 13:51 Influenza Type B Ag negative (Negative) 06/29/23 13:03 Influenza Type B (PCR) Not detected (NOT DETECT) 06/29/23 13:51 M. pneumoniae (PCR) Not detected (NOT DETECT) 06/29/23 13:51 Parainfluenza 1 (PCR) Not detected (NOT DETECT) 06/29/23 13:51 Parainfluenza 2 (PCR) Not detected (NOT DETECT) 06/29/23 13:51 Parainfluenza 3 (PCR) Not detected (NOT DETECT) 06/29/23 13:51 Parainfluenza 4 (PCR) Not detected (NOT DETECT) 06/29/23 13:51 RSV Type A (PCR) Not detected (NOT DETECT) 06/29/23 13:51 RSV Type B (PCR) Not detected (NOT DETECT) 06/29/23 13:51 Entero/Rhino (PCR) Not detected (NOT DETECT) 06/29/23 13:51 SARS-CoV-2 (PCR) Not detected (NOT DETECT) 06/29/23 13:51 SARS-CoV-2 Ag (Rapid) negative (Negative) 06/29/23 13:03 No radiology studies performed this visit Discharge Plan Discharge Patient Disposition: Admitted As Inpatient Clinical Impression: Pneumonia, Leukocytosis, Pleural effusion, COPD with acute exacerbation Condition: Stable Coding Level of Care Code ED [employer] for Shemar Candelaria
[2023-06-29 16:59] LABS: Adenovirus Not Detected (NOT DETECT); Chlamydia Pneumoniae Not Detected (NOT DETECT); Coronavirus 229E,HKU1,NL63,OC4 Not Detected (NOT DETECT); Human Metapneumovirus Not Detected (NOT DETECT); Human Rhinovirus/Enterovirus Not Detected (NOT DETECT); Influenza A Not Detected (NOT DETECT); Influenza A H1 Not Detected (NOT DETECT); Influenza A H1-2009 Not Detected (NOT DETECT); Influenza A H3 Not Detected (NOT DETECT); Influenza B Not Detected (NOT DETECT); Mycoplasma Pneumoniae Not Detected (NOT DETECT); Parainfluenza Virus Type 1 Not Detected (NOT DETECT); Parainfluenza Virus Type 2 Not Detected (NOT DETECT); Parainfluenza Virus Type 3 Not Detected (NOT DETECT); Parainfluenza Virus Type 4 Not Detected (NOT DETECT); Respiratory Syncytial Virus A Not Detected (NOT DETECT); Respiratory Syncytial Virus B Not Detected (NOT DETECT); SARS-COV-2 Not Detected (NOT DETECT)
[2023-06-29 17:08] LABS: Bilirubin Urine Neg (Negative); Blood Urine 3+ (Negative); Glucose Urine UA Norm (Normal); Ketones Urine Negative (Negative); Leukocyte Esterase Urine Trace (Negative); Nitrate Urine Negative (Negative); Protein Urine 1+ (Negative); Specific Gravity, Urine 1.015 (1.005-1.030); Urine Appearance Clear (CLEAR); Urine Color Yellow (Yellow); Urobilinogen Urine Norm (Negative); pH Urine 5 (5-7)
[2023-06-29 17:09] LABS: Add Urine Culture? No; Add Urine Microscopic? YES; Bacteria Urine 1+ /hpf; RBC Urine RARE /hpf (0-2); WBC Urine 0-4 /hpf (0-5)
[2023-06-29 18:12] LABS: Troponin 5 2HR 34.72 ng/L (0-15)
[2023-06-29 18:16] LABS: Troponin 5 2HR Delta -3.28 ABS# (0-10)
== END 2023-06-29 20:41 | disposition admitted as inpatient to this hospital (09) ==
LOC: ER 14:41 → MEDSURG 15:23 → ER 16:19
PROVIDERS: Family Medicine; Emergency Provider Emergency Medicine; PCP Family Medicine
DX: J44.0 Chronic obstructive pulmonary disease with (acute) lower respiratory infection (principal); J18.9 Pneumonia, unspecified organism; J44.1 Chronic obstructive pulmonary disease with (acute) exacerbation; D72.829 Elevated white blood cell count, unspecified; J90 Pleural effusion, not elsewhere classified; Z79.01 Long term (current) use of anticoagulants; Z11.52 Encounter for screening for COVID-19; E78.5 Hyperlipidemia, unspecified; I10 Essential (primary) hypertension; Z86.73 Personal history of transient ischemic attack (TIA), and cerebral infarction without residual deficits; Z87.891 Personal history of nicotine dependence; N13.2 Hydronephrosis with renal and ureteral calculous obstruction
CPT/HCPCS: 36415; 36600; 71045; 71250; 74176; 80051; 80053; 80074; 81001; 82330; 82550; 82805; 83605; 84145; 84484; 85025; 85651; 86140; 87040; 87426; 87486; 87581; 87633; 87804; 87806; 93005; 94640; 96365; 96366; 96367; 99285; J0692; J3372; J7613

== ENCOUNTER → 2023-07-31 14:17 | Outpatient (BNVA) | payer MEDICARE, MEDICAID, SELFPAY | PROVIDERS: PCP Family Medicine; Visit Provider Nurse Practitioner Family | DX: I48.91 Unspecified atrial fibrillation (principal) | CPT/HCPCS: 93005; 99213 ==

== ENCOUNTER 2023-09-06 12:25 | Inpatient (IN) | payer MEDICARE, MEDICAID, SELFPAY ==
[2023-09-06] VITALS (11 sets, daily range): BP systolic 94–142; BP diastolic 54–85; PULSE 84–110; RESP 15–16; TEMP 36.7; O2SAT 91–98; BMI 26.2
--- NOTE | 2023-09-06 12:40 | XR_ITS ---
WS: [id number] PORTABLE CHEST HISTORY: dizziness COMPARISON: 06/29/2023 New small RIGHT pleural effusion. Fluid extends into the RIGHT fissure. There is also mild fluid over load. No LEFT pleural effusion. No pneumonia. No pneumothorax. Cardiac size: Normal. Mediastinum/Aorta: Mild atherosclerosis aorta. No osseous abnormality seen. IMPRESSION: 1. New small RIGHT pleural effusion. 2. Mild pulmonary edema.
--- NOTE | 2023-09-06 12:46 | ED_ITS ---
HPI - General Adult 2 General: Chief complaint: Dizziness Stated complaint: dizzy Time Seen by Provider: 09/06/23 12:39 History of Present Illness: 77-year-old male presents emergency depa rtment with complaints of intermittent low blood pressure and dizziness. He states that he has been to his primary care provider and they have discontinued his metoprolol and they did this approximately 1 month ago. He states that he has been recording his blood pressure and presents a blood pressure log that demonstrates a average systolic blood pressure ranging between 112 and 139. He states that it seems like when he first gets up in the morning that his blood pressure is low. He states his atrial fibrillation generally has a rate between 101 and 115. He states he does take apixaban, amiodarone and diltiazem. He denies chest pain shortness of breath nausea or vomiting. Associated symptoms: Deny chest pain, dyspnea or palpitations Review of Systems 2 General: Reports: 10 or more systems reviewed and unremarkable except in HPI and below Card: Reports: irregular heart rhythm; Denies: chest pain or palpitations Resp: Denies: dyspnea Neuro: Reports: dizziness PFS ED 2 PFSH: Medical History Atrial fibrillation Diverticulitis Sepsis Pneumonia Peripheral vascular disease of lower extremity Gastritis Esophagitis History of stroke Hyperlipidemia Hypertension Surgical History H/O right knee surgery History of ankle surgery History of esophagogastroduodenoscopy (EGD) No significant past surgical history Family History Father CAD (coronary artery disease) Diabetes Mother CAD (coronary artery disease) Sister Cancer Denies family history of Hypertension Social History Smoking and tobacco/nicotine status: former use of tobacco/nicotine Quit status (tobacco/nicotine): has quit using Year quit tobacco: 2022 Former quit date comment: smoked up to 2 pack per day x 61 years Alcohol intake: former Year of sobriety/quit date alcohol: 2013 Substance/Drug Use: never Household members: spouse Housing: House Marital status: Number of children: 4 Pets and animals: No Physical Exam 2 Narrative: EXAM NARRATIVE: General: Alert, no acute distress. Skin: Warm, dry, Intact. Head: Normocephalic, atraumatic. Neck: Supple, trachea midline. Eye: Extraocular movements are intact. PERRLA Ears, nose, mouth and throat: mucosa moist. Cardiovascular: Irregularly irregular consistent with atrial fibrillation with RVR at a heart rate of 108. Normal peripheral perfusion. Respiratory: Lungs are clear to auscultation, respirations are non-labored, breath sounds are equal, Symmetrical chest wall expansion. Gastrointestinal: Soft, Nontender, Non distended, Normal bowel sounds. Umbilical hernia noted. Musculoskeletal: Normal ROM, no deformity. Neurological: Alert and oriented, No focal neurological deficit observed. Psychiatric: Cooperative, appropriate mood & affect. Course 2 Vital Signs: Vital signs: Vital Signs Temperature 98.0 F 09/06/23 12:46 Pulse Rate 97 09/06/23 18:00 Respiratory Rate 16 09/06/23 12:46 Blood Pressure 142/77 09/06/23 18:00 Pulse Oximetry 98 09/06/23 18:00 Oxygen Delivery Me thod Room Air 09/06/23 18:00 MDM - General Adult Medical Decision Making Physical exam completed and documented I will obtain a CBC CMP serial cardiac enzymes and EKGs as well as obtain a chest x-ray. I have reviewed the patient's medication that he presented into the emergency department I also have reviewed the blood pressure and heart rate log that they presented to me here in the emergency department. The patient does not appear to be in any acute distress at present. Medical Records I reviewed the patient's medical records. Lab Data I reviewed the patient's lab results. 09/06/23 13:17 09/06/23 13:17 Laboratory Results WBC 14.50 10^3/uL (3.29-11.43) H 09/06/23 13:17 RBC 3.31 10^6/uL (3.85-5.65) L 09/06/23 13:17 Hgb 9.60 g/dL (11.27-16.99) L 09/06/23 13:17 Hct 30.9 % (37-53) L 09/06/23 13:17 MCV 93.4 fl (82-101) 09/06/23 13:17 MCH 29.0 pg (27-33) 09/06/23 13:17 MCHC 31.1 g/dL (30-55) 09/06/23 13:17 RDW 16.4 % (12.1-15.1) H 09/06/23 13:17 Plt Count 326 10^3/cmm (157-399) 09/06/23 13:17 MPV 10.0 fL (7.4-10.4) 09/06/23 13:17 Neut % (Auto) 83.9 % 09/06/23 13:17 Lymph % (Auto) 7.5 % 09/06/23 13:17 Williamson % (Auto) 7.1 % 09/06/23 13:17 Eos % (Auto) 0.3 % 09/06/23 13:17 Baso % (Auto) 0.3 % 09/06/23 13:17 Neut # (Auto) 12.15 10^3/uL (1.8-7.7) H 09/06/23 13:17 Lymph # (Auto) 1.1 10^3/uL (0.8-4.8) 09/06/23 13:17 Williamson # (Auto) 1.0 10^3/uL (0.2-0.9) H 09/06/23 13:17 Eos # (Auto) 0.1 10^3/uL (0.0-0.8) 09/06/23 13:17 Baso # (Auto) 0.1 10^3/uL (0.0-0.1) 09/06/23 13:17 Nucleated RBC % (auto) 0 % 09/06/23 13:17 Nucleated RBCs # 0.0 /100WBC 09/06/23 13:17 ESR 44 mm/hr (0-10) H 09/06/23 16:49 PT 18.00 SECONDS (12.1-14.9) H 09/06/23 13:17 INR 1.44 (0.8-1.2) H 09/06/23 13:17 Sodium 138 mmol/L (136-145) 09/06/23 13:17 Potassium 4.0 mmol/L (3.5-5.1) 09/06/23 13:17 Chloride 99 mmol/L (98-107) 09/06/23 13:17 Carbon Dioxide 26 mmol/L (22-29) 09/06/23 13:17 Anion Gap 17.0 (5-19) 09/06/23 13:17 BUN 26 mg/dL (8-23) H 09/06/23 13:17 Creatinine 2.1 mg/dL (0.7-1.2) H 09/06/23 13:17 GFR Calculation Not Reportable 09/06/23 13:17 Glucose 133 mg/dL (65-115) H 09/06/23 13:17 Calculated Osmolality 293 mOsm/kg (285-295) 09/06/23 13:17 Lactic Acid 1.4 mmol/L (0.5-2.2) 09/06/23 16:49 Calcium 8.4 mg/dL (8.5-10.5) L 09/06/23 13:17 Phosphorus 4.0 mg/dL (2.5-4.5) 09/06/23 16:49 Magnesium 2.0 mg/dL (1.7-2.3) 09/06/23 16:49 Iron 26 ug/dL (59-158) L 09/06/23 16:49 Ferritin 406 ng/mL (30-400) H 09/06/23 16:49 Total Bilirubin 0.4 mg/dL (0.15-1.2) 09/06/23 13:17 AST 17 U/L (0-40) 09/06/23 13:17 ALT 25 U/L (0-41) 09/06/23 13:17 Alkaline Phosphatase 86 U/L (40-130) 09/06/23 13:17 Creatine Kinase 38 U/L (39-308) L 09/06/23 16:49 Troponin T Baseline 56 ng/L (0-15) H 09/06/23 13:17 Troponin T 120 Minute 59.83 ng/L (0-15) H 09/06/23 15:21 Delta Troponin T 3.83 ABS# (0-10) 09/06/23 15:21 C-Reactive Protein 68.8 mg/L (0.0-4.9) H 09/06/23 16:49 NT-Pro-B Natriuret Pep 3669 pg/mL (0-450) H 09/06/23 16:49 Total Protein 6.0 g/dL (6.6-8.7) L 09/06/23 13:17 Albumin 3.5 g/dL (3.5-5.2) 09/06/23 13:17 Globulin 2.5 g/dL (1.3-4.6) 09/06/23 13:17 Vitamin B12 1205 pg/mL (232-1245) 09/06/23 16:49 Folate > 20.0 ng/mL (4.5-32.2) 09/06/23 16:49 Procalcitonin 0.10 ng/mL (0-0.5) 09/06/23 16:49 TSH 4.05 uIU/mL (0.27-4.20) 09/06/23 16:49 Ethyl Alcohol < 10 mg/dL (0-10) 09/06/23 16:49 All radiology interpretation(s) finalized by discharge EKG Data EKG 1: Interpretation: Twelve-lead EKG obtained at 1252 and reviewed at 1252 demonstrates atrial fibrillation with rapid ventricular response at a rate of 108 bpm, QRS duration 128, QT 364, QTc 427, there does appear to be some slight ST depression in leads V4, V5, and V6. Discharge Plan Discharge Patient Disposition: Admitted As Inpatient Admit Provider: Casimiro Kevin Clinical Impression: Atrial fibrillation with tachycardic ventricular rate, Syncope, Dizziness Condition: Stable Coding Level of Care Code ED Flow Coordinator for Shemar Candelaria
--- NOTE | 2023-09-06 12:52 | ECG_ITS ---
[facility] Test Date: 2023-09-06 Pat Name: Pati Telles Department: Room: Gender: Male Program Clinician: : 1945 Requested By: Dick Telles Order Number: [id number] Shanthi MD: Almaz Decker M.D. Measurements Intervals [place] Rate: 108 P: 0 ID: 0 QRS: 117 QRSD: 128 T: 38 QT: 364 QTc: 488 Interpretive Statements ATRIAL FIBRILLATION WITH RAPID VENTRICULAR RESPONSE RIGHT AXIS DEVIATION [QRS AXIS > 100] RIGHT BUNDLE BRANCH BLOCK [120+ ms QRS DURATION, UPRIGHT V1, 40+ ms S IN I/aVL/V4/V5/V6] ANTERIOR MYOCARDIAL INFARCTION , OF INDETERMINATE AGE [40+ ms Q WAVE AND/OR ST/T ABNORMALITY IN V3/V4] Compared to ECG 07/31/2023 14:28:26 Right-axis deviation now present Myocardial infarct finding still present Electronically Signed On 09-07-2023 19:26:13 CDT by Almaz Decker M.D. [id number]
[2023-09-06 13:25] LABS: Basophils # 0.1 10^3/uL (0.0-0.1); Basophils % 0.3 %; Eosinophils # 0.1 10^3/uL (0.0-0.8); Eosinophils % 0.3 %; Hematocrit 30.9 % (37-53); Lymphocytes # 1.1 10^3/uL (0.8-4.8); Lymphocytes % 7.5 %; Mean Corpuscular HGB Conc 31.1 g/dL (30-55); Mean Corpuscular Volume 93.4 fl (82-101); Monocytes % 7.1 %; Neutrophils # 12.15 10^3/uL (1.8-7.7); Neutrophils % 83.9 %; Nucleated Red Blood Cells % 0 %; Platelet Count 326 10^3/cmm (157-399); Red Blood Count 3.31 10^6/uL (3.85-5.65); Red Cell Distribution Width 16.4 % (12.1-15.1)
[2023-09-06 13:40] LABS: INR 1.44 (0.8-1.2)
[2023-09-06 13:46] LABS: Troponin(5th) Baseline 56 ng/L (0-15)
[2023-09-06 13:49] LABS: Alanine Aminotransferase 25 U/L (0-41); Albumin Level 3.5 g/dL (3.5-5.2); Alkaline Phosphatase 86 U/L (40-130); Aspartate Amino Transferase 17 U/L (0-40); Blood Urea Nitrogen 26 mg/dL (8-23); Calcium 8.4 mg/dL (8.5-10.5); Carbon Dioxide 26 mmol/L (22-29); Chloride 99 mmol/L (98-107); Globulin 2.5 g/dL (1.3-4.6); Glucose 133 mg/dL (65-115); Osmolality Calculated 293 mOsm/kg (285-295); Sodium 138 mmol/L (136-145); Total Bilirubin 0.4 mg/dL (0.15-1.2)
--- NOTE | 2023-09-06 14:04 | CT_ITS ---
WS: [id number] CT HEAD NONCONTRAST HISTORY: dizziness/syncope TECHNIQUE: Contiguous axial imaging performed through the brain in 2.5 mm imaging. Bone and soft tiss ue windows. Sagittal and coronal reformats reviewed. All CT scans at [facility] use at least one of these dose optimization techniques: automated exposure control; mA and/or kV adjustment per pa tient size (includes targeted exams where dose is matched to clinical indication); or iterative recon struction. DLP: 1229.58 mGy.cm COMPARISON: 06/17/2023 No acute intracranial hemorrhage, midline shift or mass effect. Moderate atrophy and advanced small vessel disease disease. Prior lacunar infarct LEFT ann radiata . Ventricles: Normal size with no hydrocephalus. No inferior displacement of the cerebellar tonsils. Paranasal sinuses: Mucoperiosteal thickening in the posterior LEFT ethmoid air cells. Mastoid air cells: Small amount of fluid in the mastoid air cells. Calvarium and scalp: Skull is intact with no soft tissue edema or swelling. IMPRESSION: 1. No acute intracranial hemorrhage or edema. 2. Moderate atrophy and advanced small vessel ischemic disease. 3. Remote lacunar infarct LEFT ann radiata. 4. Bilateral mastoiditis.
[2023-09-06 14:34] LABS: NT Pro B Type Natriuretic Pept 3411 pg/mL (0-450)
--- NOTE | 2023-09-06 15:32 | ECG_ITS ---
[facility] Test Date: 2023-09-06 Pat Name: Pati Telles Department: Room: Gender: Male Unit Controller: : 1945 Requested By: Dick Telles Order Number: [id number] Shanthi MD: Almaz Decker M.D. Measurements Intervals [place] Rate: 100 P: 0 GA: 0 QRS: 101 QRSD: 161 T: 59 QT: 391 QTc: 506 Interpretive Statements ATRIAL FIBRILLATION WITH RAPID VENTRICULAR RESPONSE RIGHT AXIS DEVIATION [QRS AXIS > 100] RIGHT BUNDLE BRANCH BLOCK [120+ ms QRS DURATION, UPRIGHT V1, 40+ ms S IN I/aVL/V4/V5/V6] Compared to ECG 09/06/2023 12:52:23 Myocardial infarct finding no longer present Electronically Signed On 09-07-2023 19:57:21 CDT by Almaz Decker M.D. [id number]
[2023-09-06] MEDS: dilTIAZem 5 mg/mL SDV 5 mL IVP (15:39)
[2023-09-06 16:05] LABS: Troponin 5 2HR 59.83 ng/L (0-15); Troponin 5 2HR Delta 3.83 ABS# (0-10)
--- NOTE | 2023-09-06 16:22 | USCV_ITS ---
Pati Telles Age: 77 Gender: M : 1945 Exam Date: 09/06/2023 18:14 Ordering Phys: Casimiro Kevin MD Technologist: Piero Franklin [place]am [place] [facility] [place] Indication: syncope Risk Factors: Previous Vascular Surgery: Right Brachial BP: / Left Brachial BP: / Right Left Velocity (cm/s) Spectral Plaque Velocity (cm/s) Spectral Plaque Syst/Diast Broadening Syst/Diast Broadening 88.20/ 23.30 Prox CCA 128.30/ 15.20 100.90/21.90 Mid CCA 110.20/ 28.00 96.30/ 22.20 Distal CCA 92.20 / 15.20 211.30/43.80 Prox ICA 104.90/ 27.30 89.70/ 22.20 Mid ICA 76.00 / 18.90 104.20/32.90 Distal ICA 84.20 / 21.60 141.30 ECA 126.80 2.20 ICA/CCA 1.10 Antegrade Vertebral Antegrade 46.90/ 16.30 cm/s 89.00/ 21.50 cm/s Tri Subclavian Tri 115.5 151.3 0 0 FINDINGS Moderate heterogenous plaques of the right bifurcation. Elevated velocity of the proximal ICA with a color flow turbulence Mild to moderate plaque buildup in the left bifurcation and proximal ICA. Antegrade flow in the vertebral arteries bilaterally. Normal Doppler flow velocities in the external carotid and the subclavian arteries bilaterally. CONCLUSIONS Moderate heterogenous plaques of the right bifurcation with the Doppler features suggesting 50 to 69% stenosis Mild to moderate plaques of the left bifurcation and proximal ICA with the Doppler features suggesting less than 50% stenosis No significant stenosis in the vertebral, proximal external carotid or subclavian arteries based on the above findings No similar previous studies are available for comparison Dr Almaz Decker MD [facility] (Electronically Signed) Final Date: 07 September 2023 14:00 S
--- NOTE | 2023-09-06 16:24 | P.HP_ITS ---
Providers/Chief Complaint 2 Primary Care Provider: Caterina Barrett DO Chief Complaint: dizzy History of Present Illness Pati Telles is a 77 year old male with a past medical history of atrial fibrillation on Eliquis, with a recent transfer for UTI with nephrolithiasis requiring stent placement with removal, with history of thoracocentesis, history of CVA, who presents [facility] due to dizziness. Patient tells me that whenever he ambulates, gets up or walks, he feels lightheaded and dizzy and he feels like he almost will pass out but never has passed out. No preceding chest pain or palpitations but does feel lightheaded, no nausea, vomiting, or diaphoresis. He has had UTIs he had a stent removed for nephrolithiasis denies any dysuria. No facial droop no slurring of words no focal weakness. He tells me that cardiology has cut down his dose of metoprolol as a possible etiology however he continues to feel dizzy, and is interfering with his level of functioning, he tells me he cannot function like this anymore. Is been going on for the last few months, but progressively getting worse Review of Systems 2 Const: Denies: fever(s) Card: Reports: palpitations; Denies: chest pain Resp: Denies: dyspnea GI: Denies: abdominal pain : Denies: flank pain or difficulty urinating Neuro: Reports: dizziness and vertigo; Denies: headache(s), numbness in extremities, weakness in extremities, lack of coordination or Slurred speech present Medications/Allergies Home Medications Medication Instructions Recorded Confirmed Last Taken Type budesonide-formoterol HFA 160 2 puff inhalation BID 11/02/21 09/06/23 09/06/23 History mcg-4.5 mcg/actuation aerosol inhaler (Symbicort) clonidine HCl 0.1 mg tablet 0.1 mg PO TID PRN Blood Pressure 11/02/21 09/06/23 Unknown History finasteride 5 mg tablet 5 mg PO DAILY 11/02/21 09/06/23 06/29/23 History gabapentin 300 mg capsule 300 mg PO TID 11/02/21 09/06/23 09/06/23 History tamsulosin 0.4 mg capsule 0.8 mg PO QAM 11/02/21 09/06/23 09/06/23 History tramadol 50 mg tablet 100 mg PO QID PRN Pain 11/02/21 09/06/23 06/16/23 History albuterol sulfate 2.5 mg/3 mL 2.5 mg inhalation Q6H PRN 06/16/23 09/06/23 06/16/23 History (0.083 %) solution for nebulization Shortness Of Breath Or Wheezing amiodarone 200 mg tablet (Pacerone) 400 mg (2 x 200 mg) PO DAILY #120 06/21/23 09/06/23 09/06/23 Rx tabs apixaban 5 mg tablet (Eliquis) 5 mg PO BID #60 tabs 06/21/23 09/06/23 09/06/23 Rx diltiazem HCl 360 mg 360 mg PO DAILY #90 tabs 06/21/23 09/06/23 09/06/23 Rx tablet,extended release 24 hr (Cardizem LA) furosemide 20 mg tablet (Lasix) 20 mg PO DAILY PRN Weight gain 06/21/23 09/06/23 09/05/23 Rx more than 3 pounds in 24 hours #90 tabs potassium chloride 10 mEq 10 meq PO DAILY PRN Only take when 06/21/23 09/06/23 09/05/23 Rx tablet,extended release you take Lasix #60 tabs bimatoprost 0.01 % eye drops 1 drp ophthalmic (eye) BEDTIME 06/29/23 09/06/23 09/05/23 History (Rika) pantoprazole 40 mg tablet,delayed 40 mg PO DAILY 06/29/23 09/06/23 09/05/23 History release vitamins A,C,O-smlo-rhooax 4,296 1 cap PO QAM 06/29/23 09/06/23 09/06/23 History mcg-226 mg-90 mg capsule isosorbide mononitrate 30 mg 30 mg PO DAILY 09/06/23 09/06/23 09/06/23 History tablet,extended release 24 hr metoprolol succinate 100 mg 100 mg PO DAILY 09/06/23 09/06/23 09/06/23 History tablet,extended release 24 hr metoprolol succinate 25 mg 25 mg PO DAILY 09/06/23 09/06/23 09/06/23 History tablet,extended release 24 hr omega 3-qfn-ayf-fish oil 1,000 mg 1 cap PO DAILY 09/06/23 09/06/23 09/06/23 History (120 mg-180 mg) capsule (Fish Oil) Allergies Allergy/AdvReac Type Severity Reaction Status Date / Time Alpha-Gal Allergy Severe ALGY-Rash Verified 09/06/23 12:55 (Xpckyvevc-Ykjab-0,3-Gala lisinopril Allergy ADR-Faintin Verified 09/06/23 12:55 g PFSH Acute 2 PFSH: Medical History Atrial fibrillation Diverticulitis Sepsis Pneumonia Peripheral vascular disease of lower extremity Gastritis Esophagitis History of stroke Hyperlipidemia Hypertension Surgical History H/O right knee surgery History of ankle surgery History of esophagogastroduodenoscopy (EGD) No significant past surgical history Family History Father CAD (coronary artery disease) Diabetes Mother CAD (coronary artery disease) Sister Cancer Denies family history of Hypertension Social History Smoking and tobacco/nicotine status: former use of tobacco/nicotine Quit status (tobacco/nicotine): has quit using Year quit tobacco: 2022 Former quit date comment: smoked up to 2 pack per day x 61 years Alcohol intake: former Year of sobriety/quit date alcohol: 2013 Substance/Drug Use: never Household members: spouse Housing: House Marital status: Number of children: 4 Pets and animals: No Vitals/I&O/Wt Last Vital Signs Temp 98.0 F 09/06/23 12:46 Pulse 110 H 09/06/23 12:46 Resp 16 09/06/23 12:46 BP 128/71 09/06/23 14:06 Pulse Ox 94 09/06/23 12:46 O2 Del Method Room Air 09/06/23 12:46 Weight last 48 hrs Weight 81.647 kg Physical Exam 2 Const: COMMON NORMALS: no acute distress and patient oriented x3 HENMT: COMMON NORMALS: normocephalic HEAD & SCALP: normocephalic Eye: COMMON NORMALS: Equal, round and reactive pupils present and EOMs intact bilaterally Neck/C-Spine: COMMON NORMALS: no JVD Resp: COMMON NORMALS: normal respiratory effort, No retractions, No use of accessory muscles and clear to auscultation bilaterally AUSCULTATION: clear to auscultation bilaterally Cardio: COMMON NORMALS: no JVD, regular rate, regular rhythm, S1 normal heart sound present and S2 normal heart sound present RATE: regular rate RHYTHM: regular rhythm HEART SOUNDS: S1 normal heart sound present and S2 normal heart sound present GI: COMMON NORMALS: Normal to inspection, nondistended, normoactive bowel sounds present, Soft to palpation and non-tender Extremity: COMMON NORMALS: no calf tenderness and no pedal edema Neuro: COMMON NORMALS: patient oriented x3, CN's II-XII intact bilaterally and moves all extremities Psych: COMMON NORMALS: mental status grossly normal Data 09/06/23 13:17 09/06/23 13:17 A&P Assessment and plan (1) Dizziness: (2) Pre-syncope: (3) Acute kidney injury: (4) Leukocytosis: (5) Atrial fibrillation with RVR: Plan Dizziness ? Etiology unclear ? Could be polypharmacy from amiodarone Cardizem metoprolol Imdur, tamsulosin ? Hold amiodarone ? Decrease Cardizem to 60 every 6 ? Decrease metoprolol to 25 mg twice daily ? Hold Imdur, Exa?continue tamsulosin ? Other possibilities include possible parkinsonian disease, patient does have a resting tremor, will consider Sinemet based on clinical progress ? Check orthostatic vitals ? UA currently pending concerns for UTI given his recent history of nephrolithiasis ? Cardiac echo ? Carotid artery ultrasound comments ? Will consider MRI of the brain to evaluate posterior circulation stroke, although cerebellar signs are within normal limits Leukocytosis ? Etiology unclear, ? Chest x-ray within normal limits, awaiting UA ? Has a history of nephrolithiasis with kidney stone, with stent placement and subsequent removal ? A-fib with RVR ? Given patient's dizziness as above controlling his heart rates will be difficult ? Medication dosing as above, Exa?continue Eliquis ? Acute kidney injury ? Hold off on diuresis hold off on fluids Attestations 2 Medical Necessity Statement*: Patient requires hospitalization, inpatient, greater than 2 minutes for dizziness, presyncope, A-fib with RVR, MAICOL, leukocytosis Diagnoses Dizziness R42 Pre-syncope R55 Acute kidney injury N17.9 Leukocytosis D72.829 Atrial fibrillation with RVR I48.91
[2023-09-06 17:25] LABS: Erythrocyte Sedimentation Rate 44 mm/hr (0-10)
[2023-09-06 17:28] LABS: Lactic Sepsis W/Reflex 1.4 mmol/L (0.5-2.2)
[2023-09-06 17:48] LABS: NT Pro B Type Natriuretic Pept 3669 pg/mL (0-450); Thyroid Stimulating Hormone 4.05 uIU/mL (0.27-4.20); Vitamin B12 1205 pg/mL (232-1245)
[2023-09-06 17:59] LABS: C Reactive Protein 68.8 mg/L (0.0-4.9); Creatine Phosphokinase 38 U/L (39-308); Ferritin 406 ng/mL (30-400); Iron 26 ug/dL (59-158)
[2023-09-06 18:05] LABS: Alcohol Level < 10 mg/dL (0-10)
[2023-09-06 18:11] LABS: Folate Level > 20.0 ng/mL (4.5-32.2)
[2023-09-06 19:04] LABS: Amphetamines Screen Urine Negative (Negative); Barbiturates Screen Urine Negative (Negative); Benzodiazepines Screen Urine Negative (Negative); Cocaine Screen Urine Negative (Negative); Opiate Screen Urine Negative (Negative); PCP Screen Urine Negative (Negative); THC Screen Urine Negative (Negative)
[2023-09-06 19:31] LABS: Add Urine Microscopic? YES; Bilirubin Urine Neg (Negative); Blood Urine Neg (Negative); Glucose Urine UA Norm (Normal); Ketones Urine Negative (Negative); Leukocyte Esterase Urine Negative (Negative); Nitrate Urine Negative (Negative); Protein Urine Trace (Negative); Specific Gravity, Urine 1.005 (1.005-1.030); Urine Appearance Clear (CLEAR); Urine Color Yellow (Yellow); Urobilinogen Urine Neg (Negative); pH Urine 6 (5-7)
[2023-09-06 19:32] LABS: Bacteria Urine TRACE /hpf; Mucus Urine 1+ /hpf; RBC Urine 0-4 /hpf (0-2); Squamous Epithelial Cell Urine 0-4 /hpf (0-5); WBC Urine 0-4 /hpf (0-5)
[2023-09-06] MEDS: metoprolol tartrate 25 mg Tablet PO (20:53)
[2023-09-06] MEDS: gabapentin 300 mg Capsule PO (20:54)
[2023-09-06] MEDS: dilTIAZem 60 mg Tablet PO (20:54)
[2023-09-06] MEDS: apixaban 5 mg Tablet PO (20:54)
[2023-09-06] MEDS: pantoprazole 40 mg SDV IVP (20:56)
[2023-09-06 21:03] LABS: Estmated Average Glucose 103; Hemoglobin A1C 5.2 % (4.0-6.0)
[2023-09-06 21:09] LABS: Troponin 5 6HR 48.99 ng/L (0-15); Troponin 5 6HR Delta -7.01 ng/L (0-12)
[2023-09-06 21:39] LABS: Chol HDL Ratio 4.09 mg/dL (1.0-5.00); Cholesterol 184 mg/dL (0-200); HDL Cholesterol 45 mg/dL (60-100); LDL Cholesterol Calculated 121 mg/dL (50-129); LDL HDL Ratio 2.69 RATIO (0.00-3.22); Triglycerides 88 mg/dL (0-150)
--- NOTE | 2023-09-06 22:10 | PC.RESP ---
184 ekg not done in er
[2023-09-07] VITALS (14 sets, daily range): BP systolic 94–130; BP diastolic 52–78; PULSE 67–105; RESP 15–20; TEMP 36.8–36.9; O2SAT 91–95
[2023-09-07] MEDS: dilTIAZem 60 mg Tablet PO ×4 (01:05→21:21)
[2023-09-07] MEDS: lactulose oral liq 20 gm/30 mL UDC PO (01:05)
[2023-09-07] MEDS: sennosides-docusate Tablet 1 TAB PO (01:05)
[2023-09-07 04:44] LABS: Basophils % 0.4 %; Eosinophils # 0.2 10^3/uL (0.0-0.8); Eosinophils % 2.3 %; Hematocrit 30.9 % (37-53); Lymphocytes # 1.8 10^3/uL (0.8-4.8); Lymphocytes % 16.9 %; Mean Corpuscular HGB Conc 31.1 g/dL (30-55); Mean Corpuscular Hemoglobin 28.9 pg (27-33); Mean Corpuscular Volume 93.1 fl (82-101); Mean Platelet Volume 10.3 fL (7.4-10.4); Monocytes # 1.1 10^3/uL (0.2-0.9); Neutrophils # 7.35 10^3/uL (1.8-7.7); Neutrophils % 69.6 %; Nucleated Red Blood Cells % 0 %; Platelet Count 353 10^3/cmm (157-399); Red Blood Count 3.32 10^6/uL (3.85-5.65); Red Cell Distribution Width 16.5 % (12.1-15.1); White Blood Count 10.54 10^3/uL (3.29-11.43)
[2023-09-07 04:59] LABS: Blood Urea Nitrogen 23 mg/dL (8-23); Calcium 8.8 mg/dL (8.5-10.5); Carbon Dioxide 25 mmol/L (22-29); Chloride 104 mmol/L (98-107); Creatinine Clr Calc Pharmacy 34.5648; Glucose 111 mg/dL (65-115); Osmolality Calculated 298 mOsm/kg (285-295); Sodium 142 mmol/L (136-145)
--- NOTE | 2023-09-07 06:00 | USCV_ITS ---
Pati Telles Age: 77 Gender: M : 1945 Exam Date: 09/07/2023 07:20 Ordering Phys: Casimiro Kevin MD Technologist: Piero Franklin Exam Location: [facility] [place] Indication: pre syncope BP: 126 / 78 HR: 101 Rhythm: Sinus Technical Quality: Adequate MEASUREMENTS (Male / Female) Normal Values 2D ECHO LV Diastolic Diameter PLAX 4.9 cm 4.2 - 5.9 / 3.9 - 5.3 cm IVS Diastolic Thickness 1.1 cm 0.6 - 1.0 / 0.6 - 0.9 cm IVS Systolic Thickness 1.6 cm LVPW Diastolic Thickness 1.7 cm 0.6 - 1.0 / 0.6 - 0.9 cm LVPW Systolic Thickness 2.4 cm LVOT Diameter 2.3 cm LV Ejection Fraction 2D Teich 52.2 % LV Ejection Fraction MOD 2C 78.3 % LV Ejection Fraction 2C AL 78.6 % LA Diameter 4.8 cm LA Sys Volume AL 62.6 cm cubed LA Sys Volume Index AL 29.5 cm cubed/m squared Aorta at Sinotubular Diameter 2.5 cm IVC Diameter 1.6 cm M-MODE LA Ao Ratio MM 1.5 AV Cusp Separation MM 0.7 cm DOPPLER AV Peak Velocity 299.3 cm/s LVOT Peak Velocity 119.0 cm/s AV Area Cont Eq vti 1.4 cm squared AV Area Cont Eq pk 1.7 cm squared MV Peak Velocity 142.0 cm/s MV Area PHT 7.3 cm squared Mitral E to A Ratio 3.3 TV Peak Velocity 239.0 cm/s TR Peak Velocity 300.0 cm/s TR Peak Gradient 36.0 mmHg TR Mean Velocity 221.0 cm/s TR Mean Gradient 22.3 mmHg TR Velocity Time Integral 57.6 cm PV Peak Velocity 132.0 cm/s RV Ejection Time 0.2 s FINDINGS Left Ventricle Normal left ventricular size and systolic function, EF 78%. Moderate left ventricular hypertrophy. No regional wall motion abnormalities. Grade III/IV diastolic dysfunction (restrictive filling pattern), severely elevated filling pressures. Right Ventricle The right ventricle is normal in size and function. Right Atrium The right atrium is normal in size. Left Atrium Mildly increased left atrial size. Mitral Valve Mild mitral annular calcification. Trace to mild mitral valve regurgitation. Aortic Valve Mild to moderate aortic regurgitation.moderate aortic valve stenosis, mean gradient 21.7 mmHg, KHAI 1.4 cm squared. Peak velocity of 3.09 m/s Tricuspid Valve Trace to mild tricuspid valve regurgitation. Pulmonic Valve Pulmonic valve not well visualized. Pericardium Normal pericardium without effusion. Aorta Normal ascending aorta dimension. IVC Normal inferior vena cava. CONCLUSIONS Normal left ventricular size and systolic function, EF 78%. Moderate left ventricular hypertrophy. No regional wall motion abnormalities. Grade III/IV diastolic dysfunction (restrictive filling pattern), severely elevated filling pressures. Moderate aortic valve stenosis, mean gradient 21.7 mmHg, KHAI 1.4 cm squared. Peak velocity of 3.09 m/s. Mild to moderate aortic regurgitation. Mildly increased left atrial size. Mild mitral annular calcification. Trace to mild mitral valve regurgitation. Trace to mild tricuspid valve regurgitation. Estimated pulmonary artery peak systolic pressure 25 mmHg. This could be an underestimation because of the poor Doppler signals. There is no pericardial effusion. Comparison with the previous study from 06/17/2023 is not possible because of the differences in technical quality Dr Almaz Decker MD [facility] (Electronically Signed) Final Date: 07 September 2023 14:08 S
[2023-09-07] MEDS: tamsulosin 0.4 mg Capsule 0.800000000000000044 MG PO (06:13)
[2023-09-07] MEDS: ipratropium-albuterol 3 mL Neb INHALATION ×2 (08:09→20:33)
[2023-09-07] MEDS: budesonide 0.5 mg/2 mL Neb INHALATION ×2 (08:09→20:33)
[2023-09-07] MEDS: metoprolol tartrate 25 mg Tablet PO ×2 (08:20→21:21)
[2023-09-07] MEDS: gabapentin 300 mg Capsule PO ×3 (08:20→21:21)
[2023-09-07] MEDS: apixaban 5 mg Tablet PO ×2 (08:21→17:20)
--- NOTE | 2023-09-07 14:59 | P.PN_ITS ---
Subjective 2 Subjective: patient was seen this morning has intermittent dizziness, no chest pain, orthostatic vitals are positive, no abdominal pain, no dysuria Vitals/I&O/Wt Last Vital Signs Temp 98.3 F 09/07/23 11:07 Pulse 84 09/07/23 13:58 Resp 18 09/07/23 11:07 BP 112/67 09/07/23 11:07 Pulse Ox 91 09/07/23 11:07 O2 Del Method Room Air 09/07/23 11:07 09/06/23 09/07/23 09/07/23 22:59 06:59 14:59 Intake Total 480 / 480 Output Total 750 / 750 250 / 250 Balance -270 / -270 -250 / -250 Weight last 48 hrs Weight 87.906 kg Weight 87.589 kg Weight 81.647 kg Physical Exam 2 Const: COMMON NORMALS: no acute distress and patient oriented x3 Resp: COMMON NORMALS: normal respiratory effort, No retractions, No use of accessory muscles and clear to auscultation bilaterally AUSCULTATION: clear to auscultation bilaterally Cardio: COMMON NORMALS: regular rate, regular rhythm, S1 normal heart sound present and S2 normal heart sound present RATE: regular rate RHYTHM: r egular rhythm HEART SOUNDS: S1 normal heart sound present and S2 normal heart sound present GI: COMMON NORMALS: Normal to inspection, nondistended, normoactive bowel sounds present and non-tender Extremity: COMMON NORMALS: no pedal edema Neuro: COMMON NORMALS: patient oriented x3 Psych: COMMON NORMALS: mental status grossly normal Data 09/07/23 03:48 09/07/23 03:48 Micro: Microbiology 09/06/23 16:51 Blood Culture - Preliminary Blood SPECIMEN COLLECTED 09/06/23 16:49 Blood Culture - Preliminary Blood SPECIMEN COLLECTED A&P Assessment and plan (1) Dizziness: (2) Pre-syncope: (3) Acute kidney injury: (4) Leukocytosis: (5) Atrial fibrillation with RVR: Plan Dizziness ? Etiology unclear ? Could be polypharmacy from amiodarone Cardizem metoprolol Imdur, tamsulosin ? Hold amiodarone ? Decrease Cardizem to 60 every 6 ? Decrease metoprolol to 25 mg twice daily ? Hold Imdur, Exa?continue tamsulosin ? Other possibilities include possible parkinsonian disease, patient does have a resting tremor, will consider Sinemet based on clinical progress ? Check orthostatic vitals postive ? UA currently pending concerns for UTI given his recent history of nephrolithiasis ? Cardiac echo ? Carotid artery ultrasound comments ? Will consider MRI of the brain to evaluate posterior circulation stroke, although cerebellar signs are within normal limits Leukocytosis ? Etiology unclear, ? Chest x-ray within normal limits, awaiting UA, UA WNL ? Has a history of nephrolithiasis with kidney stone, with stent placement and subsequent removal ? A-fib with RVR ? Given patient's dizziness as above controlling his heart rates will be difficult ? Medication dosing as above, Exa?continue Eliquis ? Acute kidney injury ? Hold off on diuresis hold off on fluids Attestations 2 Medical Necessity Statement*: patient requires hospitalization for presyncope Diagnoses Dizziness R42 Pre-syncope R55 Acute kidney injury N17.9 Leukocytosis D72.829 Atrial fibrillation with RVR I48.91
[2023-09-07] MEDS: fixodent 39 gm Tube 1 APPLIC DENTAL (18:04)
[2023-09-07] MEDS: pantoprazole 40 mg SDV IVP (21:22)
[2023-09-08] VITALS (16 sets, daily range): BP systolic 102–151; BP diastolic 69–94; PULSE 87–124; RESP 17–25; TEMP 36.6–36.8; O2SAT 93–96
[2023-09-08] MEDS: dilTIAZem 60 mg Tablet PO ×2 (02:07→08:47)
[2023-09-08 03:53] LABS: Basophils % 0.3 %; Eosinophils # 0.3 10^3/uL (0.0-0.8); Eosinophils % 2.4 %; Hematocrit 31.4 % (37-53); Lymphocytes # 1.8 10^3/uL (0.8-4.8); Lymphocytes % 16.9 %; Mean Corpuscular HGB Conc 31.8 g/dL (30-55); Mean Corpuscular Hemoglobin 29.5 pg (27-33); Mean Corpuscular Volume 92.6 fl (82-101); Mean Platelet Volume 10.5 fL (7.4-10.4); Monocytes # 0.9 10^3/uL (0.2-0.9); Monocytes % 8.6 %; Neutrophils % 71.2 %; Nucleated Red Blood Cells % 0 %; Platelet Count 361 10^3/cmm (157-399); Red Blood Count 3.39 10^6/uL (3.85-5.65); Red Cell Distribution Width 16.6 % (12.1-15.1); White Blood Count 10.68 10^3/uL (3.29-11.43)
[2023-09-08 04:19] LABS: Anion Gap 15.9 (5-19); Blood Urea Nitrogen 19 mg/dL (8-23); Carbon Dioxide 24 mmol/L (22-29); Chloride 107 mmol/L (98-107); Creatinine Clr Calc Pharmacy 36.4405; Glucose 112 mg/dL (65-115); Osmolality Calculated 299 mOsm/kg (285-295); Potassium 3.9 mmol/L (3.5-5.1); Sodium 143 mmol/L (136-145)
[2023-09-08] MEDS: tamsulosin 0.4 mg Capsule 0.800000000000000044 MG PO (06:35)
[2023-09-08] MEDS: budesonide 0.5 mg/2 mL Neb INHALATION ×2 (07:54→20:30)
[2023-09-08] MEDS: ipratropium-albuterol 3 mL Neb INHALATION ×2 (07:54→20:30)
[2023-09-08] MEDS: apixaban 5 mg Tablet PO ×2 (08:46→17:06)
[2023-09-08] MEDS: gabapentin 300 mg Capsule PO ×3 (08:47→20:21)
[2023-09-08] MEDS: metoprolol tartrate 25 mg Tablet PO ×2 (08:47→20:21)
--- NOTE | 2023-09-08 16:12 | P.PN_ITS ---
Subjective 2 Subjective: Patient was seen this morning, we discussed the cause of his presyncope, likely combination of orthostatic hypotension, his blood pressures do drop 20 points upon standing up, this is likely polypharmacy, I have cut down his dose of metoprolol, cut his dose of Cardizem further, however the issue is he is at currently heart rates are in the 110s, and when he get up gets up and exerts himself heart rates go into the 130s, will have to discuss with cardiology, I am going to put him back on his amiodarone at a lower dose 200 mg daily, however he might require another antiarrhythmic, I also think that he has moderate aortic stenosis which is playing a role in why his atrial fibrillation is difficult to control and his presyncopal symptoms, he voiced understanding, all questions answered, continue to ambulate monitor orthostatic vitals, spoke to cardiology spoke to Dr. Decker will consult Vitals/I&O/Wt Last Vital Signs Temp 98.1 F 09/08/23 07:15 Pulse 99 09/08/23 15:57 Resp 19 H 09/08/23 12:00 BP 124/73 09/08/23 12:00 Pulse Ox 95 09/08/23 11:17 O2 Del Method Room Air 09/08/23 11:17 O2 Flow Rate 1 09/08/23 04:00 09/08/23 09/08/23 09/08/23 06:59 14:59 22:59 Intake Total 480 / 480 Output Total 700 / 1450 Balance -700 / -1110 480 / 480 Weight last 48 hrs Weight 86.455 kg Weight 87.906 kg Weight 87.589 kg Physical Exam 2 Const: COMMON NORMALS: no acute distress and patient oriented x3 Resp: COMMON NORMALS: normal respiratory effort, No retractions, No use of accessory muscles and clear to auscultation bilaterally AUSCULTATION: clear to auscultation bilaterally Cardio: COMMON NORMALS: regular rate, regular rhythm, S1 normal heart sound present and S2 normal heart sound present RATE: regular rate RHYTHM: r egular rhythm HEART SOUNDS: S1 normal heart sound present and S2 normal heart sound present GI: COMMON NORMALS: Normal to inspection, nondistended, normoactive bowel sounds present and non-tender Extremity: COMMON NORMALS: no pedal edema Neuro: COMMON NORMALS: patient oriented x3 Psych: COMMON NORMALS: mental status grossly normal Data 09/08/23 02:41 09/08/23 02:41 Micro: Microbiology 09/06/23 16:51 Blood Culture - Preliminary Blood NEGATIVE TO DATE 09/06/23 16:49 Blood Culture - Preliminary Blood NEGATIVE TO DATE A&P Assessment and plan (1) Dizziness: (2) Pre-syncope: (3) Acute kidney injury: (4) Leukocytosis: (5) Atrial fibrillation with RVR: (6) Orthostatic hypotension: (7) Polypharmacy: (8) Aortic stenosis: Plan Dizziness ? Etiology multifactorial from orthostatic hypotension, polypharmacy, aortic stenosis ? Could be polypharmacy from amiodarone Cardizem metoprolol Imdur, tamsulosin ? Amiodarone to 200 daily ? Decrease Cardizem to 30 every 6h ? Decrease metoprolol to 25 mg twice daily ? Hold Imdur, Exa ?continue tamsulosin ? Other possibilities include possible parkinsonian disease, patient does have a resting tremor, will consider Sinemet based on clinical progress ? Check orthostatic vitals postive, continue to monitor ? concerns for UTI given his recent history of nephrolithiasis, UA within normal limits ? Cardiac echo CONCLUSIONS Normal left ventricular size and systolic function, EF 78%. Moderate left ventricular hypertrophy. No regional wall motion abnormalities. Grade III/IV diastolic dysfunction (restrictive filling pattern), severely elevated filling pressures. Moderate aortic valve stenosis, mean gradient 21.7 mmHg, KHAI 1.4 cm squared. Peak velocity of 3.09 m/s. Mild to moderate aortic regurgitation. Mildly increased left atrial size. Mild mitral annular calcification. Trace to mild mitral valve regurgitation. Trace to mild tricuspid valve regurgitation. Estimated pulmonary artery peak systolic pressure 25 mmHg. This could be an underestimation because of the poor Doppler signals. There is no pericardial effusion. Comparison with the previous study from 06/17/2023 is not possible because of the differences in technical quality ? Carotid artery ultrasound -CONCLUSIONS Moderate heterogenous plaques of the right bifurcation with the Doppler features suggesting 50 to 69% stenosis Mild to moderate plaques of the left bifurcation and proximal ICA with the Doppler features suggesting less than 50% stenosis No significant stenosis in the vertebral, proximal external carotid or subclavian arteries based on the above findings No similar previous studies are available for comparison -Cannot do a CTA given his creatinine, continue aspirin, statin, Eliquis, needs to follow with Dr. Ceballos as outpatient ? No facial droop no slurring of his words, no focal neurologic deficits Moderate aortic valve stenosis Moderate aortic valve stenosis, mean gradient 21.7 mmHg, KHAI 1.4 cm squared. Peak velocity of 3.09 m/s. -Potentially playing a role in his dizziness, presyncope and is difficult to control A-fib A-fib with RVR ? Given patient's dizziness as above controlling his heart rates , Are proving to be difficult to control ? Medication dosing as above, ?continue Eliquis -consult cardiology Acute kidney injury ? Hold off on diuresis hold off on fluids Attestations 2 Medical Necessity Statement*: Patient requires hospitalization for orthostatic hypotension, polypharmacy presyncope aortic stenosis A-fib with RVR Diagnoses Dizziness R42 Pre-syncope R55 Acute kidney injury N17.9 Leukocytosis D72.829 Atrial fibrillation with RVR I48.91 Orthostatic hypotension I95.1 Polypharmacy Z79.899 Aortic stenosis I35.0
[2023-09-08] MEDS: amiodarone 200 mg Tablet PO (17:05)
[2023-09-08] MEDS: dilTIAZem 60 mg Tablet 30 MG PO ×2 (17:05→21:20)
--- NOTE | 2023-09-08 17:07 | P.CONIM_ITS ---
Providers/Reason For Consult 2 Consulting Physician/Specialty*: KASSANDRA Decker MD/cardiology Reason for Consult*: Patient with atrial fibrillation, on multiple AV melissa blocking agents, continues to have rapid ventricular rate Requesting Physician: Dr. Kevin Attending Physician: Casimiro Kevin MD Primary Care Provider: Caterina Barrett DO History of Present Illness History of Present Illness Pati Telles is a 77 year old male is admitted to hospital through the emergency room very present with complaints of dizziness/near syncopal episode. He was found in atrial fibrillation rapid ventricular rate. He also was found to have significant orthostatic hypotension. Cardiology consult is requested for further cardiac evaluation recommendations. This patient was initially diagnosed with atrial fibrillation when he presented with features of COPD exacerbation/pneumonia in June of this year. He was started on a beta-bushra, calcium bushra and amiodarone. Apparently he was seen again in the emergency room a week later where he presented with complaints of shortness of breath and features of sepsis. He was found to have a large pleural effusion, ureteric stone, mild hydronephrosis and markedly elevated white cell count. He was transferred to [facility] at that time . According to family, the patient spent 17 days in the hospital. He had some extensive workup. Details are not available at this time. He was seen by a hotel front desk agent in the hospital. He had a cardioversion x 2. Based on the history, he went back into atrial fibrillation. So he was advised to come back to the hospital after a few weeks for a repeat cardioversion. Since the patient was seen by Dr. Dozier in consult during his first hospitalization, the family wanted to see Dr. Dozier again for follow-up evaluation and further management here in this hospital. So she made an appointment to be seen by Dr. Dozier. Last Saturday, the patient was getting ready to go to [place] for a scheduled eye appointment, for his macular degeneration. While he was getting ready, all of a sudden he started becoming dizzy, lightheaded and some vertiginous symptoms. He felt like going to pass out. So his decided to bring him to our emergency room. He was found to be in atrial fibrillation with rapid ventricular rate. So he is admitted to the hospital for further evaluation management. In the hospital, he was found to have orthostatic hypotension with a systolic blood pressure dropping more than 20 points as he was standing up. So the dose of his beta-bushra and calcium bushra were cut back. He was taking the diltiazem 360 mg p.o. daily with the metoprolol succinate 100 mg p.o. daily and amiodarone 400 mg p.o. daily. The dose of the metoprolol was cut back to metoprolol tartrate 25 mg p.o. twice daily and diltiazem 30 mg p.o. every 8 hours. He is on amiodarone 200 mg p.o. daily. The heart rate seems to be staying in the 110-1 20 range on telemetry. Patient's also is complaining of him having extreme tremulousness which started before he ever was started on any of the heart medications. Patient has a history of a history of heart failure since June of this year. He been having lower extremity swelling. He has been taking the Lasix which helped the swelling. Never had any chest pain. He never had any stress test or cardiac catheterization. History of hypertension. No history for diabetes or dyslipidemia. No history for any CVA Has a history of peripheral arterial disease and carotid artery disease His both parents and one of the older brothers of congestive heart failure in the 70s and 80s. His younger brother has a permanent pacemaker. The patient has a history of heavy smoking abuse, 1 to 2 pack a day for 50 years or so. The last couple of years, he been trying to cut back. History of heavy alcohol abuse for 30 to 40 years which he quit 4-5 years ago. No other substance abuse. Review of Systems 2 Narrative: CONSTITUTIONAL: No fever or chills. EYES: As visual disturbances off and on. ENT: No hoarseness of voice, auditory disturbances or sore throat. CARDIOVASCULAR: As mentioned above. RESPIRATORY: Baseline shortness of breath GASTROINTESTINAL: No hematemesis or melena. GENITOURINARY: History of ureteric stones and hydronephrosis INTEGUMENTARY: No skin rashes or history of skin cancer. NEURO: History of fine tremor of the upper extremities/tremulousness PSYCHIATRIC: No history of psychosis or major depression. HEMATOLOGIC: No bleeding disorders or significant anemia. ENDOCRINE: No history of polyuria or polydipsia. MUSCULOSKELETAL: No recent joint pain or swelling. ALLERGY/IMMUNOLOGY: As mentioned above. Medications/Allergies Home Medications Medication Instructions Recorded Confirmed Last Taken Type raulonide-formoterol HFA 160 2 puff inhalation BID 11/02/21 09/06/23 09/06/23 History mcg-4.5 mcg/actuation aerosol inhaler (Symbicort) clonidine HCl 0.1 mg tablet 0.1 mg PO TID PRN Blood Pressure 11/02/21 09/06/23 Unknown History finasteride 5 mg tablet 5 mg PO DAILY 11/02/21 09/06/23 06/29/23 History gabapentin 300 mg capsule 300 mg PO TID 11/02/21 09/06/23 09/06/23 History tamsulosin 0.4 mg capsule 0.8 mg PO QAM 11/02/21 09/06/23 09/06/23 History tramadol 50 mg tablet 100 mg PO QID PRN Pain 11/02/21 09/06/23 06/16/23 History albuterol sulfate 2.5 mg/3 mL 2.5 mg inhalation Q6H PRN 06/16/23 09/06/23 06/16/23 History (0.083 %) solution for nebulization Shortness Of Breath Or Wheezing amiodarone 200 mg tablet (Pacerone) 400 mg (2 x 200 mg) PO DAILY #120 06/21/23 09/06/23 09/06/23 Rx tabs apixaban 5 mg tablet (Eliquis) 5 mg PO BID #60 tabs 06/21/23 09/06/23 09/06/23 Rx diltiazem HCl 360 mg 360 mg PO DAILY #90 tabs 06/21/23 09/06/23 09/06/23 Rx tablet,extended release 24 hr (Cardizem LA) furosemide 20 mg tablet (Lasix) 20 mg PO DAILY PRN Weight gain 06/21/23 09/06/23 09/05/23 Rx more than 3 pounds in 24 hours #90 tabs potassium chloride 10 mEq 10 meq PO DAILY PRN Only take when 06/21/23 09/06/23 09/05/23 Rx tablet,extended release you take Lasix #60 tabs bimatoprost 0.01 % eye drops 1 drp ophthalmic (eye) BEDTIME 06/29/23 09/06/23 09/05/23 History (Rika) pantoprazole 40 mg tablet,delayed 40 mg PO DAILY 06/29/23 09/06/23 09/05/23 History release vitamins A,C,A-duje-abftvn 4,296 1 cap PO QAM 06/29/23 09/06/23 09/06/23 History mcg-226 mg-90 mg capsule isosorbide mononitrate 30 mg 30 mg PO DAILY 09/06/23 09/06/23 09/06/23 History tablet,extended release 24 hr metoprolol succinate 100 mg 100 mg PO DAILY 09/06/23 09/06/23 09/06/23 History tablet,extended release 24 hr metoprolol succinate 25 mg 25 mg PO DAILY 09/06/23 09/06/23 09/06/23 History tablet,extended release 24 hr omega 8-pvc-egh-fish oil 1,000 mg 1 cap PO DAILY 09/06/23 09/06/23 09/06/23 History (120 mg-180 mg) capsule (Fish Oil) Allergies Allergy/AdvReac Type Severity Reaction Status Date / Time Alpha-Gal Allergy Severe ALGY-Rash Verified 09/06/23 12:55 (Pafyonmnb-Fhzdk-8,3-Gala lisinopril Allergy ADR-Faintin Verified 09/06/23 12:55 g Current Medications Generic Name Dose Route Start Last Admin Trade Name Freq PRN Reason Stop Dose Admin Albuterol/Ipratropium 3 ml 09/06/23 22:05 09/08/23 07:54 Ipratropium-Albuterol 3 Ml Neb INHALATION 3 ml Q6H.RESP PRN Administration SHORTNESS OF BREATH Amiodarone HCl 200 mg 09/08/23 16:10 09/08/23 17:05 Amiodarone 200 Mg Tablet PO 200 mg DAILY GAURAV Administration Apixaban 5 mg 09/06/23 19:49 09/08/23 17:06 Apixaban 5 Mg Tablet PO 5 mg BID GAURAV Administration Aspirin 81 mg 09/08/23 16:20 09/08/23 17:06 Aspirin 81 Mg Ec Tablet PO Not Given DAILY GAURAV Budesonide 0.5 mg 09/07/23 08:00 09/08/23 07:54 Budesonide 0.5 Mg/2 Ml Neb INHALATION 0.5 mg BID.RESPIRATORY GAURAV Administration Denture Adhesive 1 applic 09/07/23 17:21 09/07/23 18:04 Fixodent 39 Gm Tube DENTAL 1 applic PRN PRN Administration denture adhesive Diltiazem HCl 30 mg 09/08/23 16:10 09/08/23 17:05 Diltiazem 60 Mg Tablet PO 30 mg Q6H GAURAV Administration Gabapentin 300 mg 09/06/23 21:00 09/08/23 17:06 Gabapentin 300 Mg Capsule PO 300 mg TID GAURAV Administration Metoprolol Tartrate 25 mg 09/06/23 21:00 09/08/23 08:47 Metoprolol Tartrate 25 Mg Tablet PO 25 mg BID@0900,2100 GAURAV Administration Pantoprazole Sodium 40 mg 09/06/23 19:49 09/07/23 21:22 Pantoprazole 40 Mg Sdv IVP 40 mg Q24H GAURAV Administration Tamsulosin HCl 0.8 mg 09/07/23 06:00 09/08/23 06:35 Tamsulosin 0.4 Mg Capsule PO 0.8 mg QAM GAURAV Administration PFSH Acute 2 PFSH: Medical History Atrial fibrillation Diverticulitis Sepsis Pneumonia Peripheral vascular disease of lower extremity Gastritis Esophagitis History of stroke Hyperlipidemia Hypertension Surgical History H/O right knee surgery History of ankle surgery History of esophagogastroduodenoscopy (EGD) No significant past surgical history Family History Father CAD (coronary artery disease) Diabetes Mother CAD (coronary artery disease) Sister Cancer Denies family history of Hypertension Social History Smoking and tobacco/nicotine status: former use of tobacco/nicotine Quit status (tobacco/nicotine): has quit using Year quit tobacco: 2022 Former quit date comment: smoked up to 2 pack per day x 61 years Alcohol intake: former Year of sobriety/quit date alcohol: 2013 Substance/Drug Use: never Household members: spouse Housing: House Marital status: Number of children: 4 Pets and animals: No Vitals/I&O/Wt Last Vital Signs Temp 98.2 F 09/08/23 16:00 Pulse 112 H 09/08/23 16:00 Resp 24 H 09/08/23 16:00 BP 140/94 09/08/23 16:00 Pulse Ox 93 09/08/23 16:00 O2 Del Method Room Air 09/08/23 16:00 O2 Flow Rate 1 09/08/23 04:00 09/08/23 09/08/23 09/08/23 06:59 14:59 22:59 Intake Total 480 / 480 Output Total 700 / 1450 Balance -700 / -1110 480 / 480 Weight last 48 hrs Weight 190 lb 9.6 oz Weight 193 lb 12.8 oz Weight 193 lb 1.6 oz Physical Exam 2 Narrative: GENERAL: The patient is alert and oriented times three. Not in any acute distress. HEENT: No significant pallor, icterus or lymphadenopathy.Oral cavity: There are no mucous membrane lesions. NECK: Trachea appears to be central. No masses noted. No JVD or thyromegaly appreciated. RESPIRATORY: Chest is symmetrical. No intercostals muscle retraction or any accessory muscle activation. There is no chest wall tenderness. Breath sounds are heard bilaterally. No rales or rhonchi heard. No evidence of any consolidation. BREASTS: Deferred. HEART: The heart sounds are normal. No S3 or S4. Ejection systolic murmur grade 3 or 6 in the aortic area. No diastolic murmurs.. No pericardial rub ABDOMEN: No vessel pulsations or distention. No tenderness. No organomegaly appreciated. Bowel sounds are normally heard. : Deferred. RECTAL: Deferred. LYMPHATIC: No lymphadenopathy noted in the neck. EXTREMITIES: Trace edema with no cyanosis . No clubbing. MUSCULOSKELETAL: No acute joint deformities or swelling SKIN: There are no significant rashes or ecchymosis NEUROPSYCHIATRIC: The patient is alert and oriented x3. Appears to be in a good mood. No tremors or rigidity noted. Data 09/08/23 02:41 09/08/23 02:41 Other Labs: Laboratory Last Values WBC 10.68 10^3/uL (3.29-11.43) 09/08/23 02:41 RBC 3.39 10^6/uL (3.85-5.65) L 09/08/23 02:41 Hgb 10.00 g/dL (11.27-16.99) L 09/08/23 02:41 Hct 31.4 % (37-53) L 09/08/23 02:41 MCV 92.6 fl (82-101) 09/08/23 02:41 MCH 29.5 pg (27-33) 09/08/23 02:41 MCHC 31.8 g/dL (30-55) 09/08/23 02:41 RDW 16.6 % (12.1-15.1) H 09/08/23 02:41 Plt Count 361 10^3/cmm (157-399) 09/08/23 02:41 MPV 10.5 fL (7.4-10.4) H 09/08/23 02:41 Neut % (Auto) 71.2 % 09/08/23 02:41 Lymph % (Auto) 16.9 % 09/08/23 02:41 [place] % (Auto) 8.6 % 09/08/23 02:41 Eos % (Auto) 2.4 % 09/08/23 02:41 Baso % (Auto) 0.3 % 09/08/23 02:41 Neut # (Auto) 7.60 10^3/uL (1.8-7.7) 09/08/23 02:41 Lymph # (Auto) 1.8 10^3/uL (0.8-4.8) 09/08/23 02:41 [place] # (Auto) 0.9 10^3/uL (0.2-0.9) 09/08/23 02:41 Eos # (Auto) 0.3 10^3/uL (0.0-0.8) 09/08/23 02:41 Baso # (Auto) 0.0 10^3/uL (0.0-0.1) 09/08/23 02:41 Nucleated RBC % (auto) 0 % 09/08/23 02:41 Nucleated RBCs # 0.0 /100WBC 09/08/23 02:41 ESR 44 mm/hr (0-10) H 09/06/23 16:49 PT 18.00 SECONDS (12.1-14.9) H 09/06/23 13:17 INR 1.44 (0.8-1.2) H 09/06/23 13:17 Sodium 143 mmol/L (136-145) 09/08/23 02:41 Potassium 3.9 mmol/L (3.5-5.1) 09/08/23 02:41 Chloride 107 mmol/L (98-107) 09/08/23 02:41 Carbon Dioxide 24 mmol/L (22-29) 09/08/23 02:41 Anion Gap 15.9 (5-19) 09/08/23 02:41 BUN 19 mg/dL (8-23) 09/08/23 02:41 Creatinine 1.9 mg/dL (0.7-1.2) H 09/08/23 02:41 GFR Calculation Not Reportable 09/08/23 02:41 Glucose 112 mg/dL (65-115) 09/08/23 02:41 Estimat Average Glucose 103 09/06/23 20:34 Hemoglobin A1c 5.2 % (4.0-6.0) 09/06/23 20:34 Calculated Osmolality 299 mOsm/kg (285-295) H 09/08/23 02:41 Lactic Acid 1.4 mmol/L (0.5-2.2) 09/06/23 16:49 Calcium 8.0 mg/dL (8.5-10.5) L 09/08/23 02:41 Phosphorus 4.0 mg/dL (2.5-4.5) 09/06/23 16:49 Magnesium 2.0 mg/dL (1.7-2.3) 09/06/23 16:49 Iron 26 ug/dL (59-158) L 09/06/23 16:49 Ferritin 406 ng/mL (30-400) H 09/06/23 16:49 Total Bilirubin 0.4 mg/dL (0.15-1.2) 09/06/23 13:17 AST 17 U/L (0-40) 09/06/23 13:17 ALT 25 U/L (0-41) 09/06/23 13:17 Alkaline Phosphatase 86 U/L (40-130) 09/06/23 13:17 Creatine Kinase 38 U/L (39-308) L 09/06/23 16:49 Troponin T Baseline 56 ng/L (0-15) H 09/06/23 13:17 Troponin T 120 Minute 59.83 ng/L (0-15) H 09/06/23 15:21 Delta Troponin T 3.83 ABS# (0-10) 09/06/23 15:21 Troponin T Hi Sens 6Hr 48.99 ng/L (0-15) H 09/06/23 20:34 Troponin T Hi Sens 6Hr Delta -7.01 ng/L (0-12) L 09/06/23 20:34 C-Reactive Protein 68.8 mg/L (0.0-4.9) H 09/06/23 16:49 NT-Pro-B Natriuret Pep 3669 pg/mL (0-450) H 09/06/23 16:49 Total Protein 6.0 g/dL (6.6-8.7) L 09/06/23 13:17 Albumin 3.5 g/dL (3.5-5.2) 09/06/23 13:17 Globulin 2.5 g/dL (1.3-4.6) 09/06/23 13:17 Triglycerides 88 mg/dL (0-150) 09/06/23 20:34 Cholesterol 184 mg/dL (0-200) 09/06/23 20:34 LDL Cholesterol, Calc 121 mg/dL (50-129) 09/06/23 20:34 HDL Cholesterol 45 mg/dL (60-100) L 09/06/23 20:34 LDL/HDL Ratio 2.69 RATIO (0.00-3.22) 09/06/23 20:34 Cholesterol/HDL Ratio 4.09 mg/dL (1.0-5.00) 09/06/23 20:34 Vitamin B12 1205 pg/mL (232-1245) 09/06/23 16:49 Folate > 20.0 ng/mL (4.5-32.2) 09/06/23 16:49 Procalcitonin 0.10 ng/mL (0-0.5) 09/06/23 16:49 TSH 4.05 uIU/mL (0.27-4.20) 09/06/23 16:49 Urine Color Yellow (Yellow) 09/06/23 18:50 Urine Appearance Clear (CLEAR) 09/06/23 18:50 Urine pH 6 (5-7) 09/06/23 18:50 Ur Specific [place] 1.005 (1.005-1.030) 09/06/23 18:50 Urine Protein Trace (Negative) 09/06/23 18:50 Urine Glucose (UA) Norm (Normal) 09/06/23 18:50 Urine Ketones Negative (Negative) 09/06/23 18:50 Urine Blood Neg (Negative) 09/06/23 18:50 Urine Nitrate Negative (Negative) 09/06/23 18:50 Urine Bilirubin Neg (Negative) 09/06/23 18:50 Urine Urobilinogen Neg mg/dL (Negative) 09/06/23 18:50 Ur Leukocyte Esterase Negative (Negative) 09/06/23 18:50 Urine RBC 0-4 /hpf (0-2) H 09/06/23 18:50 Urine WBC 0-4 /hpf (0-5) H 09/06/23 18:50 Ur Squamous Epith Cells 0-4 /hpf (0-5) H 09/06/23 18:50 Amorphous Sediment Not Reportable 09/06/23 18:50 Urine Bacteria Trace /hpf (NONE) 09/06/23 18:50 Hyaline Casts 5-10 /lpf H 09/06/23 18:50 Urine Mucus 1+ /hpf 09/06/23 18:50 Urine Opiates Screen Negative ng/mL (Negative) 09/06/23 18:50 Ur Barbiturates Screen Negative ng/mL (Negative) 09/06/23 18:50 Ur Phencyclidine Scrn Negative ng/mL (Negative) 09/06/23 18:50 Ur Amphetamines Screen Negative ng/mL (Negative) 09/06/23 18:50 U Benzodiazepines Scrn Negative ng/mL (Negative) 09/06/23 18:50 Urine Cocaine Screen Negative ng/mL (Negative) 09/06/23 18:50 U Marijuana (THC) Screen Negative ng/mL (Negative) 09/06/23 18:50 Ethyl Alcohol < 10 mg/dL (0-10) 09/06/23 16:49 Micro: Microbiology 09/06/23 16:51 Blood Culture - Preliminary Blood NEGATIVE TO DATE 09/06/23 16:49 Blood Culture - Preliminary Blood NEGATIVE TO DATE Other data: Echocardiogram from 09/07/2023 Normal left ventricular size and systolic function, EF 78%. Moderate left ventricular hypertrophy. No regional wall motion abnormalities. Grade III/IV diastolic dysfunction (restrictive filling pattern), severely elevated filling pressures. Moderate aortic valve stenosis, mean gradient 21.7 mmHg, KHAI 1.4 cm squared. Peak velocity of 3.09 m/s. Mild to moderate aortic regurgitation. Mildly increased left atrial size. Mild mitral annular calcification. Trace to mild mitral valve regurgitation. Trace to mild tricuspid valve regurgitation. Estimated pulmonary artery peak systolic pressure 25 mmHg. This could be an underestimation because of the poor Doppler signals. There is no pericardial effusion. Comparison with the previous study from 06/17/2023 is not possible because of the differences in technical quality Carotid duplex study from 09/06/2023 Moderate heterogenous plaques of the right bifurcation with the Doppler features suggesting 50 to 69% stenosis Mild to moderate plaques of the left bifurcation and proximal ICA with the Doppler features suggesting less than 50% stenosis No significant stenosis in the vertebral, proximal external carotid or subclavian arteries based on the above findings No similar previous studies are available for comparison A&P Assessment and plan (1) Atrial fibrillation with tachycardic ventricular rate: Apparently this patient has not been responding to AV melissa blocking agents or amiodarone. He had a cardioversion x 2 that also did not help. Since that he has been taking amiodarone, it might be appropriate to consider cardioversion 1 more time. If it fails, he may require catheter-based options. Considering the possibility of coronary ischemia causing the arrhythmia, it might be appropriate to consider a Myocardial perfusion imaging, if it has not been done at the [facility], during the recent hospitalization. We need to review the medical records from [facility]. (2) Orthostatic hypotension: The orthostatic vitals are improving. For the time being may continue on the current treatment. (3) Aortic stenosis: The aortic valve stenosis is moderate. He may not require any specific intervention at this point. Qualifiers: Cardiac valve disease etiology: nonrheumatic Qualified Code(s): I35.0 - Nonrheumatic aortic (valve) stenosis (4) Acute on chronic diastolic (congestive) heart failure: Patient may be carefully treated with diuretics. Consider ischemic workup. (5) Peripheral arterial disease: Patient is currently asymptomatic. Will be focusing on treating the risk factors at this point. (6) Carotid artery disease: The stenosis on the right side of was found to be less than 70%. May continue the risk modifying measures. Qualifiers: Carotid artery disease type: stenosis Laterality: bilateral Qualified Code(s): I65.23 - Occlusion and stenosis of bilateral carotid arteries (7) Dyslipidemia: Appropriate to start the patient on Lipitor 40 mg now and daily (8) Benign hypertension: Because of the orthostatic hypotension, may hold off on any aggressive management at this time. Plan I may keep the patient n.p.o. after midnight. Since the patient was scheduled to see Dr. Dozier, Dr. Dozier will decide about further management in the morning. Thank for the opportunity to eval this patient make these recommendations Consult Attestations 2 Medical Necessity Statement: Patient requires continued hospital stay for close monitoring and further management Coding Level of Care Code 55522 Diagnoses Atrial fibrillation with tachycardic ventricular rate I48.91 Orthostatic hypotension I95.1 Nonrheumatic aortic valve stenosis I35.0 Cardiac valve disease etiology: nonrheumatic Acute on chronic diastolic (congestive) heart failure I50.33 Peripheral arterial disease I73.9 Bilateral carotid artery stenosis I65.23 Carotid artery disease type: stenosis Laterality: bilateral Dyslipidemia E78.5 Benign hypertension I10
[2023-09-08] MEDS: atorvastatin 40 mg Tablet PO (20:21)
[2023-09-08] MEDS: pantoprazole 40 mg SDV IVP (20:21)
[2023-09-09] VITALS (16 sets, daily range): BP systolic 100–143; BP diastolic 63–89; PULSE 93–124; RESP 15–22; TEMP 36.5–36.9; O2SAT 92–97
[2023-09-09 04:02] LABS: Basophils % 0.3 %; Eosinophils # 0.3 10^3/uL (0.0-0.8); Eosinophils % 2.6 %; Hematocrit 34.1 % (37-53); Lymphocytes # 1.9 10^3/uL (0.8-4.8); Lymphocytes % 16.2 %; Mean Corpuscular HGB Conc 31.4 g/dL (30-55); Mean Corpuscular Hemoglobin 28.8 pg (27-33); Mean Corpuscular Volume 91.9 fl (82-101); Mean Platelet Volume 10.1 fL (7.4-10.4); Monocytes % 8.8 %; Neutrophils # 8.22 10^3/uL (1.8-7.7); Neutrophils % 71.2 %; Nucleated Red Blood Cells % 0 %; Platelet Count 380 10^3/cmm (157-399); Red Blood Count 3.71 10^6/uL (3.85-5.65); Red Cell Distribution Width 16.6 % (12.1-15.1); White Blood Count 11.55 10^3/uL (3.29-11.43)
[2023-09-09 04:25] LABS: Anion Gap 13.1 (5-19); Blood Urea Nitrogen 19 mg/dL (8-23); Calcium 8.4 mg/dL (8.5-10.5); Carbon Dioxide 25 mmol/L (22-29); Chloride 110 mmol/L (98-107); Creatinine Clr Calc Pharmacy 38.1918; Glucose 121 mg/dL (65-115); Osmolality Calculated 302 mOsm/kg (285-295); Potassium 4.1 mmol/L (3.5-5.1); Sodium 144 mmol/L (136-145)
[2023-09-09] MEDS: tamsulosin 0.4 mg Capsule 0.800000000000000044 MG PO (05:05)
[2023-09-09] MEDS: dilTIAZem 60 mg Tablet 30 MG PO ×4 (05:05→22:13)
--- NOTE | 2023-09-09 07:39 | P.PN_ITS ---
Subjective 2 Subjective: Patient continues to be in atrial fibrillation. Vitals/I&O/Wt Last Vital Signs Temp 98.0 F 09/09/23 04:00 Pulse 93 09/09/23 05:47 Resp 19 H 09/09/23 04:00 BP 143/89 09/09/23 04:00 Pulse Ox 93 09/09/23 04:00 O2 Del Method Nasal Cannula 09/09/23 04:00 O2 Flow Rate 1 09/08/23 04:00 09/08/23 09/09/23 09/09/23 22:59 06:59 14:59 Intake Total 240 / 720 Output Total 400 / 400 0 / 400 Balance -160 / 320 0 / 320 Weight last 48 hrs Weight 187 lb Weight 190 lb 9.6 oz Physical Exam 2 Narrative: GENERAL: Patient is alert NECK: No jugular vein distension. [] HEENT: No cyanosis. No icterus. No pallor. [] HEART: Irregularly irregular, tachycardia LUNGS: Clear to auscultate bilaterally. [] CENTRAL NERVOUS SYSTEM: Grossly nonfocal. [] EXTREMITIES: Lower extremities with 1+ edema bilaterally. Data 09/10/23 03:12 09/10/23 03:12 A&P Assessment and plan (1) Atrial fibrillation with tachycardic ventricular rate: (2) Orthostatic hypotension: (3) Aortic stenosis: Qualifiers: Cardiac valve disease etiology: nonrheumatic Qualified Code(s): I35.0 - Nonrheumatic aortic (valve) stenosis (4) Acute on chronic diastolic (congestive) heart failure: (5) Peripheral arterial disease: (6) Carotid artery disease: Qualifiers: Carotid artery disease type: stenosis Laterality: bilateral Qualified Code(s): I65.23 - Occlusion and stenosis of bilateral carotid arteries (7) Dyslipidemia: (8) Benign hypertension: Plan Patient had unsuccessful attempt at cardioversion twice at [facility] however he was acutely sick at that time. Now he is on amiodarone and Eliquis. We will plan on CLIFF cardioversion for tomorrow. N.p.o. past midnight. At some point, will need ischemic workup with a stress test. Thank you for involving us with care of this patient. We will continue to follow. Please call with questions Attestations 2 Medical Necessity Statement*: Care expected to cross 2 midnights. Coding Level of Care Code Acute Code for Chg Fwd Diagnoses Atrial fibrillation with tachycardic ventricular rate I48.91 Orthostatic hypotension I95.1 Nonrheumatic aortic valve stenosis I35.0 Cardiac valve disease etiology: nonrheumatic Acute on chronic diastolic (congestive) heart failure I50.33 Peripheral arterial disease I73.9 Bilateral carotid artery stenosis I65.23 Carotid artery disease type: stenosis Laterality: bilateral Dyslipidemia E78.5 Benign hypertension I10
[2023-09-09] MEDS: budesonide 0.5 mg/2 mL Neb INHALATION ×2 (08:56→21:10)
[2023-09-09] MEDS: ipratropium-albuterol 3 mL Neb INHALATION (08:56)
[2023-09-09] MEDS: amiodarone 200 mg Tablet PO (09:42)
[2023-09-09] MEDS: gabapentin 300 mg Capsule PO ×3 (09:42→22:12)
[2023-09-09] MEDS: metoprolol tartrate 25 mg Tablet PO ×2 (09:42→22:12)
[2023-09-09] MEDS: aspirin 81 mg EC Tablet PO (09:43)
[2023-09-09] MEDS: apixaban 5 mg Tablet PO ×2 (09:43→18:18)
--- NOTE | 2023-09-09 10:16 | PC.SOCIAL ---
IMM Update pg 2 of IMM Updated and reviewed w/ patient. Copy provided and copy dated, initialed and placed in chart.
--- NOTE | 2023-09-09 12:08 | P.PN_ITS ---
Subjective 2 Subjective: Plan for cardioversion on Saturday I will let him eat today No active chest pain A-fib RVR heart rate consistently above 116 -120 which gets worse on ambulation Vitals/I&O/Wt Last Vital Signs Temp 98 F 09/09/23 08:30 Pulse 101 H 09/09/23 09:04 Resp 18 09/09/23 08:56 BP 137/64 09/09/23 08:30 Pulse Ox 92 09/09/23 08:56 O2 Del Method Room Air 09/09/23 08:56 O2 Flow Rate 1 09/08/23 04:00 09/08/23 09/09/23 09/09/23 22:59 06:59 14:59 Intake Total 240 / 720 Output Total 400 / 400 0 / 400 Balance -160 / 320 0 / 320 Weight last 48 hrs Weight 84.822 kg Weight 86.455 kg Physical Exam 2 Narrative: Euvolemic Awake and alert GCS 15 Pleasant cooperative S1, S2 A-fib RVR Pleasant cooperative nonfocal neuroexam Currently on room air Data 09/09/23 03:32 09/09/23 03:32 A&P Assessment and plan (1) Acute on chronic diastolic (congestive) heart failure: (2) Aortic stenosis: Qualifiers: Cardiac valve disease etiology: nonrheumatic Qualified Code(s): I35.0 - Nonrheumatic aortic (valve) stenosis (3) Atrial fibrillation: Qualifiers: Atrial fibrillation type: unspecified Qualified Code(s): I48.91 - Unspecified atrial fibrillation (4) Atrial fibrillation with tachycardic ventricular rate: (5) Atrial fibrillation with RVR: (6) Peripheral arterial disease: (7) Pre-syncope: Plan A-fib RVR Plan for cardioversion on Saturday Continue Eliquis and AV melissa blocking agents, spoke with the acute care physical therapist, plan for cardioversion in the a.m. Hemodynamically stable: No active chest pain shortness of breath or confusion Diastolic CHF exacerbation: Improving Further plan will be made after cardioversion tomorrow He may need referral to tertiary center for chronic A-fib if cardioversion fails Cardiac diet today N.p.o. after midnight Resting tremors without acute exacerbation Moderate aortic valve stenosis with EF 78% Full code Attestations 2 Medical Necessity Statement*: Continue hospitalization Diagnoses Acute on chronic diastolic (congestive) heart failure I50.33 Nonrheumatic aortic valve stenosis I35.0 Cardiac valve disease etiology: nonrheumatic Atrial fibrillation I48.91 Atrial fibrillation type: unspecified Atrial fibrillation with tachycardic ventricular rate I48.91 Atrial fibrillation with RVR I48.91 Peripheral arterial disease I73.9 Pre-syncope R55
[2023-09-09] MEDS: pantoprazole 40 mg SDV IVP (22:11)
[2023-09-09] MEDS: atorvastatin 40 mg Tablet PO (22:12)
[2023-09-10] VITALS (15 sets, daily range): BP systolic 94–157; BP diastolic 59–102; PULSE 73–135; RESP 17–30; TEMP 36.6–36.8; O2SAT 92–100
[2023-09-10 03:35] LABS: Basophils % 0.3 %; Eosinophils # 0.5 10^3/uL (0.0-0.8); Eosinophils % 4.3 %; Hematocrit 32.9 % (37-53); Lymphocytes % 17.1 %; Mean Corpuscular HGB Conc 31.6 g/dL (30-55); Mean Corpuscular Hemoglobin 29.2 pg (27-33); Mean Corpuscular Volume 92.4 fl (82-101); Mean Platelet Volume 9.8 fL (7.4-10.4); Neutrophils # 7.86 10^3/uL (1.8-7.7); Neutrophils % 68.4 %; Nucleated Red Blood Cells % 0 %; Platelet Count 386 10^3/cmm (157-399); Red Blood Count 3.56 10^6/uL (3.85-5.65); Red Cell Distribution Width 16.6 % (12.1-15.1); White Blood Count 11.48 10^3/uL (3.29-11.43)
[2023-09-10 04:00] LABS: Anion Gap 12.6 (5-19); Blood Urea Nitrogen 20 mg/dL (8-23); Calcium 8.6 mg/dL (8.5-10.5); Carbon Dioxide 24 mmol/L (22-29); Chloride 107 mmol/L (98-107); Creatinine Clr Calc Pharmacy 40.1129; Glucose 105 mg/dL (65-115); Osmolality Calculated 293 mOsm/kg (285-295); Potassium 3.6 mmol/L (3.5-5.1); Sodium 140 mmol/L (136-145)
--- NOTE | 2023-09-10 07:13 | P.PN_ITS ---
Subjective 2 Subjective: Patient was successfully cardioverted back to normal rhythm. Vitals/I&O/Wt Last Vital Signs Temp 98.2 F 09/10/23 03:56 Pulse 115 H 09/10/23 05:58 Resp 18 09/10/23 03:56 BP 138/59 09/10/23 03:56 Pulse Ox 95 09/10/23 03:56 O2 Del Method Room Air 09/09/23 21:10 O2 Flow Rate 1 09/08/23 04:00 09/09/23 09/10/23 09/10/23 22:59 06:59 14:59 Intake Total 240 / 480 Output Total 500 / 500 350 / 850 Balance -260 / -20 -350 / -370 Weight last 48 hrs Weight 184 lb 4.8 oz Weight 187 lb Physical Exam 2 Narrative: GENERAL: Patient is alert NECK: No jugular vein distension. [] HEENT: No cyanosis. No icterus. No pallor. [] HEART: Regular LUNGS: Clear to auscultate bilaterally. [] CENTRAL NERVOUS SYSTEM: Grossly nonfocal. [] EXTREMITIES: Lower extremities with 1+ edema bilaterally. Data 09/10/23 03:12 09/10/23 03:12 A&P Assessment and plan (1) Atrial fibrillation with tachycardic ventricular rate: (2) Orthostatic hypotension: (3) Aortic stenosis: Qualifiers: Cardiac valve disease etiology: nonrheumatic Qualified Code(s): I35.0 - Nonrheumatic aortic (valve) stenosis (4) Acute on chronic diastolic (congestive) heart failure: (5) Peripheral arterial disease: (6) Carotid artery disease: Qualifiers: Carotid artery disease type: stenosis Laterality: bilateral Qualified Code(s): I65.23 - Occlusion and stenosis of bilateral carotid arteries (7) Dyslipidemia: (8) Benign hypertension: Plan Patient was successfully cardioverted after CLIFF. We will continue with Eliquis and amiodarone. Continue metoprolol and Cardizem. Monitor on telemetry for today. Can be discharged home tomorrow if stable. Attestations 2 Medical Necessity Statement*: Care expected to cross 2 midnights. Coding Level of Care Code Acute Code for [facility] Fwd Diagnoses Atrial fibrillation with tachycardic ventricular rate I48.91 Orthostatic hypotension I95.1 Nonrheumatic aortic valve stenosis I35.0 Cardiac valve disease etiology: nonrheumatic Acute on chronic diastolic (congestive) heart failure I50.33 Peripheral arterial disease I73.9 Bilateral carotid artery stenosis I65.23 Carotid artery disease type: stenosis Laterality: bilateral Dyslipidemia E78.5 Benign hypertension I10
[2023-09-10] MEDS: amiodarone 200 mg Tablet PO (08:45)
[2023-09-10] MEDS: tamsulosin 0.4 mg Capsule 0.800000000000000044 MG PO (08:46)
[2023-09-10] MEDS: dilTIAZem 60 mg Tablet 30 MG PO ×3 (08:46→23:25)
[2023-09-10] MEDS: aspirin 81 mg EC Tablet PO (08:46)
[2023-09-10] MEDS: apixaban 5 mg Tablet PO ×2 (08:46→16:53)
[2023-09-10] MEDS: gabapentin 300 mg Capsule PO ×3 (08:46→21:19)
[2023-09-10] MEDS: metoprolol tartrate 25 mg Tablet PO ×2 (08:46→21:19)
[2023-09-10] MEDS: sodium chloride 0.9% 1,000 ML 75 ML IV (11:27)
--- NOTE | 2023-09-10 11:29 | W.PM.OPSUD ---
Surgery/Procedure H&P Update DATE OF PROCEDURE: September 10, 2023 DATE H&P PERFORMED: 09/08/23 H&P UPDATE INFORMATION: I have reviewed H&P completed within last 30 days, I have examined patient prior to procedure and No changes to prior documentation PREOP DIAGNOSIS: Atrial fibrillation with RVR PRIMARY INDICATION FOR PROCEDURE: Atrial fibrillation with RVR PLANNED PROCEDURE: Transesophageal echocardiogram with cardioversion Anesthesia team available for sedation PATIENT REASSESSED PRIOR TO SEDATION, WITH NO CHANGE NOTED: Yes
--- NOTE | 2023-09-10 11:30 | USCV_ITS ---
Pati Telles Age: 77 Gender: M : 1945 Exam Date: 09/10/2023 11:49 Ordering Phys: Ethan Dozier M.D ([email or web address]) Technologist: Exam Location: [facility] [place] Indication: afib BP: / HR: Rhythm: Sinus Technical Quality: Adequate MEASUREMENTS (Male / Female) Normal Values Medications Per anesthesia team Complications None Proc. Components After anesthesia team administered sedation, we proceeded with advancing the CLIFF probe. FINDINGS Left Ventricle Left ventricle is normal in size with. LV systolic function is normal. Right Ventricle Normal size and function. Right Atrium Dilated Left Atrium Dilated. LA Appendage No left atrial appendage thrombus IA Septum Grossly normal Mitral Valve Structurally normal mitral valve. Mild mitral regurgitation. Aortic Valve Aortic valve is thickened. Tricuspid Valve Grossly normal Pulmonic Valve Not well visualized Pericardium Normal Aorta Mild atherosclerotic plaque CONCLUSIONS LV systolic function is normal. Biatrial enlargement. No left atrial appendage thrombus Mild mitral regurgitation Mild atherosclerotic aortic plaque. Ethan Dozier MD (Electronically Signed) Final Date: 15 Sep 2023 14:07 S
--- NOTE | 2023-09-10 14:32 | PM.PROC ---
Procedure Note: Date of procedure: 09/10/23 Pre-procedure diagnosis: Atrial fibrillation with RVR Post-procedure diagnosis: other (Atrial fibrillation with RVR) Procedure: After anesthesia team administered sedation, we proceeded with transesophageal echocardiogram. Left atrial appendage thrombus was ruled out. We then proceeded with synchronized DCCV with 200 J shock x 1. Patient converted successfully back to normal sinus rhythm. Performing Provider: Ethan Dozier Complications: None Condition: stable Disposition: no change Coding Level of Care Code Acute Code for [facility]
--- NOTE | 2023-09-10 14:34 | P.PN_ITS ---
Subjective 2 Subjective: Status post cardioversion Plan to watch 1 more day No active symptoms Vitals/I&O/Wt Last Vital Signs Temp 97.9 F 09/10/23 12:00 Pulse 75 09/10/23 12:00 Resp 20 H 09/10/23 12:00 BP 94/59 09/10/23 12:00 Pulse Ox 100 09/10/23 12:00 O2 Del Method Nasal Cannula 09/10/23 12:00 O2 Flow Rate 1 09/08/23 04:00 09/09/23 09/10/23 09/10/23 22:59 06:59 14:59 Intake Total 240 / 480 240 / 240 Output Total 500 / 500 350 / 850 350 / 350 Balance -260 / -20 -350 / -370 -110 / -110 Weight last 48 hrs Weight 83.597 kg Weight 84.822 kg Physical Exam 2 Narrative: Awake alert Sinus rhythm Nonfocal neuroexam Euvolemic Pleasant cough Currently on room air Data 09/10/23 03:12 09/10/23 03:12 A&P Assessment and plan (1) Polypharmacy: (2) Orthostatic hypotension: (3) Aortic stenosis: Qualifiers: Cardiac valve disease etiology: nonrheumatic Qualified Code(s): I35.0 - Nonrheumatic aortic (valve) stenosis (4) Atrial fibrillation: Qualifiers: Atrial fibrillation type: unspecified Qualified Code(s): I48.91 - Unspecified atrial fibrillation (5) Peripheral arterial disease: (6) Pre-syncope: Plan Will watch him 1 more day after cardioversion Continue antiarrhythmic medications along Eliquis IV fluids started for low blood pressure as well He is asymptomatic Give him referral to see Dr. Ansari for his carotid artery disease Attestations 2 Medical Necessity Statement*: Discharge tomorrow Coding Level of Care Code Acute Code for [facility] Fwd Diagnoses Polypharmacy Z79.899 Orthostatic hypotension I95.1 Nonrheumatic aortic valve stenosis I35.0 Cardiac valve disease etiology: nonrheumatic Atrial fibrillation I48.91 Atrial fibrillation type: unspecified Peripheral arterial disease I73.9 Pre-syncope R55
[2023-09-10] MEDS: budesonide 0.5 mg/2 mL Neb INHALATION (20:21)
[2023-09-10] MEDS: ipratropium-albuterol 3 mL Neb INHALATION (20:21)
[2023-09-10] MEDS: atorvastatin 40 mg Tablet PO (21:18)
[2023-09-10] MEDS: pantoprazole 40 mg SDV IVP (21:18)
[2023-09-10] MEDS: sennosides-docusate Tablet 2 TAB PO (23:25)
[2023-09-11] VITALS (8 sets, daily range): BP systolic 127–159; BP diastolic 68–88; PULSE 75–84; RESP 18–26; TEMP 36.6–36.9; O2SAT 94–96
[2023-09-11] MEDS: dilTIAZem 60 mg Tablet 30 MG PO ×2 (06:14→11:32)
[2023-09-11] MEDS: tamsulosin 0.4 mg Capsule 0.800000000000000044 MG PO (06:14)
--- NOTE | 2023-09-11 07:31 | P.PN_ITS ---
Vitals/I&O/Wt Last Vital Signs Temp 98.2 F 09/11/23 04:00 Pulse 79 09/11/23 06:00 Resp 22 H 09/11/23 04:00 BP 159/77 09/11/23 04:00 Pulse Ox 94 09/11/23 04:00 O2 Del Method Room Air 09/11/23 04:00 O2 Flow Rate 1 09/08/23 04:00 09/10/23 09/11/23 09/11/23 22:59 06:59 14:59 Intake Total 360 / 716.25 350 / 1066.25 Output Total 300 / 650 Balance 360 / 366.25 50 / 416.25 Weight last 48 hrs Weight 189 lb Weight 184 lb 4.8 oz Data 09/10/23 03:12 09/10/23 03:12 Attestations 2 Medical Necessity Statement*: Care expected to cross 2 midnights. Coding Level of Care Code Acute Code for [facility]
--- NOTE | 2023-09-11 09:43 | PM.DCS ---
Discharge Providers Date of Admission: 09/06/23 17:04 Date of Discharge: September 11, 2023 Attending Provider at Admission: Casimiro Kevin MD Attending Provider at Discharge: David Arellano MD Primary Care Provider: Caterina Barrett DO Diagnoses at Discharge Discharge Diagnosis (1) Atrial fibrillation with tachycardic ventricular rate: Status: Acute (2) Orthostatic hypotension: Status: Acute (3) Aortic stenosis: Status: Acute Qualifiers: Cardiac valve disease etiology: nonrheumatic Qualified Code(s): I35.0 - Nonrheumatic aortic (valve) stenosis (4) Acute on chronic diastolic (congestive) heart failure: Status: Acute (5) Peripheral arterial disease: Status: Acute (6) Carotid artery disease: Status: Acute Qualifiers: Carotid artery disease type: stenosis Laterality: bilateral Qualified Code(s): I65.23 - Occlusion and stenosis of bilateral carotid arteries (7) Dyslipidemia: Status: Acute (8) Benign hypertension: Status: Acute Reason for Visit Reason for Visit: dizzy Hospital Course Hospital Course 77-year male with history of chronic A-fib, presented to the hospital with chief complaint of dizziness, his symptoms are related to tachyarrhythmia A-fib RVR, with p.o. AV node blocking agent patient became bradycardic his medication were adjusted, cardiology was consulted who recommended cardioversion for symptomatic A-fib RVR. Dr. Dozier did cardioversion on 09/10/2023. Echo showed preserved ejection fraction, grade 3 diastolic dysfunction, moderate aortic valve stenosis, patient also has carotid disease 50 to 69% stenosis will need vascular surgeon follow-up at [place]. Patient will also need referral for ablation in case he becomes symptomatic again with A-fib RVR, will resume Eliquis at the time of discharge along AV melissa blocking agents. After cardioversion patient has remained in sinus rhythm on amiodarone, beta-bushra and catheter and a bushra, cardiology has recommended to resume all 3 medications along Eliquis. Patient has been consulted to see vascular surgeon in [place] for carotid disease. Orthostatics negative Physical Exam Narrative: Awake and alert Pleasant cooperative Euvolemic GCS 15 Nonfocal neuroexam Sinus rhythm Orthostatics negative Discharge Data Studies Completed and Pending Completed Studies During Hospitalization Category Date Time Status CT head wo con* [id number] Stat Cat Scan 09/06/23 14:04 Completed XR chest 1V portable [id number] Stat Exams 09/06/23 12:40 Completed CV carotid duplex BI* [id number] Stat Ultrasound 09/06/23 16:22 Completed CV. echo complete* [id number] Stat Ultrasound 09/07/23 06:00 Completed Pending at discharge Category Date Time Status Blood Culture Stat Lab 09/06/23 16:51 Results CV. echo transesophageal [id number] Routine Ultrasound 09/10/23 11:30 Taken Laboratory Results WBC 11.48 10^3/uL (3.29-11.43) H 09/10/23 03:12 RBC 3.56 10^6/uL (3.85-5.65) L 09/10/23 03:12 Hgb 10.40 g/dL (11.27-16.99) L 09/10/23 03:12 Hct 32.9 % (37-53) L 09/10/23 03:12 MCV 92.4 fl (82-101) 09/10/23 03:12 MCH 29.2 pg (27-33) 09/10/23 03:12 MCHC 31.6 g/dL (30-55) 09/10/23 03:12 RDW 16.6 % (12.1-15.1) H 09/10/23 03:12 Plt Count 386 10^3/cmm (157-399) 09/10/23 03:12 MPV 9.8 fL (7.4-10.4) 09/10/23 03:12 Neut % (Auto) 68.4 % 09/10/23 03:12 Lymph % (Auto) 17.1 % 09/10/23 03:12 [place]ruff % (Auto) 9.0 % 09/10/23 03:12 Eos % (Auto) 4.3 % 09/10/23 03:12 Baso % (Auto) 0.3 % 09/10/23 03:12 Neut # (Auto) 7.86 10^3/uL (1.8-7.7) H 09/10/23 03:12 Lymph # (Auto) 2.0 10^3/uL (0.8-4.8) 09/10/23 03:12 Woodruff # (Auto) 1.0 10^3/uL (0.2-0.9) H 09/10/23 03:12 Eos # (Auto) 0.5 10^3/uL (0.0-0.8) 09/10/23 03:12 Baso # (Auto) 0.0 10^3/uL (0.0-0.1) 09/10/23 03:12 Nucleated RBC % (auto) 0 % 09/10/23 03:12 Nucleated RBCs # 0.0 /100WBC 09/10/23 03:12 ESR 44 mm/hr (0-10) H 09/06/23 16:49 PT 18.00 SECONDS (12.1-14.9) H 09/06/23 13:17 INR 1.44 (0.8-1.2) H 09/06/23 13:17 Sodium 140 mmol/L (136-145) 09/10/23 03:12 Potassium 3.6 mmol/L (3.5-5.1) 09/10/23 03:12 Chloride 107 mmol/L (98-107) 09/10/23 03:12 Carbon Dioxide 24 mmol/L (22-29) 09/10/23 03:12 Anion Gap 12.6 (5-19) 09/10/23 03:12 BUN 20 mg/dL (8-23) 09/10/23 03:12 Creatinine 1.7 mg/dL (0.7-1.2) H 09/10/23 03:12 GFR Calculation Not Reportable 09/10/23 03:12 Glucose 105 mg/dL (65-115) 09/10/23 03:12 Estimat Average Glucose 103 09/06/23 20:34 Hemoglobin A1c 5.2 % (4.0-6.0) 09/06/23 20:34 Calculated Osmolality 293 mOsm/kg (285-295) 09/10/23 03:12 Lactic Acid 1.4 mmol/L (0.5-2.2) 09/06/23 16:49 Calcium 8.6 mg/dL (8.5-10.5) 09/10/23 03:12 Phosphorus 4.0 mg/dL (2.5-4.5) 09/06/23 16:49 Magnesium 2.0 mg/dL (1.7-2.3) 09/06/23 16:49 Iron 26 ug/dL (59-158) L 09/06/23 16:49 Ferritin 406 ng/mL (30-400) H 09/06/23 16:49 Total Bilirubin 0.4 mg/dL (0.15-1.2) 09/06/23 13:17 AST 17 U/L (0-40) 09/06/23 13:17 ALT 25 U/L (0-41) 09/06/23 13:17 Alkaline Phosphatase 86 U/L (40-130) 09/06/23 13:17 Creatine Kinase 38 U/L (39-308) L 09/06/23 16:49 Troponin T Baseline 56 ng/L (0-15) H 09/06/23 13:17 Troponin T 120 Minute 59.83 ng/L (0-15) H 09/06/23 15:21 Delta Troponin T 3.83 ABS# (0-10) 09/06/23 15:21 Troponin T Hi Sens 6Hr 48.99 ng/L (0-15) H 09/06/23 20:34 Troponin T Hi Sens 6Hr Delta -7.01 ng/L (0-12) L 09/06/23 20:34 C-Reactive Protein 68.8 mg/L (0.0-4.9) H 09/06/23 16:49 NT-Pro-B Natriuret Pep 3669 pg/mL (0-450) H 09/06/23 16:49 Total Protein 6.0 g/dL (6.6-8.7) L 09/06/23 13:17 Albumin 3.5 g/dL (3.5-5.2) 09/06/23 13:17 Globulin 2.5 g/dL (1.3-4.6) 09/06/23 13:17 Triglycerides 88 mg/dL (0-150) 09/06/23 20:34 Cholesterol 184 mg/dL (0-200) 09/06/23 20:34 LDL Cholesterol, Calc 121 mg/dL (50-129) 09/06/23 20:34 HDL Cholesterol 45 mg/dL (60-100) L 09/06/23 20:34 LDL/HDL Ratio 2.69 RATIO (0.00-3.22) 09/06/23 20:34 Cholesterol/HDL Ratio 4.09 mg/dL (1.0-5.00) 09/06/23 20:34 Vitamin B12 1205 pg/mL (232-1245) 09/06/23 16:49 Folate > 20.0 ng/mL (4.5-32.2) 09/06/23 16:49 Procalcitonin 0.10 ng/mL (0-0.5) 09/06/23 16:49 TSH 4.05 uIU/mL (0.27-4.20) 09/06/23 16:49 Urine Color Yellow (Yellow) 09/06/23 18:50 Urine Appearance Clear (CLEAR) 09/06/23 18:50 Urine pH 6 (5-7) 09/06/23 18:50 Ur Specific [place] 1.005 (1.005-1.030) 09/06/23 18:50 Urine Protein Trace (Negative) 09/06/23 18:50 Urine Glucose (UA) Norm (Normal) 09/06/23 18:50 Urine Ketones Negative (Negative) 09/06/23 18:50 Urine Blood Neg (Negative) 09/06/23 18:50 Urine Nitrate Negative (Negative) 09/06/23 18:50 Urine Bilirubin Neg (Negative) 09/06/23 18:50 Urine Urobilinogen Neg mg/dL (Negative) 09/06/23 18:50 Ur Leukocyte Esterase Negative (Negative) 09/06/23 18:50 Urine RBC 0-4 /hpf (0-2) H 09/06/23 18:50 Urine WBC 0-4 /hpf (0-5) H 09/06/23 18:50 Ur Squamous Epith Cells 0-4 /hpf (0-5) H 09/06/23 18:50 Amorphous Sediment Not Reportable 09/06/23 18:50 Urine Bacteria Trace /hpf (NONE) 09/06/23 18:50 Hyaline Casts 5-10 /lpf H 09/06/23 18:50 Urine Mucus 1+ /hpf 09/06/23 18:50 Urine Opiates Screen Negative ng/mL (Negative) 09/06/23 18:50 Ur Barbiturates Screen Negative ng/mL (Negative) 09/06/23 18:50 Ur Phencyclidine Scrn Negative ng/mL (Negative) 09/06/23 18:50 Ur Amphetamines Screen Negative ng/mL (Negative) 09/06/23 18:50 U Benzodiazepines Scrn Negative ng/mL (Negative) 09/06/23 18:50 Urine Cocaine Screen Negative ng/mL (Negative) 09/06/23 18:50 U Marijuana (THC) Screen Negative ng/mL (Negative) 09/06/23 18:50 Ethyl Alcohol < 10 mg/dL (0-10) 09/06/23 16:49 Vitals Last Vital Signs Temp 97.9 F 09/10/23 07:50 Pulse 112 H 09/10/23 08:20 Resp 18 09/10/23 08:20 BP 122/93 09/10/23 07:50 Pulse Ox 92 09/10/23 08:20 O2 Del Method Room Air 09/10/23 08:20 O2 Flow Rate 1 09/08/23 04:00 Discharge Plan Discharge Patient Disposition: Home Condition: Stable Prescriptions: New metoprolol tartrate 25 mg Tablet 25 mg PO BID@0900,2100 Qty: 120 2RF amiodarone [Pacerone] 200 mg Tablet 200 mg PO DAILY Qty: 60 4RF diltiazem HCl [Cardizem LA] 240 mg tablet extended release 24 hr 240 mg PO DAILY Qty: 90 1RF aspirin 81 mg Tablet,Delayed Release (Dr/Ec) 81 mg PO DAILY Qty: 30 0RF atorvastatin 40 mg Tablet 40 mg PO BEDTIME Qty: 60 0RF Continued pantoprazole 40 mg tablet,delayed release (DR/EC) 40 mg PO DAILY Vision Formula (N-Z-G-Zn-jass) 4,296 mcg-226 mg-90 mg Capsule 1 cap PO QAM Lumigan 0.01 % drops 1 drp ophthalmic (eye) BEDTIME tramadol 50 mg tablet 100 mg PO QID PRN (Reason: Pain) tamsulosin 0.4 mg capsule 0.8 mg PO QAM gabapentin 300 mg capsule 300 mg PO TID finasteride 5 mg tablet 5 mg PO DAILY budesonide-formoterol [Symbicort] 160-4.5 mcg/actuation HFA aerosol inhaler 2 puff INHALATION BID albuterol sulfate 2.5 mg /3 mL (0.083 %) solution for nebulization 2.5 mg inhalation Q6H PRN (Reason: Shortness Of Breath Or Wheezing) Eliquis 5 mg tablet 5 mg PO BID Qty: 60 6RF furosemide [Lasix] 20 mg tablet 20 mg PO DAILY PRN (Reason: Weight gain more than 3 pounds in 24 hours) Qty: 90 2RF potassium chloride 10 mEq tablet extended release 10 meq PO DAILY PRN (Reason: Only take when you take Lasix) Qty: 60 0RF Rx Instructions: Only take with Lasix Fish Oil 1,000 mg (120 mg-180 mg) Capsule 1 cap PO DAILY Discontinued clonidine HCl 0.1 mg tablet 0.1 mg PO TID PRN (Reason: Blood Pressure) amiodarone [Pacerone] 200 mg Tablet 400 mg PO DAILY Qty: 120 3RF Rx Instructions: 400 mg daily for 7 days then 200 mg daily to be continued` diltiazem HCl [Cardizem LA] 360 mg tablet extended release 24 hr 360 mg PO DAILY Qty: 90 4RF isosorbide mononitrate 30 mg tablet extended release 24 hr 30 mg PO DAILY metoprolol succinate 100 mg tablet extended release 24 hr 100 mg PO DAILY Rx Instructions: ALONG WITH ER 25MG TO= 125MG DAILY metoprolol succinate 25 mg tablet extended release 24 hr 25 mg PO DAILY Rx Instructions: ALONG WITH ER 100MG TO= 125MG DAILY Discharge Orders: Discharge Order (Routine); Ordered 09/11/23 Ordered By: David Arellano Referrals: Caterina Barrett DO [Primary Care Provider] - 09/13/23 1:20 pm (This appointment is with Lisa mccullough, please arrive 15 minutes early. Also please bring your discharge paperwork to appointment. Dalton thomas. ) Alexey Crocker MD [Referring] - 2 weeks Discharge Diet: Cardiac Discharge Activity: Increase activity as tolerated Patient Instructions: Opioid Safety Activity Restrictions/Additional Instructions: You will take Cardizem 240 mg daily Metoprolol 25 mg twice a day Amiodarone 200 mg daily This is all to control your heart rate below 110 for A-fib If your blood pressure is below 100/90 As a blood thinner you will take aspirin and Eliquis Please follow-up with [place] vascular surgeon for your carotid disease Call them to make an appointment please Discharge Attestations Time Spent in Discharge Care*: greater than 30 min Quality Metrics Clinical Quality Measures [ No reported AMI, CVA or VTE this stay] Coding Level of Care Code Acute Code for [facility] Fwd Diagnoses Atrial fibrillation with tachycardic ventricular rate I48.91 Orthostatic hypotension I95.1 Nonrheumatic aortic valve stenosis I35.0 Cardiac valve disease etiology: nonrheumatic Acute on chronic diastolic (congestive) heart failure I50.33 Peripheral arterial disease I73.9 Bilateral carotid artery stenosis I65.23 Carotid artery disease type: stenosis Laterality: bilateral Dyslipidemia E78.5 Benign hypertension I10
--- NOTE | 2023-09-11 09:57 | PC.SOCIAL ---
IMM Updated pg 2 of IMM updated and reviewed w/ patient. Copy provided and copy dated, initialed and placed in chart.
[2023-09-11] MEDS: amiodarone 200 mg Tablet PO (10:21)
[2023-09-11] MEDS: metoprolol tartrate 25 mg Tablet PO (10:21)
[2023-09-11] MEDS: gabapentin 300 mg Capsule PO (10:21)
[2023-09-11] MEDS: sennosides-docusate Tablet 2 TAB PO (10:21)
[2023-09-11] MEDS: aspirin 81 mg EC Tablet PO (10:21)
[2023-09-11] MEDS: apixaban 5 mg Tablet PO (10:22)
--- NOTE | 2023-09-11 11:40 | PC.NURSE ---
Discharge Note Patient discharged to [home] via [w/c to POV] accompanied by [his ]. Discharge instructions reviewed with patient and/or human resources representative. Mobile pharmacy medications and/or prescriptions provided. Belongings/home medications returned.
== END 2023-09-11 14:16 | disposition home or self-care (01) | DRG 308 ==
LOC: ER 15:53 → CSU 17:04
PROVIDERS: Admitting Provider Family Medicine; Emergency Provider Internal Medicine; PCP Family Medicine; Visit Provider Internal Medicine
DX: I48.20 Chronic atrial fibrillation, unspecified (principal); I50.33 Acute on chronic diastolic (congestive) heart failure; N17.9 Acute kidney failure, unspecified; I95.1 Orthostatic hypotension; I35.0 Nonrheumatic aortic (valve) stenosis; I73.9 Peripheral vascular disease, unspecified; I65.23 Occlusion and stenosis of bilateral carotid arteries; E78.5 Hyperlipidemia, unspecified; I11.0 Hypertensive heart disease with heart failure; Z79.01 Long term (current) use of anticoagulants; D72.829 Elevated white blood cell count, unspecified; R25.1 Tremor, unspecified; Z86.73 Personal history of transient ischemic attack (TIA), and cerebral infarction without residual deficits; Z82.49 Family history of ischemic heart disease and other diseases of the circulatory system; Z87.891 Personal history of nicotine dependence; F10.21 Alcohol dependence, in remission
CPT/HCPCS: 36415; 70450; 71045; 80048; 80053; 80061; 80306; 80307; 81001; 81015; 82550; 82607; 82728; 82746; 83036; 83540; 83605; 83735; 83880; 84100; 84145; 84443; 84484; 85025; 85610; 85651; 86140; 87040; 93005; 93306; 93312; 93320; 93325; 93880; 94640; 94664; 96374; 96376; 99285; C9113; J3490; J7030; J7626

== ENCOUNTER → 2023-10-10 14:57 | Outpatient (BNVA) | payer MEDICARE, MEDICAID, SELFPAY | PROVIDERS: PCP Family Medicine; Visit Provider Internal Medicine | DX: I48.91 Unspecified atrial fibrillation (principal); I35.0 Nonrheumatic aortic (valve) stenosis; Z79.01 Long term (current) use of anticoagulants; Z87.891 Personal history of nicotine dependence | CPT/HCPCS: 99214 ==

== ENCOUNTER 2023-10-21 08:40 | Inpatient (IN) | payer MEDICARE, MEDICAID, SELFPAY ==
[2023-10-21] VITALS (10 sets, daily range): BP systolic 110–151; BP diastolic 46–79; PULSE 56–87; RESP 16–20; TEMP 36.9–37.1; O2SAT 93–100; BMI 25.0
--- NOTE | 2023-10-21 09:01 | ECG_ITS ---
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 Measurements Intervals Bighorn Rate: 91 P: -87 NE: 226 QRS: 119 QRSD: 170 T: 44 QT: 398 QTc: 492 Interpretive Statements ECTOPIC ATRIAL RHYTHM WITH FIRST DEGREE AV BLOCK RIGHT AXIS DEVIATION [QRS AXIS > 100] RIGHT BUNDLE BRANCH BLOCK [120+ ms QRS DURATION, UPRIGHT V1, 40+ ms S IN I/aVL/V4/V5/V6] Compared to ECG 09/06/2023 15:32:05 Ectopic atrial rhythm now present First degree AV block now present Atrial fibrillation no longer present Electronically Signed On 10-21-2023 19:00:41 CDT by Almaz Decker M.D. [id number] f
--- NOTE | 2023-10-21 09:15 | XRR_ITS ---
PROCEDURE INFORMATION: Exam: XR Chest Exam date and time: 10/21/2023 9:22 AM Age: 78 years old Clinical indication: Cough and dyspnea; Additional info: Dyspnea/cough TECHNIQUE: Imaging protocol: Radiologic exam of the chest. Views: 1 view. COMPARISON: CR XR chest 1V portable [id number] 09/06/2023 1:04 PM FINDINGS: Lungs: Increased interstitial markings are noted with a basilar preponderance and patchy airspace disease at the right base. Pleural spaces: Unremarkable. No pleural effusion. No pneumothorax. Heart/Mediastinum: Unremarkable. No cardiomegaly. Bones/joints: Unremarkable. XR/XR chest 1V portable [id number] IMPRESSION: Basilar preponderance interstitial and patchy airspace disease.
[2023-10-21] MEDS: ipratropium-albuterol 3 mL Neb INHALATION ×4 (09:29→20:27)
[2023-10-21 09:36] LABS: ABG PCO2 40.2 mmHg (35-45); ABG PH Result 7.42 (7.35-7.45); Alveolar-Arterial Oxygen Gradi 2.8 mmHg (5-10); Arterial Blood Gas Hematocrit 31.4 % (42-52); Base Excess ABG 1.1 mmol/L (-2.0-2.0); Blood Gas Allen Test Pos; Blood Gas Operator Identificat WALCI; Blood Gas Sample Site Radial, left; Blood Gas Sample Type Arterial; HCO3 ABG 25.8 mmol/L (22-26); HGB O2 Sat 94.5 % (95-100); Ionized Calcium Level - ABG 1.2 mmol/L (1.1-1.4); Methemoglobin 0.3 % (0.4-1.5); Oxygen Device NC; Oxygen Saturation ABG 96.8; PO2 ABG 77.7 mmHg (80.0-100.0); Potassium Level - ABG 4.3 mmol/L (3.5-5.0); Total Hemoglobin 10.2 g/dL (14-18)
--- NOTE | 2023-10-21 09:44 | ED_ITS ---
HPI - SOB/Dyspnea 2 General: Chief Complaint: Shortness of Breath/Dyspnea Stated Complaint: sob, cough Time Seen by Provider: 10/21/23 08:57 Source: patient Mode of arrival: ambulatory History of Present Illness: HPI Narrative: 78-year-old male presents emergency room complaining of cough productive cough and shortness of breath. Patient has a known history of COPD has had hospitalizations in the past for pneumonia. He has oxygen prescribed to him at home at 3 L but he states he only uses it when he needs a day and a half ago he started having increasing cough and started wearing his oxygen this morning and feels much worse feels wheezy and short of breath continues to have the productive cough he is now wearing his oxygen at 3 L/min. Subjectively reports a fever. Denies any hemoptysis. MD elicited complaint: shortness of breath and cough Pertinent past history: COPD Associated symptoms: Reports chest congestion; Deny abdominal pain, chest pain or fever(s) Review of Systems 2 Const: Denies: fever(s) or chills Card: Denies: chest pain Resp: Reports: dyspnea, productive cough, wheezing and chest congestion GI: Denies: abdominal pain : Denies: dysuria, urinary frequency or urinary urgency Musc: Denies: neck pain or back pain Skin/Breast: Denies: rash PFSH ED 2 PFSH: Medical History (Updated 10/21/23 @ 14:07 by Cristian Adame DO) Pneumonia Benign hypertension Dyslipidemia Carotid artery disease Peripheral arterial disease Acute on chronic diastolic (congestive) heart failure Aortic stenosis Polypharmacy Orthostatic hypotension Acute kidney injury Pre-syncope Dizziness Syncope Atrial fibrillation with tachycardic ventricular rate Atrial fibrillation Diverticulitis Sepsis Peripheral vascular disease of lower extremity Gastritis Esophagitis History of stroke Hyperlipidemia Hypertension Surgical History H/O right knee surgery History of ankle surgery History of esophagogastroduodenoscopy (EGD) No significant past surgical history Family History Father CAD (coronary artery disease) Diabetes Mother CAD (coronary artery disease) Sister Cancer Denies family history of Hypertension Social History Smoking and tobacco/nicotine status: former use of tobacco/nicotine Quit status (tobacco/nicotine): has quit using Year quit tobacco: 2022 Former quit date comment: smoked up to 2 pack per day x 61 years Alcohol intake: former Year of sobriety/quit date alcohol: 2014 Substance/Drug Use: never Household members: spouse Housing: House Marital status: Number of children: 4 Pets and animals: No Physical Exam 2 Const: GENERAL APPEARANCE: cooperative and comfortable O RIENTATION/CONSCIOUSNESS: Yes awake, Yes oriented to person, Yes oriented to place and Yes oriented to time HENMT: COMMON NORMALS: normocephalic, atraumatic and hearing grossly normal bilaterally HEAD & SCALP: normocephalic and atraumatic Resp: COMMON NORMALS: normal respiratory effort, No retractions and No use of accessory muscles AUSCULTATION: rhonchi and wheezes Cardio: COMMON NORMALS: regular rate, regular rhythm and No murmurs present (Cardio) RATE: regular rate RHYTHM: regular rhythm GI: COMMON NORMALS: Soft to palpation and No hepatosplenomegaly present A USCULTATION: Yes normoactive bowel sounds PALPATION: Yes Soft to palpation, No Tenderness to palpation present (GI), No Guarding due to palpation present (GI) and Yes No hepatosplenomegaly present Extremity: COMMON NORMALS: normal to inspection, capillary refill normal, no clubbing, cyanosis or edema, no calf tenderness and no pedal edema Neuro: SENSORIUM/ORIENTATION: Yes oriented to person, Yes oriented to place and Yes oriented to time Skin: COMMON NORMALS: no rashes or lesions noted GENERAL SKIN EXAM: no rashes or lesions noted Course 2 Vital Signs: Vital signs: Vital Signs Temperature 98.6 F 10/21/23 12:00 Pulse Rate 85 10/21/23 12:51 Respiratory Rate 16 10/21/23 12:46 Blood Pressure 128/68 10/21/23 12:00 Pulse Oximetry 93 10/21/23 12:46 Oxygen Delivery Me thod Nasal Cannula 10/21/23 12:46 Oxygen Flow Rate 3 10/21/23 12:46 MDM - SOB/Dyspnea Medical Decision Making Patient is hypoxic on room air normally is on 3 L he was started on that is hypoxia improved chest x-ray shows right lower lobe pneumonia started on IV antibiotics aggressive pulmonary toilet steroids. Patient does have significant elevation of his white count which looking back he has had multiple times in the past he is not currently on any steroids. Discussed with hospitalist will admit orders written Medical Records I reviewed the patient's medical records. Lab Data I reviewed the patient's lab results. 10/21/23 09:13 10/21/23 09:13 Labs/Radiology: Radiology Impressions Chest X-Ray 10/21/23 09:15 IMPRESSION: Basilar preponderance interstitial and patchy airspace disease. Laboratory Results WBC 21.69 10^3/uL (3.29-11.43) H 10/21/23 09:13 RBC 3.86 10^6/uL (3.85-5.65) 10/21/23 09:13 Hgb 11.30 g/dL (11.27-16.99) 10/21/23 09:13 Hct 35.3 % (37-53) L 10/21/23 09:13 MCV 91.5 fl (82-101) 10/21/23 09:13 MCH 29.3 pg (27-33) 10/21/23 09:13 MCHC 32.0 g/dL (30-55) 10/21/23 09:13 RDW 15.4 % (12.1-15.1) H 10/21/23 09:13 Plt Count 426 10^3/cmm (157-399) H 10/21/23 09:13 MPV 10.8 fL (7.4-10.4) H 10/21/23 09:13 Neut % (Auto) 76.3 % 10/21/23 09:13 Lymph % (Auto) 8.7 % 10/21/23 09:13 [place] % (Auto) 11.0 % 10/21/23 09:13 Eos % (Auto) 2.9 % 10/21/23 09:13 Baso % (Auto) 0.4 % 10/21/23 09:13 Neut # (Auto) 16.56 10^3/uL (1.8-7.7) H 10/21/23 09:13 Lymph # (Auto) 1.9 10^3/uL (0.8-4.8) 10/21/23 09:13 [place] # (Auto) 2.4 10^3/uL (0.2-0.9) H 10/21/23 09:13 Eos # (Auto) 0.6 10^3/uL (0.0-0.8) 10/21/23 09:13 Baso # (Auto) 0.1 10^3/uL (0.0-0.1) 10/21/23 09:13 Nucleated RBC % (auto) 0 % 10/21/23 09:13 Nucleated RBCs # 0.0 /100WBC 10/21/23 09:13 Specimen Type Arterial 10/21/23 09:25 Sample Site Radial, left 10/21/23 09:25 ABG pH 7.42 (7.35-7.45) 10/21/23 09: ABG pCO2 40.2 mmHg (35-45) 10/21/23 09: ABG pO2 77.7 mmHg (80.0-100.0) L 10/21/23 09: ABG HCO3 25.8 mmol/L (22-26) 10/21/23 09: ABG O2 Saturation 96.8 10/21/23 09:25 ABG Base Excess 1.1 mmol/L (-2.0-2.0) 10/21/23 09:25 Sam Test Pos 10/21/23 09:25 A-a O2 Gradient 2.8 mmHg (5-10) L 10/21/23 09:25 Hematocrit 31.4 % (42-52) L 10/21/23 09:25 Hgb O2 Saturation 94.5 % (95-100) L 10/21/23 09:25 Carboxyhemoglobin 2.0 %THgb (0.4-20.1) 10/21/23 09:25 Methemoglobin 0.3 % (0.4-1.5) L 10/21/23 09:25 Total Hemoglobin 10.2 g/dL (14-18) L 10/21/23 09:25 Sodium 137.0 mmol/L (131-143) 10/21/23 09:25 Potassium 4.3 mmol/L (3.5-5.0) 10/21/23 09:25 Glucose 115.0 mg/dL (70-115) 10/21/23 09:25 Ionized Calcium 1.2 mmol/L (1.1-1.4) 10/21/23 09:25 O2 Delivery Device Nc 10/21/23 09:25 O2 Liters/Min 2.0 % 10/21/23 09:25 President And Ceo ID Jeff 10/21/23 09:25 Sodium 140 mmol/L (136-145) 10/21/23 09:13 Potassium 4.5 mmol/L (3.5-5.1) 10/21/23 09:13 Chloride 101 mmol/L (98-107) 10/21/23 09:13 Carbon Dioxide 25 mmol/L (22-29) 10/21/23 09:13 Anion Gap 18.5 (5-19) 10/21/23 09:13 BUN 28 mg/dL (8-23) H 10/21/23 09:13 Creatinine 1.6 mg/dL (0.7-1.2) H 10/21/23 09:13 GFR Calculation Not Reportable 10/21/23 09:13 Glucose 101 mg/dL (65-115) 10/21/23 09:13 Calculated Osmolality 296 mOsm/kg (285-295) H 10/21/23 09:13 Calcium 9.0 mg/dL (8.5-10.5) 10/21/23 09:13 Magnesium 2.1 mg/dL (1.7-2.3) 10/21/23 09:13 Total Bilirubin 0.5 mg/dL (0.15-1.2) 10/21/23 09:13 AST 36 U/L (0-40) 10/21/23 09:13 ALT 54 U/L (0-41) H 10/21/23 09:13 Alkaline Phosphatase 105 U/L (40-130) 10/21/23 09:13 Lactate Dehydrogenase 225 U/L (135-225) 10/21/23 09:13 Troponin T Baseline 68 ng/L (0-15) H 10/21/23 09:13 Total Protein 7.4 g/dL (6.6-8.7) 10/21/23 09:13 Albumin 3.8 g/dL (3.5-5.2) 10/21/23 09:13 Globulin 3.6 g/dL (1.3-4.6) 10/21/23 09:13 All radiology interpretation(s) finalized by discharge Discharge Plan Discharge Patient Disposition: Admitted As Inpatient Admit Provider: Will Fleming Clinical Impression: Pneumonia, Acute respiratory failure with hypoxemia, Leukocytosis, COPD with acute exacerbation Condition: Stable Coding Level of Care Code ED Driller And Reamer for Shemar Candelaria
[2023-10-21 09:56] LABS: Basophils # 0.1 10^3/uL (0.0-0.1); Basophils % 0.4 %; Eosinophils # 0.6 10^3/uL (0.0-0.8); Eosinophils % 2.9 %; Hematocrit 35.3 % (37-53); Lymphocytes # 1.9 10^3/uL (0.8-4.8); Lymphocytes % 8.7 %; Mean Corpuscular Hemoglobin 29.3 pg (27-33); Mean Corpuscular Volume 91.5 fl (82-101); Mean Platelet Volume 10.8 fL (7.4-10.4); Monocytes # 2.4 10^3/uL (0.2-0.9); Neutrophils # 16.56 10^3/uL (1.8-7.7); Neutrophils % 76.3 %; Nucleated Red Blood Cells % 0 %; Platelet Count 426 10^3/cmm (157-399); Red Blood Count 3.86 10^6/uL (3.85-5.65); Red Cell Distribution Width 15.4 % (12.1-15.1); White Blood Count 21.69 10^3/uL (3.29-11.43)
[2023-10-21] MEDS: sodium chloride 0.9% 1,000 ML 999 ML IV (09:56)
[2023-10-21] MEDS: dexamethasone 10 mg/mL INJ IM (09:56)
[2023-10-21 10:31] LABS: Alanine Aminotransferase 54 U/L (0-41); Albumin Level 3.8 g/dL (3.5-5.2); Alkaline Phosphatase 105 U/L (40-130); Anion Gap 18.5 (5-19); Aspartate Amino Transferase 36 U/L (0-40); Blood Urea Nitrogen 28 mg/dL (8-23); Carbon Dioxide 25 mmol/L (22-29); Chloride 101 mmol/L (98-107); Creatinine Clr Calc Pharmacy 41.7323; Globulin 3.6 g/dL (1.3-4.6); Glucose 101 mg/dL (65-115); Magnesium 2.1 mg/dL (1.7-2.3); Osmolality Calculated 296 mOsm/kg (285-295); Potassium 4.5 mmol/L (3.5-5.1); Sodium 140 mmol/L (136-145); Total Bilirubin 0.5 mg/dL (0.15-1.2); Total Protein 7.4 g/dL (6.6-8.7)
[2023-10-21 10:34] LABS: Troponin(5th) Baseline 68 ng/L (0-15)
--- NOTE | 2023-10-21 11:01 | P.HP_ITS ---
Providers/Chief Complaint 2 Admitting Physician: Will Fleming MD Primary Care Provider: Caterina Barrett DO Chief Complaint: sob, cough History of Present Illness Pati Telles is a 78 year old male presenting from home with shortness of breath. He has underlying COPD, atrial fibrillation, and other medical issues. He has been short of breath for the last 2 days. Some cough. No hemoptysis. He reports no chest or abdominal pain. No choking when swallowing. He is typically not on any oxygen at home. No documented fever at home. No nausea. He reports no lower extremity swelling. No ill contacts. Review of Systems 2 General: Reports: 10 or more systems reviewed and unremarkable except in HPI and below Const: Denies: fever(s) Card: Denies: chest pain Resp: Reports: dyspnea and productive cough GI: Denies: abdominal pain, nausea, vomiting, hematochezia or melena Medications/Allergies Home Medications Medication Instructions Recorded Confirmed Last Taken Type finasteride 5 mg tablet 5 mg PO DAILY 11/02/21 10/21/23 10/21/23 History gabapentin 300 mg capsule 300 mg PO TID 11/02/21 10/21/23 10/21/23 History tamsulosin 0.4 mg capsule 0.8 mg PO QAM 11/02/21 10/21/23 10/21/23 History tramadol 50 mg tablet 100 mg PO QID PRN Pain 11/02/21 10/21/23 06/16/23 History apixaban 5 mg tablet (Eliquis) 5 mg PO BID #60 tabs 06/21/23 10/21/23 10/21/23 Rx furosemide 20 mg tablet (Lasix) 20 mg PO DAILY PRN Weight gain 06/21/23 10/21/23 09/05/23 Rx more than 3 pounds in 24 hours #90 tabs bimatoprost 0.01 % eye drops 1 drp ophthalmic (eye) BEDTIME 06/29/23 10/21/23 10/20/23 History (Rika) vitamins A,C,U-hyxo-ptqpih 4,296 1 cap PO QAM 06/29/23 10/21/23 10/21/23 History mcg-226 mg-90 mg capsule omega 7-smi-auk-fish oil 1,000 mg 1 cap PO DAILY 09/06/23 10/21/2310/20/24 History (120 mg-180 mg) capsule (Fish Oil) amiodarone 200 mg tablet (Pacerone) 200 mg PO DAILY #60 tabs 09/10/23 10/21/23 10/21/23 Rx atorvastatin 40 mg tablet 40 mg PO BEDTIME #60 tabs 09/10/23 10/21/23 10/20/23 Rx aspirin 81 mg tablet,delayed 81 mg PO DAILY #30 tabs 09/11/23 10/21/23 10/21/23 Rx release metoprolol tartrate 25 mg tablet 25 mg PO BID@0900,2100 #120 tabs 09/11/23 10/21/23 10/21/23 Rx diltiazem HCl 120 mg 120 mg PO DAILY #90 tabs 10/10/23 10/21/23 10/21/23 Rx tablet,extended release 24 hr diphenhydramine HCl 25 mg capsule 25 mg PO TID PRN Allergic Symptoms 10/21/23 10/21/23 Unknown History (Benadryl) multivitamin 1 tab PO DAILY 10/21/23 10/21/23 10/21/23 History Allergies Allergy/AdvReac Type Severity Reaction Status Date / Time Alpha-Gal Allergy Severe ALGY-Rash Verified 10/10/23 15:30 (Lunskqfqs-Yfwyx-3,3-Gala lisinopril Allergy ADR-Faintin Verified 10/10/23 15:30 g PFSH Acute 2 PFSH: Medical History (Updated 10/21/23 @ 11:09 by Will Fleming MD) Pneumonia Benign hypertension Dyslipidemia Carotid artery disease Peripheral arterial disease Acute on chronic diastolic (congestive) heart failure Aortic stenosis Polypharmacy Orthostatic hypotension Acute kidney injury Pre-syncope Dizziness Syncope Atrial fibrillation with tachycardic ventricular rate Atrial fibrillation Diverticulitis Sepsis Peripheral vascular disease of lower extremity Gastritis Esophagitis History of stroke Hyperlipidemia Hypertension Surgical History H/O right knee surgery History of ankle surgery History of esophagogastroduodenoscopy (EGD) No significant past surgical history Family History Father CAD (coronary artery disease) Diabetes Mother CAD (coronary artery disease) Sister Cancer Denies family history of Hypertension Social History Smoking and tobacco/nicotine status: former use of tobacco/nicotine Quit status (tobacco/nicotine): has quit using Year quit tobacco: 2022 Former quit date comment: smoked up to 2 pack per day x 61 years Alcohol intake: former Year of sobriety/quit date alcohol: 2013 Substance/Drug Use: never Household members: spouse Housing: House Marital status: Number of children: 4 Pets and animals: No Vitals/I&O/Wt Last Vital Signs Temp 98.8 F 10/21/23 09:04 Pulse 81 10/21/23 10:10 Resp 18 10/21/23 10:10 BP 143/73 10/21/23 10:10 Pulse Ox 100 10/21/23 10:10 O2 Del Method Nasal Cannula 10/21/23 10:10 O2 Flow Rate 3 10/21/23 10:10 Weight last 48 hrs Weight 83.915 kg Physical Exam 2 Narrative: General his exam is a white male, currently on 3 L of oxygen with mild to moderate respiratory distress exhibited by tachypnea with a rate around 24 when I examined the patient. Fine tremor is noted. HEENT: Atraumatic normocephalic. Oropharynx is clear Neck is supple no lymphadenopathy thyromegaly Cardiovascular regular rate and rhythm with a 2/6 systolic murmur Lungs diminished breath sounds bilaterally with occasional expiratory wheeze and some coarse breath sounds in the right lower lung field. Abdomen is soft with positive bowel sounds. No obvious organomegaly exams deferred Extremities no cyanosis clubbing or edema, cap refill brisk Skin no rash Neuro no obvious focal deficits. Data 10/21/23 09:13 10/21/23 09:13 Other Labs: ABG demonstrates pH 7.42, pCO2 40, pO2 of 77 on 2 to 3 L LFTs are normal with the exception of ALT of 54 Troponin baseline 68 with repeat pending I have ordered an LDH Calcium and albumin are normal Magnesium level is normal Urinalysis is ordered Chest x-ray demonstrates bibasilar infiltrates right greater than left by my read. Atherosclerotic disease Echocardiogram 09/03 demonstrated diastolic dysfunction 3/. CLIFF follow-up demonstrated no aortic stenosis. EF was normal Blood cultures were obtained EKG by my read demonstrates sinus rhythm, right axis deviation, right bundle branch block, nonspecific ST-T wave changes. Micro: Microbiology 10/21/23 10:15 Blood Culture - Preliminary Blood SPECIMEN COLLECTED 10/21/23 10:15 Blood Culture - Preliminary Blood SPECIMEN COLLECTED A&P Assessment and plan (1) Acute respiratory failure with hypoxemia: Patient presents with acute respiratory failure with hypoxemia Oxygen as needed, wean as tolerated See notations below (2) Pneumonia: Sputum culture Respiratory panel Urine Legionella antigen Rocephin, azithromycin Wean oxygen as tolerated Qualifiers: Laterality: bilateral Lung location: lower lobe of lung Pneumonia type: due to unspecified organism Qualified Code(s): J18.9 - Pneumonia, unspecified organism (3) COPD with acute exacerbation: Patient with acute COPD exacerbation Solu-Medrol 60 mg IV every 12 hours, starting tonight as he received dexamethasone earlier in the day Budesonide twice daily DuoNeb every 4 hours (4) Atrial fibrillation: Patient with atrial fibrillation Telemetry Continue amiodarone, Eliquis, diltiazem Currently appears to be in sinus rhythm Qualifiers: Atrial fibrillation type: unspecified Qualified Code(s): I48.91 - Unspecified atrial fibrillation (5) Elevated troponin: Likely this is a type II elevation Recent echocardiogram reviewed Telemetry Serial troponins Continue aspirin, Eliquis, metoprolol (6) Leukocytosis: Patient with significant leukocytosis Monocytes are elevated Consider outpatient evaluation Check LDH Plan Other medical problems as listed in past medical history Full code currently is decision-maker if patient could not make decisions on his own Eliquis will suffice for DVT prophylaxis Attestations 2 Medical Necessity Statement*: Will require greater than 2 midnight stay for evaluation of COPD exacerbation associated with pneumonia and significant hypoxia in this patient with mild to moderate respiratory distress. Diagnoses Acute respiratory failure with hypoxemia J96.01 Pneumonia J18.9 Laterality: bilateral Lung location: lower lobe of lung Pneumonia type: due to unspecified organism COPD with acute exacerbation J44.1 Atrial fibrillation I48.91 Atrial fibrillation type: unspecified Elevated troponin R79.89 Leukocytosis D72.829 Time Spent (min) 54
--- NOTE | 2023-10-21 11:13 | ECG_ITS ---
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 Measurements Intervals [place] Rate: 81 P: 0 [place]: 0 QRS: 122 QRSD: 167 T: 50 QT: 420 QTc: 488 Interpretive Statements Sinus rhythm with a first-degree AV block and sinus arrhythmia RIGHT AXIS DEVIATION [QRS AXIS > 100] RIGHT BUNDLE BRANCH BLOCK [120+ ms QRS DURATION, UPRIGHT V1, 40+ ms S IN I/aVL/V4/V5/V6] Compared to ECG 10/21/2023 09:01:47 Ectopic atrial rhythm no longer present First degree AV block no longer present Electronically Signed On 10-21-2023 19:07:29 CDT by Almaz Decker M.D. [id number]
[2023-10-21 11:16] LABS: Lactate Dehydrogenase 225 U/L (135-225)
[2023-10-21 11:38] LABS: Lactic Sepsis W/Reflex 1.1 mmol/L (0.5-2.2)
[2023-10-21 11:40] LABS: Troponin 5 2HR 54.69 ng/L (0-15)
[2023-10-21 11:42] LABS: Troponin 5 2HR Delta -13.31 ABS# (0-10)
[2023-10-21] MEDS: cefTRIAXone 1,000 MG in sodium chloride 0.9% (plus) 50 ML 100 MG IV (13:23)
[2023-10-21] MEDS: azithromycin 500 MG in sodium chloride 0.9% 250 ML 250 MG IV (14:23)
--- NOTE | 2023-10-21 15:16 | ECG_ITS ---
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 Measurements Intervals [place] Rate: 72 P: 78 [place]: 314 QRS: 125 QRSD: 181 T: 40 QT: 450 QTc: 493 Interpretive Statements SINUS RHYTHM WITH FIRST DEGREE AV BLOCK RIGHT AXIS DEVIATION [QRS AXIS > 100] RIGHT BUNDLE BRANCH BLOCK [120+ ms QRS DURATION, UPRIGHT V1, 40+ ms S IN I/aVL/V4/V5/V6] Compared to ECG 10/21/2023 11:13:53 First degree AV block now present Atrial fibrillation no longer present Electronically Signed On 10-21-2023 19:08:39 CDT by Almaz Decker M.D. [id number]
[2023-10-21] MEDS: gabapentin 300 mg Capsule PO ×2 (16:10→21:28)
[2023-10-21] MEDS: apixaban 5 mg Tablet PO (18:08)
[2023-10-21] MEDS: guaiFENesin 600 mg Tablet PO (18:08)
[2023-10-21 18:18] LABS: Troponin 5 6HR 41.15 ng/L (0-15); Troponin 5 6HR Delta -26.85 ng/L (0-12)
[2023-10-21] MEDS: budesonide 0.5 mg/2 mL Neb INHALATION (20:27)
[2023-10-21 21:17] LABS: Adenovirus Not Detected (NOT DETECT); Chlamydia Pneumoniae Not Detected (NOT DETECT); Coronavirus 229E,HKU1,NL63,OC4 Not Detected (NOT DETECT); Human Metapneumovirus Not Detected (NOT DETECT); Human Rhinovirus/Enterovirus Not Detected (NOT DETECT); Influenza A Not Detected (NOT DETECT); Influenza A H1 Not Detected (NOT DETECT); Influenza A H1-2009 Not Detected (NOT DETECT); Influenza A H3 Not Detected (NOT DETECT); Influenza B Not Detected (NOT DETECT); Mycoplasma Pneumoniae Not Detected (NOT DETECT); Parainfluenza Virus Type 1 Not Detected (NOT DETECT); Parainfluenza Virus Type 2 Not Detected (NOT DETECT); Parainfluenza Virus Type 3 Not Detected (NOT DETECT); Parainfluenza Virus Type 4 Not Detected (NOT DETECT); Respiratory Syncytial Virus A Not Detected (NOT DETECT); Respiratory Syncytial Virus B Not Detected (NOT DETECT); SARS-COV-2 Not Detected (NOT DETECT)
[2023-10-21] MEDS: methylPREDNISolone sod succ 125 mg/2 mL INJ 60 MG IVP (21:28)
[2023-10-21] MEDS: metoprolol tartrate 25 mg Tablet PO (21:28)
[2023-10-21] MEDS: atorvastatin 40 mg Tablet PO (21:28)
[2023-10-21 21:58] LABS: Add Urine Microscopic? YES; Bilirubin Urine Neg (Negative); Blood Urine 3+ (Negative); Glucose Urine UA Norm (Normal); Ketones Urine 1+ (Negative); Leukocyte Esterase Urine Negative (Negative); Nitrate Urine Negative (Negative); Protein Urine 1+ (Negative); Urine Appearance Slightly Cloudy (CLEAR); Urine Color Yellow (Yellow); Urobilinogen Urine Neg (Negative); pH Urine 5 (5-7)
[2023-10-21 21:59] LABS: Add Urine Culture? Yes; Bacteria Urine 1+ /hpf; Mucus Urine 3+ /hpf; RBC Urine 50-80 /hpf (0-2)
[2023-10-22] VITALS (19 sets, daily range): BP systolic 106–114; BP diastolic 44–66; PULSE 52–119; RESP 15–20; TEMP 36.8–37.1; O2SAT 92–98
[2023-10-22] MEDS: ipratropium-albuterol 3 mL Neb INHALATION ×6 (00:06→20:26)
[2023-10-22 05:35] LABS: Basophils % 0.1 %; Hematocrit 29.6 % (37-53); Lymphocytes # 1.6 10^3/uL (0.8-4.8); Lymphocytes % 6.9 %; Mean Corpuscular HGB Conc 31.1 g/dL (30-55); Mean Corpuscular Hemoglobin 28.9 pg (27-33); Mean Corpuscular Volume 93.1 fl (82-101); Mean Platelet Volume 10.7 fL (7.4-10.4); Monocytes # 0.4 10^3/uL (0.2-0.9); Monocytes % 1.7 %; Neutrophils # 20.91 10^3/uL (1.8-7.7); Neutrophils % 90.3 %; Nucleated Red Blood Cells % 0 %; Platelet Count 421 10^3/cmm (157-399); Red Blood Count 3.18 10^6/uL (3.85-5.65); Red Cell Distribution Width 15.2 % (12.1-15.1); White Blood Count 23.14 10^3/uL (3.29-11.43)
[2023-10-22 06:03] LABS: Alanine Aminotransferase 45 U/L (0-41); Albumin Level 3.1 g/dL (3.5-5.2); Alkaline Phosphatase 109 U/L (40-130); Anion Gap 13.9 (5-19); Aspartate Amino Transferase 28 U/L (0-40); Blood Urea Nitrogen 38 mg/dL (8-23); Calcium 8.8 mg/dL (8.5-10.5); Carbon Dioxide 23 mmol/L (22-29); Chloride 104 mmol/L (98-107); Creatinine Clr Calc Pharmacy 42.7067; Globulin 3.5 g/dL (1.3-4.6); Glucose 171 mg/dL (65-115); Magnesium 2.3 mg/dL (1.7-2.3); Osmolality Calculated 295 mOsm/kg (285-295); Potassium 4.9 mmol/L (3.5-5.1); Sodium 136 mmol/L (136-145); Total Bilirubin 0.2 mg/dL (0.15-1.2); Total Protein 6.6 g/dL (6.6-8.7)
[2023-10-22] MEDS: tamsulosin 0.4 mg Capsule 0.800000000000000044 MG PO (06:19)
[2023-10-22] MEDS: budesonide 0.5 mg/2 mL Neb INHALATION ×2 (08:20→20:26)
--- NOTE | 2023-10-22 08:23 | CT_ITS ---
WS: [id number] CT CHEST, ABDOMEN, AND PELVIS TECHNIQUE: Noncontrast CT of the chest, abdomen, and pelvis with coronal and sagittal reformatted elijah ges. CLINICAL INFORMATION: dypnea, history of pleural effusiona nd history of renal sto COMPARISON: None. DLP: 896.[address] scans at [facility] use at least one of these dose optimization techniques: automated e xposure control; mA and/or kV adjustment per patient size (includes targeted exams where dose is matc hed to clinical indication); or iterative reconstruction. CT CHEST: Small RIGHT and tiny LEFT pleural effusions. A few patchy infiltrates with compressive atelectasis RI GHT lower lobe. Pleural parenchymal scarring in the RIGHT middle lobe. Aortic calcification. Normal c aliber thoracic aorta. Coronary calcification. Small thyroid nodules. No axillary lymphadenopathy. C hronic compression deformity T12. Stable 10 mm RIGHT paratracheal lymph node. Chronic emphysematous c hanges. Perihilar and lower lobe bronchiectasis. Subsegmental atelectasis LEFT lower lobe. Fibrosis i n the lung apices. No axillary lymphadenopathy. CT ABDOMEN AND PELVIS: Enlarged prostate measuring 5.4 x 4.9 cm. Adrenal glands are normal. Previously described LEFT pelvic calculus appears to have migrated into the mid to distal LEFT ureter at the pelvic inlet measuring 6 mm. LEFT perinephric stranding. Minimal LEFT hydronephrosis. No obst ructing RIGHT renal or ureteral calculi. Normal noncontrast liver. Fatty atrophy of the pancreas. Adrenal glands are normal. Tiny esophageal h ernia. Mild thoracic curve. Mild thoracic kyphosis. Small esophageal hiatal hernia. Food products in this distended stomach with air-fluid level. Fatty a trophy of the pancreas. Noncontrast spleen is normal. Normal caliber abdominal aorta. CT/[place] [id number] IMPRESSION: 1. Small RIGHT pleural effusion with patchy filtrates and compressive atelecta sis in the RIGHT lower lobe. 2. 6 mm ureteral calculus at the pelvic inlet in the mid to distal LEFT ureter likely migrated from the renal pelvis on the prior study. Only mild hydronephr osis unchanged from previous 3. No obstructing RIGHT renal or ureteral calculi. 4. Sigmoid diverticulosis. 5. Markedly enlarged prostate unchanged. Recommend correlation PSA. 6. Small esophageal hiatal hernia. 7. Distended stomach with food products and air-fluid levels. Chronic compress ion deformity T12.
[2023-10-22] MEDS: guaiFENesin 600 mg Tablet PO ×2 (09:02→17:55)
[2023-10-22] MEDS: gabapentin 300 mg Capsule PO ×3 (09:02→20:07)
[2023-10-22] MEDS: FUROsemide 10 mg/mL SDV 2mL 20 MG IVP (09:02)
[2023-10-22] MEDS: methylPREDNISolone sod succ 125 mg/2 mL INJ 60 MG IVP (09:03)
[2023-10-22] MEDS: metoprolol tartrate 25 mg Tablet PO ×2 (09:03→20:07)
[2023-10-22] MEDS: finasteride 5 mg Tablet PO (09:03)
[2023-10-22] MEDS: dilTIAZem ER (24HR) 120 mg Capsule PO (09:03)
[2023-10-22] MEDS: aspirin 81 mg EC Tablet PO (09:03)
[2023-10-22] MEDS: amiodarone 200 mg Tablet PO (09:03)
--- NOTE | 2023-10-22 09:48 | PC.CHAP ---
Pastoral Care Encounter/Spiritual Assessment Type of Contact [] Declined bag shaker visit [] Patient/Family/Request visit [] Outpatient visit [] Follow-up visit [] Physician referral [] Code/Alert [] Routine visit [] Staff referral [] Actively dying [] Patient sleeping [] Family support [] [x] Out of room [] Palliative care [] [] Receiving care in room [] Pre-surgical visit [] Trauma [] Long length of stay [] ICU visit [] Other: Relational/Emotional Strength [] Patient feels connected with others/family/visitors/staff [] Distress [] Loneliness/isolation [] Abandonment Spirituality of Patient [] Person of Linda [] Attends Congregation of their Linda [] Believes in Prayer [] Reads Bible or Yarsanism materials [] There are Spiritual issues to be addressed Contour Path Tape Mill Operator Interventions [] Prayer [] Active listening [] Non-anxious presence [] Spiritual/emotional support [] Crisis/trauma care [] Spiritual counseling [] Bereavement support [] Provided bereavement packet [] Provided Bible/devotional materials [] Provided toy/stuffed animal, coloring book to patient or family member [] Provided Communion [] Anointing/Neotsu [] Salvation [] Completed spiritual assessment [] Other: Impact on Illness or Injury [] Angry [] Fearful [] Anxious [] Often cries [] Exhaustion [] Unable to work [] Unable to attend buddhist [] Unable to walk/stand [] Unable to read [] Unable to drive [] Unable to eat/drink [] Unable to sleep [] Unable to be with family [] Patient intubated [] Other: Summary Time spent with patient
--- NOTE | 2023-10-22 11:16 | P.PN_ITS ---
Subjective 2 Subjective: Reports he feels a little bit better. Still coughing but not coughing stuff up. No chest pain. Medications: Reviewed: Yes Vitals/I&O/Wt Last Vital Signs Temp 98.3 F 10/22/23 07:57 Pulse 88 10/22/23 11:10 Resp 18 10/22/23 11:00 BP 106/53 10/22/23 07:57 Pulse Ox 95 10/22/23 11:00 O2 Del Method Nasal Cannula 10/22/23 11:00 O2 Flow Rate 3 10/22/23 11:00 10/21/23 10/22/23 10/22/23 22:59 06:59 14:59 Intake Total 660 / 1780 120 / 1900 118 / 118 Output Total 100 / 100 500 / 600 Balance 560 / 1680 -380 / 1300 118 / 118 Weight last 48 hrs Weight 88.592 kg Weight 83.915 kg Weight 83.915 kg Physical Exam 2 Narrative: General no distress, currently on 3 L.. Neck is supple no lymphadenopathy thyromegaly Cardiovascular regular rate and rhythm with a 2/6 systolic murmur Lungs diminished breath sounds bilaterally with some coarse breath sounds right lower lobe Abdomen is soft with positive bowel sounds. No obvious organomegaly Extremities no cyanosis clubbing or edema, cap refill brisk Data 10/22/23 04:48 10/22/23 04:48 Micro: Microbiology 10/21/23 10:15 Blood Culture - Preliminary Blood NEGATIVE TO DATE 10/21/23 10:15 Blood Culture - Preliminary Blood NEGATIVE TO DATE 10/21/23 21:40 Legionella Urinary Antigen - Final Urine,Voided 10/21/23 09:38 Gram Stain - Final Sputum - Expectorated Sputum A&P Assessment and plan (1) Acute respiratory failure with hypoxemia: Patient presents with acute respiratory failure with hypoxemia Oxygen as needed, wean as tolerated See notations below (2) Pneumonia: Sputum culture pending Respiratory panel negative Urine Legionella antigen negative Continue Rocephin, azithromycin Wean oxygen as tolerated Check MRSA PCR White blood cell count increased. I will I think this is likely steroid effect Qualifiers: Laterality: bilateral Lung location: lower lobe of lung Pneumonia type: due to unspecified organism Qualified Code(s): J18.9 - Pneumonia, unspecified organism (3) COPD with acute exacerbation: Patient with acute COPD exacerbation Reduce Solu-Medrol to 60 mg IV every 24 hours Budesonide twice daily DuoNeb every 4 hours (4) Atrial fibrillation: Patient with atrial fibrillation Telemetry Continue amiodarone, Eliquis, diltiazem Currently appears to be in sinus rhythm Qualifiers: Atrial fibrillation type: unspecified Qualified Code(s): I48.91 - Unspecified atrial fibrillation (5) Elevated troponin: Likely this is a type II elevation Recent echocardiogram reviewed Telemetry Serial troponins Continue aspirin, Eliquis, metoprolol (6) Leukocytosis: Patient with significant leukocytosis Monocytes are elevated Consider outpatient evaluation LDH normal CT checked for significant pleural effusion. Minor pleural effusion on the right, right-sided infiltrate consistent with pneumonia, mild left hydro unchanged from before and small left ureteral renal stone Plan Small left ureteral stone, with very mild hydronephrosis and no evidence infection. Encourage outpatient follow-up. Other medical problems as listed in past medical history Full code currently is decision-maker if patient could not make decisions on his own Eliquis will suffice for DVT prophylaxis Attestations 2 Medical Necessity Statement*: Needs continued hospital stay for IV antibiotics related to pneumonia. Diagnoses Acute respiratory failure with hypoxemia J96.01 Pneumonia J18.9 Laterality: bilateral Lung location: lower lobe of lung Pneumonia type: due to unspecified organism COPD with acute exacerbation J44.1 Atrial fibrillation I48.91 Atrial fibrillation type: unspecified Elevated troponin R79.89 Leukocytosis D72.829 Time Spent (min) 25
[2023-10-22] MEDS: apixaban 5 mg Tablet PO ×2 (12:33→20:07)
[2023-10-22] MEDS: cefTRIAXone 1,000 MG in sodium chloride 0.9% (plus) 50 ML 100 MG IV (13:07)
[2023-10-22] MEDS: azithromycin 500 MG in sodium chloride 0.9% 250 ML 250 MG IV (14:04)
[2023-10-22] MEDS: TRAMadol 50 mg Tablet 100 MG PO (16:05)
[2023-10-22] MEDS: atorvastatin 40 mg Tablet PO (20:06)
[2023-10-23] VITALS (19 sets, daily range): BP systolic 105–138; BP diastolic 51–64; PULSE 64–78; RESP 14–21; TEMP 36.4–36.7; O2SAT 93–99
[2023-10-23] MEDS: ipratropium-albuterol 3 mL Neb INHALATION ×6 (00:36→19:57)
[2023-10-23 06:00] LABS: Basophils % 0.1 %; Hematocrit 27.3 % (37-53); Lymphocytes # 1.8 10^3/uL (0.8-4.8); Lymphocytes % 6.4 %; Mean Corpuscular HGB Conc 31.5 g/dL (30-55); Mean Corpuscular Hemoglobin 29.1 pg (27-33); Mean Corpuscular Volume 92.2 fl (82-101); Mean Platelet Volume 10.7 fL (7.4-10.4); Monocytes # 0.9 10^3/uL (0.2-0.9); Monocytes % 3.1 %; Neutrophils # 24.81 10^3/uL (1.8-7.7); Neutrophils % 89.3 %; Nucleated Red Blood Cells % 0 %; Platelet Count 450 10^3/cmm (157-399); Red Blood Count 2.96 10^6/uL (3.85-5.65); Red Cell Distribution Width 15.4 % (12.1-15.1); White Blood Count 27.78 10^3/uL (3.29-11.43)
[2023-10-23 06:20] LABS: Alanine Aminotransferase 67 U/L (0-41); Albumin Level 2.9 g/dL (3.5-5.2); Alkaline Phosphatase 85 U/L (40-130); Anion Gap 17.3 (5-19); Aspartate Amino Transferase 41 U/L (0-40); Blood Urea Nitrogen 50 mg/dL (8-23); Calcium 8.6 mg/dL (8.5-10.5); Carbon Dioxide 20 mmol/L (22-29); Chloride 107 mmol/L (98-107); Creatinine Clr Calc Pharmacy 43.4804; Globulin 3.3 g/dL (1.3-4.6); Glucose 165 mg/dL (65-115); Magnesium 2.2 mg/dL (1.7-2.3); Osmolality Calculated 307 mOsm/kg (285-295); Potassium 4.3 mmol/L (3.5-5.1); Sodium 140 mmol/L (136-145); Total Bilirubin 0.2 mg/dL (0.15-1.2); Total Protein 6.2 g/dL (6.6-8.7)
[2023-10-23] MEDS: budesonide 0.5 mg/2 mL Neb INHALATION ×2 (08:06→19:57)
[2023-10-23] MEDS: vancomycin 1,500 MG/300 ML PIGGYBACK 200 MG IV (08:26)
[2023-10-23] MEDS: predniSONE 20 mg Tablet 40 MG PO (08:28)
[2023-10-23] MEDS: guaiFENesin 600 mg Tablet PO ×2 (08:28→17:14)
[2023-10-23] MEDS: gabapentin 300 mg Capsule PO ×3 (08:29→20:21)
[2023-10-23] MEDS: tamsulosin 0.4 mg Capsule 0.800000000000000044 MG PO (08:31)
[2023-10-23] MEDS: apixaban 5 mg Tablet PO ×2 (08:31→20:21)
[2023-10-23] MEDS: aspirin 81 mg EC Tablet PO (08:31)
[2023-10-23] MEDS: finasteride 5 mg Tablet PO (08:31)
[2023-10-23] MEDS: metoprolol tartrate 25 mg Tablet PO ×2 (08:39→20:21)
[2023-10-23] MEDS: dilTIAZem ER (24HR) 120 mg Capsule PO (08:40)
[2023-10-23] MEDS: amiodarone 200 mg Tablet PO (08:40)
--- NOTE | 2023-10-23 09:20 | PC.SOCIAL ---
IMM Update pg 2 of IMM updated and reviewed w/ patient. Copy provided and copy dated, initialed and placed in chart.
--- NOTE | 2023-10-23 09:31 | PC.NURSE ---
Refuses SCDS due to they way they feel on patients legs.
--- NOTE | 2023-10-23 10:05 | PC.NURSE ---
Vanco T of 5.8 was placed on Vanc medication in Jul. Patient has not had a vancomycin drawn.
[2023-10-23] MEDS: piperacillin-tazobactam 3.375 GM in sodium chloride 0.9% (plus) 50 ML IV ×2 (10:23→17:12)
[2023-10-23 12:13] LABS: Basophils % 0.1 %; Hematocrit 30.3 % (37-53); Lymphocytes # 1.8 10^3/uL (0.8-4.8); Lymphocytes % 6.1 %; Mean Corpuscular HGB Conc 31.4 g/dL (30-55); Mean Corpuscular Volume 92.4 fl (82-101); Mean Platelet Volume 10.7 fL (7.4-10.4); Monocytes # 2.1 10^3/uL (0.2-0.9); Neutrophils # 25.39 10^3/uL (1.8-7.7); Neutrophils % 85.4 %; Nucleated Red Blood Cells % 0 %; Platelet Count 489 10^3/cmm (157-399); Red Blood Count 3.28 10^6/uL (3.85-5.65); Red Cell Distribution Width 15.4 % (12.1-15.1); White Blood Count 29.74 10^3/uL (3.29-11.43)
[2023-10-23] MEDS: azithromycin 500 MG in sodium chloride 0.9% 250 ML 250 MG IV (12:15)
[2023-10-23 13:07] LABS: Specific Gravity, Urine 1.015 (1.005-1.030); Urine Appearance Slightly Cloudy (CLEAR); Urine Color Yellow (Yellow); pH Urine 5 (5-7)
[2023-10-23 13:08] LABS: Add Urine Culture? No; Bacteria Urine TRACE /hpf; Bilirubin Urine Neg (Negative); Blood Urine 3+ (Negative); Glucose Urine UA Norm (Normal); Ketones Urine 1+ (Negative); Leukocyte Esterase Urine Negative (Negative); Mucus Urine TRACE /hpf; Nitrate Urine Negative (Negative); Protein Urine Neg (Negative); RBC Urine TOO NUMEROUS TO CNT /hpf (0-2); Squamous Epithelial Cell Urine 0-4 /hpf (0-5); Urobilinogen Urine Neg (Negative); WBC Urine 0-4 /hpf (0-5)
--- NOTE | 2023-10-23 15:24 | P.PN_ITS ---
Subjective 2 Subjective: Patient reports he is doing okay. No shortness of breath. Denies any diarrhea, flank pain. His cough is better and is no longer productive. States he does not really have too much shortness of breath on 3 L. Medications: Reviewed: Yes Vitals/I&O/Wt Last Vital Signs Temp 97.5 F L 10/23/23 11:23 Pulse 78 10/23/23 15:19 Resp 18 10/23/23 15:10 BP 117/54 10/23/23 11:23 Pulse Ox 97 10/23/23 15:10 O2 Del Method Nasal Cannula 10/23/23 15:10 O2 Flow Rate 3 10/23/23 15:10 10/23/23 10/23/23 10/23/23 06:59 14:59 22:59 Intake Total 120 / 1458 1308 / 1308 Output Total 300 / 1200 600 / 600 275 / 875 Balance -180 / 258 708 / 708 -275 / 433 Weight last 48 hrs Weight 92.306 kg Weight 88.592 kg Physical Exam 2 Narrative: General no distress, currently on 3 L.. Neck is supple no lymphadenopathy thyromegaly Cardiovascular regular rate and rhythm with a 2/6 systolic murmur Lungs diminished breath sounds bilaterally with some coarse breath sounds right lower lobe Abdomen is soft with positive bowel sounds. No obvious organomegaly Extremities no cyanosis clubbing or edema, cap refill brisk Data 10/23/23 11:56 10/23/23 05:25 Micro: Microbiology 10/21/23 09:38 Gram Stain - Final Sputum - Expectorated Sputum Sputum Culture - Final Haemophilus influenzae 10/21/23 21:40 Urine Culture - Preliminary Urine,Clean Catch A&P Assessment and plan (1) Acute respiratory failure with hypoxemia: Patient presents with acute respiratory failure with hypoxemia Oxygen as needed, wean as tolerated See notations below Now on 3 L of oxygen which is his baseline (2) Pneumonia: Sputum culture pending Respiratory panel negative Urine Legionella antigen negative Secondary to increasing white blood cell count of 30,000 antibiotics were changed to Zosyn and vancomycin Wean oxygen as tolerated MRSA PCR still pending Repeat CBC, BMP tomorrow Qualifiers: Laterality: bilateral Lung location: lower lobe of lung Pneumonia type: due to unspecified organism Qualified Code(s): J18.9 - Pneumonia, unspecified organism (3) COPD with acute exacerbation: Patient with acute COPD exacerbation Improved and steroids changed to prednisone 40 mg daily Budesonide twice daily DuoNeb every 4 hours (4) Atrial fibrillation: Patient with atrial fibrillation Telemetry Continue amiodarone, Eliquis, diltiazem Currently appears to be in sinus rhythm Qualifiers: Atrial fibrillation type: unspecified Qualified Code(s): I48.91 - Unspecified atrial fibrillation (5) Elevated troponin: Likely this is a type II elevation Recent echocardiogram reviewed Telemetry Serial troponins Continue aspirin, Eliquis, metoprolol (6) Leukocytosis: Patient with significant leukocytosis Monocytes are elevated Consider outpatient evaluation LDH normal CT checked for significant pleural effusion. Minor pleural effusion on the right, right-sided infiltrate consistent with pneumonia, mild left hydro unchanged from before and small left ureteral renal stone Urine has not grown a significant organism. Repeat urine culture performed today. Findings are similar to what they were in June. Request records from urology at [facility] where he was sent at that time. I discussed with him potential transfer, but at this point it is not known if this is an infected stone. Overall, he is not having pain, the hydronephrosis is minimal, his kidney function is stable, he is not having fever. The only concern is elevated white blood cell count which could be explained by other causes. Repeat WBC tomorrow, and will discuss with patient at that time whether or not discharge could occur or urology opinion will be needed. Currently there are no beds at [facility] where he received his care before. Plan Small left ureteral stone, with very mild hydronephrosis and no evidence infection. See notations above Other medical problems as listed in past medical history Full code currently is decision-maker if patient could not make decisions on his own Eliquis will suffice for DVT prophylaxis Attestations 2 Medical Necessity Statement*: Needs continued antibiotics IV, therefore continued hospitalization for pneumonia and frequent breathing treatments for COPD exacerbation. Diagnoses Acute respiratory failure with hypoxemia J96.01 Pneumonia J18.9 Laterality: bilateral Lung location: lower lobe of lung Pneumonia type: due to unspecified organism COPD with acute exacerbation J44.1 Atrial fibrillation I48.91 Atrial fibrillation type: unspecified Elevated troponin R79.89 Leukocytosis D72.829 Time Spent (min) 21
[2023-10-23] MEDS: atorvastatin 40 mg Tablet PO (20:21)
[2023-10-23] MEDS: polyethylene glycol 3350 Pkt 17 gm PO (22:25)
[2023-10-24] VITALS (11 sets, daily range): BP systolic 118–156; BP diastolic 52–76; PULSE 51–87; RESP 14–20; TEMP 34.2–37.2; O2SAT 92–97
[2023-10-24] MEDS: ipratropium-albuterol 3 mL Neb INHALATION ×3 (00:09→11:28)
[2023-10-24] MEDS: piperacillin-tazobactam 3.375 GM in sodium chloride 0.9% (plus) 50 ML IV ×2 (01:36→09:48)
[2023-10-24 06:07] LABS: Basophils # 0.1 10^3/uL (0.0-0.1); Basophils % 0.2 %; Hematocrit 28.3 % (37-53); Lymphocytes # 2.5 10^3/uL (0.8-4.8); Lymphocytes % 10.2 %; Mean Corpuscular HGB Conc 31.1 g/dL (30-55); Mean Corpuscular Hemoglobin 28.8 pg (27-33); Mean Corpuscular Volume 92.5 fl (82-101); Mean Platelet Volume 10.4 fL (7.4-10.4); Monocytes # 1.5 10^3/uL (0.2-0.9); Monocytes % 6.1 %; Neutrophils # 19.65 10^3/uL (1.8-7.7); Neutrophils % 80.4 %; Nucleated Red Blood Cells % 0 %; Platelet Count 481 10^3/cmm (157-399); Red Blood Count 3.06 10^6/uL (3.85-5.65); Red Cell Distribution Width 15.5 % (12.1-15.1); White Blood Count 24.45 10^3/uL (3.29-11.43)
[2023-10-24 06:29] LABS: Alanine Aminotransferase 85 U/L (0-41); Albumin Level 2.8 g/dL (3.5-5.2); Alkaline Phosphatase 74 U/L (40-130); Anion Gap 15.1 (5-19); Aspartate Amino Transferase 46 U/L (0-40); Blood Urea Nitrogen 46 mg/dL (8-23); Calcium 8.5 mg/dL (8.5-10.5); Carbon Dioxide 21 mmol/L (22-29); Chloride 105 mmol/L (98-107); Creatinine Clr Calc Pharmacy 46.5909; Globulin 3.2 g/dL (1.3-4.6); Glucose 120 mg/dL (65-115); Osmolality Calculated 297 mOsm/kg (285-295); Potassium 4.1 mmol/L (3.5-5.1); Sodium 137 mmol/L (136-145); Total Bilirubin 0.2 mg/dL (0.15-1.2)
[2023-10-24 06:33] LABS: Procalcitonin 0.11 ng/mL (0-0.5)
[2023-10-24] MEDS: budesonide 0.5 mg/2 mL Neb INHALATION (07:28)
[2023-10-24] MEDS: vancomycin 1,500 MG/300 ML PIGGYBACK 200 MG IV (07:53)
[2023-10-24] MEDS: tamsulosin 0.4 mg Capsule 0.800000000000000044 MG PO (08:03)
[2023-10-24] MEDS: predniSONE 20 mg Tablet 40 MG PO (08:03)
[2023-10-24] MEDS: finasteride 5 mg Tablet PO (08:04)
[2023-10-24] MEDS: aspirin 81 mg EC Tablet PO (08:04)
[2023-10-24] MEDS: guaiFENesin 600 mg Tablet PO (08:04)
[2023-10-24] MEDS: dilTIAZem ER (24HR) 120 mg Capsule PO ×2 (08:04→08:15)
[2023-10-24] MEDS: gabapentin 300 mg Capsule PO (08:05)
[2023-10-24] MEDS: polyethylene glycol 3350 Pkt 17 gm PO (08:05)
[2023-10-24] MEDS: apixaban 5 mg Tablet PO (08:15)
[2023-10-24] MEDS: metoprolol tartrate 25 mg Tablet PO (08:15)
[2023-10-24] MEDS: amiodarone 200 mg Tablet PO (08:15)
--- NOTE | 2023-10-24 10:21 | PM.DCS ---
Discharge Providers Date of Admission: 10/21/23 11:01 Date of Discharge: October 24, 2023 Attending Provider at Admission: Will Fleming MD Attending Provider at Discharge: Will Fleming MD Primary Care Provider: Caterina Barrett DO Diagnoses at Discharge Discharge Diagnosis (1) Acute respiratory failure with hypoxemia: Status: Acute (2) Pneumonia: Status: Acute Qualifiers: Laterality: bilateral Lung location: lower lobe of lung Pneumonia type: due to unspecified organism Qualified Code(s): J18.9 - Pneumonia, unspecified organism (3) COPD with acute exacerbation: Status: Acute (4) Atrial fibrillation: Status: Inactive Qualifiers: Atrial fibrillation type: unspecified Qualified Code(s): I48.91 - Unspecified atrial fibrillation (5) Elevated troponin: Status: Acute (6) Leukocytosis: Status: Acute Reason for Visit Reason for Visit: sob, cough Hospital Course Hospital Course Pati presented to the hospital with shortness of breath on October 20. There was concern for pneumonia, and COPD exacerbation. He was placed on IV antibiotics initially Rocephin and azithromycin, broadened to Zosyn and vancomycin at 1.8. He was requiring 4 L of oxygen. This eventually tapered down to 3 L which she was supposed to be on at baseline at home. He received IV steroids, that were eventually converted to prednisone. Secondary to increasing white blood cell count, antibiotics were broadened to the above, and a CT chest abdomen pelvis without contrast was obtained. This demonstrated a small right pleural effusion, and patchy infiltrate. No left pleural effusion or pneumonia was noted. He had a 6 mm ureteral calculus at the pelvic inlet with only mild hydronephrosis unchanged from previous CT scan. Urine on admission was significant only for some microscopic hematuria. Urine culture did not grow significant organisms. By October 22 patient was feeling much better, and requesting to go home. As white blood cell count was still significantly elevated he was convinced to stay and receive continued IV therapy. By October 23 he was still feeling well, on baseline oxygen amount, and without any significant discomfort. White blood cell count was decreasing. It was thought he could be discharged home at that time with close follow-up with urology next week, as well as his primary care provider. He will be discharged on Augmentin and doxycycline. An MRSA PCR was pending at discharge. He is to use his home oxygen amount of 3 L. He was instructed to return for any significant worsening. He was able to ask questions and agreed with the plan. Physical Exam Narrative: General exam no distress, oxygen saturation greater than 92% on 3 L Neck supple Cardiovascular regular rate and rhythm Lungs a few coarse breath sounds right lung, lower lobe Abdomen soft nontender Extremities no cyanosis clubbing or edema Discharge Data Studies Completed and Pending Completed Studies During Hospitalization Category Date Time Status CT chest abdomen pelvis [[place] [id number] Cat Scan 10/22/23 08:23 Completed ] Routine XR chest 1V portable 16100 Stat Exams 10/21/23 09:15 Completed Pending at discharge Category Date Time Status Blood Culture Stat Lab 10/21/23 10:15 Results MRSA [Methicillin Resistant S.aureu] Routine Lab 10/22/23 16:42 Received Urine Culture Stat Lab 10/23/23 12:10 Received Vancomycin Trough Timed Lab 10/26/23 06:30 Ordered Radiology Impressions Chest X-Ray 10/21/23 09:15 IMPRESSION: Basilar preponderance interstitial and patchy airspace disease. Chest/Abdomen/Pelvis CT 10/22/23 08:23 IMPRESSION: 1. Small RIGHT pleural effusion with patchy filtrates and compressive atelectasis in the RIGHT lower lobe. 2. 6 mm ureteral calculus at the pelvic inlet in the mid to distal LEFT ureter likely migrated from the renal pelvis on the prior study. Only mild hydronephrosis unchanged from previous 3. No obstructing RIGHT renal or ureteral calculi. 4. Sigmoid diverticulosis. 5. Markedly enlarged prostate unchanged. Recommend correlation PSA. 6. Small esophageal hiatal hernia. 7. Distended stomach with food products and air-fluid levels. Chronic compression deformity T12. Laboratory Results WBC 24.45 10^3/uL (3.29-11.43) H 10/24/23 05:50 RBC 3.06 10^6/uL (3.85-5.65) L 10/24/23 05:50 Hgb 8.80 g/dL (11.27-16.99) L 10/24/23 05:50 Hct 28.3 % (37-53) L 10/24/23 05:50 MCV 92.5 fl (82-101) 10/24/23 05:50 MCH 28.8 pg (27-33) 10/24/23 05:50 MCHC 31.1 g/dL (30-55) 10/24/23 05:50 RDW 15.5 % (12.1-15.1) H 10/24/23 05:50 Plt Count 481 10^3/cmm (157-399) H 10/24/23 05:50 MPV 10.4 fL (7.4-10.4) 10/24/23 05:50 Neut % (Auto) 80.4 % 10/24/23 05:50 Lymph % (Auto) 10.2 % 10/24/23 05:50 [place] % (Auto) 6.1 % 10/24/23 05:50 Eos % (Auto) 0.0 % 10/24/23 05:50 Baso % (Auto) 0.2 % 10/24/23 05:50 Neut # (Auto) 19.65 10^3/uL (1.8-7.7) H 10/24/23 05:50 Lymph # (Auto) 2.5 10^3/uL (0.8-4.8) 10/24/23 05:50 [place] # (Auto) 1.5 10^3/uL (0.2-0.9) H 10/24/23 05:50 Eos # (Auto) 0.0 10^3/uL (0.0-0.8) 10/24/23 05:50 Baso # (Auto) 0.1 10^3/uL (0.0-0.1) 10/24/23 05:50 Nucleated RBC % (auto) 0 % 10/24/23 05:50 Nucleated RBCs # 0.0 /100WBC 10/24/23 05:50 Specimen Type Arterial 10/21/23 09:25 Sample Site Radial, left 10/21/23 09:25 ABG pH 7.42 (7.35-7.45) 10/21/23 09:25 ABG pCO2 40.2 mmHg (35-45) 10/21/23 09:25 ABG pO2 77.7 mmHg (80.0-100.0) L 10/21/23 09:25 ABG HCO3 25.8 mmol/L (22-26) 10/21/23 09:25 ABG O2 Saturation 96.8 10/21/23 09:25 ABG Base Excess 1.1 mmol/L (-2.0-2.0) 10/21/23 09:25 Sam Test Pos 10/21/23 09:25 A-a O2 Gradient 2.8 mmHg (5-10) L 10/21/23 09:25 Hematocrit 31.4 % (42-52) L 10/21/23 09:25 Hgb O2 Saturation 94.5 % (95-100) L 10/21/23 09:25 Carboxyhemoglobin 2.0 %THgb (0.4-20.1) 10/21/23 09:25 Methemoglobin 0.3 % (0.4-1.5) L 10/21/23 09:25 Total Hemoglobin 10.2 g/dL (14-18) L 10/21/23 09:25 Sodium 137.0 mmol/L (131-143) 10/21/23 09:25 Potassium 4.3 mmol/L (3.5-5.0) 10/21/23 09:25 Glucose 115.0 mg/dL (70-115) 10/21/23 09:25 Ionized Calcium 1.2 mmol/L (1.1-1.4) 10/21/23 09:25 O2 Delivery Device Nc 10/21/23 09:25 O2 Liters/Min 2.0 % 10/21/23 09:25 Rn Rehabilitation ID [place] 10/21/23 09:25 Sodium 137 mmol/L (136-145) 10/24/23 05:50 Potassium 4.1 mmol/L (3.5-5.1) 10/24/23 05:50 Chloride 105 mmol/L (98-107) 10/24/23 05:50 Carbon Dioxide 21 mmol/L (22-29) L 10/24/23 05:50 Anion Gap 15.1 (5-19) 10/24/23 05:50 BUN 46 mg/dL (8-23) H 10/24/23 05:50 Creatinine 1.5 mg/dL (0.7-1.2) H 10/24/23 05:50 GFR Calculation Not Reportable 10/24/23 05:50 Glucose 120 mg/dL (65-115) H 10/24/23 05:50 Calculated Osmolality 297 mOsm/kg (285-295) H 10/24/23 05:50 Lactic Acid 1.1 mmol/L (0.5-2.2) 10/21/23 11:16 Calcium 8.5 mg/dL (8.5-10.5) 10/24/23 05:50 Magnesium 2.2 mg/dL (1.7-2.3) 10/23/23 05:25 Total Bilirubin 0.2 mg/dL (0.15-1.2) 10/24/23 05:50 AST 46 U/L (0-40) H 10/24/23 05:50 ALT 85 U/L (0-41) H 10/24/23 05:50 Alkaline Phosphatase 74 U/L (40-130) 10/24/23 05:50 Lactate Dehydrogenase 225 U/L (135-225) 10/21/23 09:13 Troponin T Baseline 68 ng/L (0-15) H 10/21/23 09:13 Troponin T 120 Minute 54.69 ng/L (0-15) H 10/21/23 11:16 Delta Troponin T -13.31 ABS# (0-10) L 10/21/23 11:16 Troponin T Hi Sens 6Hr 41.15 ng/L (0-15) H 10/21/23 17:17 Troponin T Hi Sens 6Hr Delta -26.85 ng/L (0-12) L 10/21/23 17:17 Total Protein 6.0 g/dL (6.6-8.7) L 10/24/23 05:50 Albumin 2.8 g/dL (3.5-5.2) L 10/24/23 05:50 Globulin 3.2 g/dL (1.3-4.6) 10/24/23 05:50 Procalcitonin 0.11 ng/mL (0-0.5) 10/24/23 05:50 Urine Color Yellow (Yellow) 10/23/23 12:10 Urine Appearance Slightly cloudy (CLEAR) 10/23/23 12:10 Urine pH 5 (5-7) 10/23/23 12:10 Ur Specific [place] 1.015 (1.005-1.030) 10/23/23 12:10 Urine Protein Neg (Negative) 10/23/23 12:10 Urine Glucose (UA) Norm (Normal) 10/23/23 12:10 Urine Ketones 1+ (Negative) H 10/23/23 12:10 Urine Blood 3+ (Negative) H 10/23/23 12:10 Urine Nitrate Negative (Negative) 10/23/23 12:10 Urine Bilirubin Neg (Negative) 10/23/23 12:10 Urine Urobilinogen Neg mg/dL (Negative) 10/23/23 12:10 Ur Leukocyte Esterase Negative (Negative) 10/23/23 12:10 Urine RBC Too numerous to cnt /hpf (0-2) H 10/23/23 12:10 Urine WBC 0-4 /hpf (0-5) H 10/23/23 12:10 Ur Squamous Epith Cells 0-4 /hpf (0-5) H 10/23/23 12:10 Uric Acid Crystals 5-10 /hpf H 10/23/23 12:10 Amorphous Sediment Not Reportable 10/23/23 12:10 Urine Bacteria Trace /hpf (NONE) 10/23/23 12:10 Urine Mucus Trace /hpf 10/23/23 12:10 Adenovirus (PCR) Not detected (NOT DETECT) 10/21/23 16:15 C. pneumoniae DNA (PCR) Not detected (NOT DETECT) 10/21/23 16:15 Coronavirus 229E (PCR) Not detected (NOT DETECT) 10/21/23 16:15 Human Metapneumovir PCR Not detected (NOT DETECT) 10/21/23 16:15 Influenza A (H1) PCR Not detected (NOT DETECT) 10/21/23 16:15 Influ A (H1/09) PCR Not detected (NOT DETECT) 10/21/23 16:15 Influenza A (H3) PCR Not detected (NOT DETECT) 10/21/23 16:15 Influenza Type A (PCR) Not detected (NOT DETECT) 10/21/23 16:15 Influenza Type B (PCR) Not detected (NOT DETECT) 10/21/23 16:15 M. pneumoniae (PCR) Not detected (NOT DETECT) 10/21/23 16:15 Parainfluenza 1 (PCR) Not detected (NOT DETECT) 10/21/23 16:15 Parainfluenza 2 (PCR) Not detected (NOT DETECT) 10/21/23 16:15 Parainfluenza 3 (PCR) Not detected (NOT DETECT) 10/21/23 16:15 Parainfluenza 4 (PCR) Not detected (NOT DETECT) 10/21/23 16:15 RSV Type A (PCR) Not detected (NOT DETECT) 10/21/23 16:15 RSV Type B (PCR) Not detected (NOT DETECT) 10/21/23 16:15 Entero/Rhino (PCR) Not detected (NOT DETECT) 10/21/23 16:15 SARS-CoV-2 (PCR) Not detected (NOT DETECT) 10/21/23 16:15 Vitals Last Vital Signs Temp 98.6 F 10/24/23 08:00 Pulse 78 10/24/23 08:14 Resp 14 10/24/23 08:00 BP 156/68 10/24/23 08:00 Pulse Ox 92 10/24/23 08:00 O2 Del Method Nasal Cannula 10/24/23 08:00 O2 Flow Rate 3 10/24/23 07:15 Discharge Plan Discharge Patient Disposition: Home Condition: Stable Prescriptions: New prednisone 20 mg Tablet 40 mg PO DAILY Qty: 10 0RF doxycycline hyclate 100 mg capsule 100 mg PO BID 10 Days Qty: 20 0RF amoxicillin-pot clavulanate 875-125 mg tablet 1 tab PO BID Qty: 14 0RF Continued diltiazem HCl 120 mg tablet extended release 24 hr 120 mg PO DAILY Qty: 90 3RF vitamins A,C,N-ckta-kedrcs 4,296 mcg-226 mg-90 mg Capsule 1 cap PO QAM [place] 0.01 % drops 1 drp ophthalmic (eye) BEDTIME multivitamin Tablet 1 tab PO DAILY Benadryl 25 mg Capsule 25 mg PO TID PRN (Reason: Allergic Symptoms) tramadol 50 mg tablet 100 mg PO QID PRN (Reason: Pain) tamsulosin 0.4 mg capsule 0.8 mg PO QAM gabapentin 300 mg capsule 300 mg PO TID finasteride 5 mg tablet 5 mg PO DAILY Eliquis 5 mg tablet 5 mg PO BID Qty: 60 6RF furosemide [Lasix] 20 mg tablet 20 mg PO DAILY PRN (Reason: Weight gain more than 3 pounds in 24 hours) Qty: 90 2RF omega 8-rcs-ivw-fish oil [Fish Oil] 1,000 mg (120 mg-180 mg) Capsule 1 cap PO DAILY atorvastatin 40 mg Tablet 40 mg PO BEDTIME Qty: 60 0RF amiodarone [Pacerone] 200 mg Tablet 200 mg PO DAILY Qty: 60 4RF aspirin 81 mg Tablet,Delayed Release (Dr/Ec) 81 mg PO DAILY Qty: 30 0RF metoprolol tartrate 25 mg Tablet 25 mg PO BID@0900,2100 Qty: 120 2RF Discharge Orders: Discharge Order (Routine); Ordered 10/24/23 Ordered By: Will Fleming Referrals: Caterina Barrett DO [Primary Care Provider] - 10/25/23 9:45 am (please fax d/c summary to dr barrett CBC on follow-up. White blood cell count appears to be chronically elevated to some degree. Consider further evaluation.) Discharge Diet: Usual diet Discharge Activity: Increase activity as tolerated Patient Instructions: Opioid Safety Activity Restrictions/Additional Instructions: Please arrange urology follow-up with Dr. Rosas at [facility], patient's urologist, next week Take all medicine as prescribed Follow-up with Dr. Barrett, CBC and BMP on follow-up Consider further evaluation of elevated white count if this is persistently elevated as our records here at the hospital suggest Return for any concerns 3 L of oxygen at discharge. This was the amount he was designated to be on at home prior to admission. Discharge Attestations Time Spent in Discharge Care*: greater than 30 min Quality Metrics Clinical Quality Measures [ No reported AMI, CVA or VTE this stay] Coding Level of Care Code 56031 Total time (in minutes) for Discharge: 32 Diagnoses Acute respiratory failure with hypoxemia J96.01 Pneumonia J18.9 Laterality: bilateral Lung location: lower lobe of lung Pneumonia type: due to unspecified organism COPD with acute exacerbation J44.1 Atrial fibrillation I48.91 Atrial fibrillation type: unspecified Elevated troponin R79.89 Leukocytosis D72.829
--- NOTE | 2023-10-24 15:06 | PC.NURSE ---
Discharge follow up appointments and medications discussed with patient. Patient verbalized understanding. Patient is to wait for spouse to pick up man and Appointment for Urology with Dr. Garcia.
[2023-10-24 16:45] LABS: Methicillin-Resist S.aureu PCR NOT DETECTED (NOT DETECTED)
== END 2023-10-24 14:50 | disposition home or self-care (01) | DRG 190 ==
LOC: ER 09:47 → MEDSURG 11:01
PROVIDERS: Admitting Provider Internal Medicine; Emergency Provider Family Medicine; PCP Family Medicine; Visit Provider Internal Medicine
DX: J44.0 Chronic obstructive pulmonary disease with (acute) lower respiratory infection (principal); J18.9 Pneumonia, unspecified organism; J96.01 Acute respiratory failure with hypoxia; I48.20 Chronic atrial fibrillation, unspecified; N13.2 Hydronephrosis with renal and ureteral calculous obstruction; J44.1 Chronic obstructive pulmonary disease with (acute) exacerbation; Z99.81 Dependence on supplemental oxygen; Z79.01 Long term (current) use of anticoagulants; Z79.82 Long term (current) use of aspirin; R31.29 Other microscopic hematuria; Z87.891 Personal history of nicotine dependence; Z86.73 Personal history of transient ischemic attack (TIA), and cerebral infarction without residual deficits; I10 Essential (primary) hypertension; E78.5 Hyperlipidemia, unspecified; I25.10 Atherosclerotic heart disease of native coronary artery without angina pectoris
CPT/HCPCS: 36415; 36600; 71045; 71250; 74176; 80051; 80053; 81001; 82330; 82805; 83605; 83615; 83735; 84145; 84484; 85025; 87040; 87070; 87086; 87205; 87449; 87486; 87581; 87633; 87641; 92523; 92526; 92610; 93005; 94640; 96365; 99285; J0456; J0696; J1100; J1940; J2543; J2919; J3370; J7030; J7050; J7512; J7626

== ENCOUNTER 2023-12-25 12:04 | Outpatient (CLI) | payer MEDICARE, MEDICAID, SELFPAY ==
--- NOTE | 2023-12-25 12:24 | XR_ITS ---
WS: [id number] Examination: XR chest 2V* [id number] Reason for Exam: CHRONIC RESPIRATORY FAILURE W/HYPOXIA HYPERCAPNIA Date: December 25, 2023 Comparison: October 23, 2023 Findings: The heart is prominent size. The mediastinum is not widened The lungs are hyperinflated. Chronic obstructive changes are present. Basilar scarring is again noted . There is no pulmonary edema or large effusion There is a right middle lobe infiltrate. There is old wedging of T12 XR/XR chest 2V* [id number] Impression: Chronic obstructive lung disease is present. There is a right middle lobe infil trate noted.
== END 2023-12-25 12:05 | disposition home or self-care (01) ==
PROVIDERS: PCP Family Medicine; Visit Provider Nurse Practitioner Family
DX: J96.11 Chronic respiratory failure with hypoxia (principal)
CPT/HCPCS: 71046